=== PATIENT | male | born 1955 | race Caucasian/White ===

== ENCOUNTER → 2018-02-18 10:09 | Outpatient (CLI) | payer MEDICAID, SELFPAY ==
[2018-02-18 12:35] LABS: Anion Gap 6 (5-15); BUN 17 mg/dL (7-18); BUN/Creat Ratio 20.2 RATIO (10-20); Calcium,Total 9.3 mg/dL (8.5-10.1); Chloride 99 mmol/L (98-107); Creatinine, Serum 0.84 mg/dL (0.70-1.30); EST Glomerular Filtration Rate 99 mL/min (>60); Est Glom Filt Rate - Afr Amer 120 mL/min (>60); Glucose 110 mg/dL (74-106); Potassium 4.1 mmol/L (3.5-5.1); Sodium Level 135 mmol/L (136-145)
== END ==
PROVIDERS: Family Provider Family Medicine; PCP Family Medicine; Visit Provider Family Medicine
DX: E11.9 Type 2 diabetes mellitus without complications (principal)
CPT/HCPCS: 36415; 80048

== ENCOUNTER 2018-05-07 09:47 | Outpatient (RCR) | payer MEDICAID, SELFPAY | END 2018-05-08 23:59 | LOC: NS 09:47 | PROVIDERS: Family Provider Family Medicine; PCP Family Medicine; Visit Provider Orthopaedic Surgery | DX: E66.9 Obesity, unspecified (principal); Z68.42 Body mass index [BMI] 45.0-49.9, adult; Z71.3 Dietary counseling and surveillance | CPT/HCPCS: 97802 ==

== ENCOUNTER 2018-05-28 08:19 | Outpatient (RCR) | payer MEDICAID, SELFPAY | END 2018-06-07 23:59 | LOC: NS 08:19 | PROVIDERS: Family Provider Family Medicine; PCP Family Medicine; Visit Provider Orthopaedic Surgery | DX: E66.9 Obesity, unspecified (principal); Z68.42 Body mass index [BMI] 45.0-49.9, adult; Z71.3 Dietary counseling and surveillance | CPT/HCPCS: 97803 ==

== ENCOUNTER 2018-07-02 09:30 | Outpatient (RCR) | payer MEDICAID, SELFPAY | END 2018-07-08 23:59 | LOC: NS 09:30 | PROVIDERS: Family Provider Family Medicine; PCP Family Medicine; Visit Provider Orthopaedic Surgery | DX: E66.9 Obesity, unspecified (principal); Z68.42 Body mass index [BMI] 45.0-49.9, adult; Z71.3 Dietary counseling and surveillance | CPT/HCPCS: 97803 ==

== ENCOUNTER 2018-08-05 10:00 | Outpatient (RCR) | payer MEDICAID, SELFPAY | END 2018-08-07 23:59 | LOC: NS 10:00 | PROVIDERS: Family Provider Family Medicine; PCP Family Medicine; Visit Provider Orthopaedic Surgery | DX: E66.9 Obesity, unspecified (principal); Z68.42 Body mass index [BMI] 45.0-49.9, adult; Z71.3 Dietary counseling and surveillance | CPT/HCPCS: 97803 ==

== ENCOUNTER → 2018-08-21 09:57 | Outpatient (CLI) | payer MEDICAID, SELFPAY ==
[2018-08-21 13:39] LABS: AST(SGOT) 33 U/L (15-37); Alanine Aminotransfer ALT/SGPT 42 U/L (16-61); Albumin, Serum 3.9 g/dL (3.2-5.0); Alkaline Phosphatase 104 U/L (45-117); Anion Gap 8 (5-15); BUN 14 mg/dL (7-18); Calcium,Total 8.9 mg/dL (8.5-10.1); Chloride 100 mmol/L (98-107); Cholesterol 135 mg/dL (200); Creatinine, Serum 0.74 mg/dL (0.70-1.30); EST Glomerular Filtration Rate 115 mL/min (>60); Est Glom Filt Rate - Afr Amer 139 mL/min (>60); Globulin 3.6 g/dL (2.2-4.2); Glucose 121 mg/dL (74-106); High Density Lipoprotein 35 mg/dL; Potassium 4.1 mmol/L (3.5-5.1); Protein, Total 7.5 g/dL (6.4-8.2); Sodium Level 139 mmol/L (136-145); Triglycerides 177 mg/dL; Very Low Density Lipoprotein 35 mg/dL (5-40)
--- OUTSIDE RECORDS SUMMARY | 2018-10-07 00:24 | XMS RPT_ITS ---
:1955 Author Organization OHIP Care Team Providers Name Role Phone Elena Schwartz Attending Unavailable Jolliff, Elena Primary Care Unavailable Germain Pedro Attending Unavailable Jolliff, Elena Primary Care Unavailable Jolliff, Elena Attending Unavailable Jolliff, Elena Primary Care Unavailable Germain Pedro Attending Unavailable Jolliff, Elena Primary Care Unavailable Germain Pedro Attending Unavailable Jolliff, Elena Primary Care Unavailable Germain Pedro Attending Unavailable Jolliff, Elena Primary Care Unavailable Germain Pedro Attending Unavailable Jolliff, Elena Primary Care Unavailable Germain Pedro Attending Unavailable Jolliff, Elena Primary Care Unavailable PROBLEMS PROBLEMS DATE TYPE CONDITION / CODE ATTENDING STATUS SOURCE 09/17/2018 Unknown E66.9 - Obesity, Germain Pedro Active [facility] unspecified / Community E66.9(ICD-10) Hospital Repository 02/18/2018 Unknown E11.9 - Type 2 Elena Schwartz Active [facility] diabetes mellitus Community without Hospital complications / Repository E11.9(ICD-10) PROCEDURES PROCEDURES No Procedure Records FoundRESULTS RESULTS BASIC METABOLIC Collected: 08/21/2018 Status: F Source: INDIRA PROFILE (BMP) 9:58 AM [facility] REPOSITORY TYPE CODE TESTS RESULT OUT OF RANGE REFERENCE UNITS LAB L501.0100 74-106 mg/dL High GLU 121 Result Comment: Fasting Glucose result from 100 to 125 mg/dL suggests IMPAIRED HOMEOSTASIS per A.D.A. criteria. Please note revised GLUCOSE reference range effective 2017. LAB L501.1000 7-18 mg/dL Normal BUN 14 LAB L501.1100 0.70-1.30 mg/dL Normal CREAT,SERUM 0.74 Result Comment: The validity of the calculated GFR AND GFRAA in patients over 70 years has not been determined. Clinical correlation is essential. LAB L501.1110 >60 mL/min Normal EST GFR 115 Result Comment: Non- GFR Calc LAB L501.1115 >60 mL/min Normal EST GFR - AA 139 Result Comment: GFR Calc LAB L501.1300 10-20 RATIO Normal BUN/CRE 19.0 LAB L501.2200 8.5-10.1 mg/dL CA Normal 8.9 LAB L501.5300 136-145 mmol/L NA Normal 139 LAB L501.5600 3.5-5.1 mmol/L K Normal 4.1 LAB L501.5900 98-107 mmol/L CL Normal 100 LAB L501.6100 21.0-32.0 mmol/L Normal CO2 31.0 LAB L501.6200 5-15 Normal GAP 8 Performed By: #### L500.2500, L500.3400, L500.4100 #### [facility] [address] [place], [address] LIVER PROFILE Collected: 08/21/2018 Status: F Source: INDIRA 9:58 AM [facility] REPOSITORY TYPE CODE TESTS RESULT OUT OF RANGE REFERENCE UNITS LAB L501.1500 6.4-8.2 g/dL Normal T PROT 7.5 LAB L501.1800 3.2-5.0 g/dL Normal ALB 3.9 LAB L501.1950 2.2-4.2 g/dL Normal GLOB 3.6 LAB L501.4100 15-37 U/L Normal AST 33 LAB L501.4305 45-117 U/L Normal ALK P 104 LAB L501.4405 16-61 U/L Normal ALT 42 LAB L501.4600 0.20-1.00 mg/dL Normal T BILI 0.70 LAB L501.4700 0.00-0.30 mg/dL Normal D BILI 0.20 Performed By: #### L500.2500, L500.3400, L500.4100 #### [facility] [address] [facility]. [place], [place], [id number] LIPID PROFILE Collected: 08/21/2018 Status: F Source: MATHEWS 9:58 AM [facility] REPOSITORY TYPE CODE TESTS RESULT OUT OF RANGE REFERENCE UNITS LAB L501.4900 200 mg/dL Normal CHOL 135 Result Comment: <200 mg/dL Desirable 200-240 mg/dL Borderline >240 mg/dL High Risk LAB L501.5000 mg/dL Normal TRIG 177 Result Comment: The drugs N-Acetylcysteine and Metamizole may falsely depress this assay. Serum Triglycerides Reference Interval Normal <150 mg/dL Borderline high 150 - 199 mg/dL High 200 - 499 mg/dL Very High > or = 500 mg/dL LAB L501.6400 mg/dL Low HDL 35 Result Comment: The drugs N-Acetylcysteine and Metamizole may falsely depress this assay. Reference Range HDL <40 mg/dL Low HDL Cholesterol HDL >or= 60 mg/dL High HDL Cholesterol LAB L501.6500 0-130 mg/dL Normal LDL 65 LAB L501.6600 5-40 mg/dL Normal VLDL 35 Performed By: #### L500.2500, L500.3400, L500.4100 #### [facility] [address] [facility]. [place], [place], [id number] BASIC METABOLIC Collected: 02/18/2018 Status: F Source: INDIRA PROFILE (BMP) 10:10 AM [facility] REPOSITORY TYPE CODE TESTS RESULT OUT OF RANGE REFERENCE UNITS LAB L501.0100 74-106 mg/dL High GLU 110 Result Comment: Fasting Glucose result from 100 to 125 mg/dL suggests IMPAIRED HOMEOSTASIS per A.D.A. criteria. Please note revised GLUCOSE reference range effective 2017. LAB L501.1000 7-18 mg/dL Normal BUN 17 LAB L501.1100 0.70-1.30 mg/dL Normal CREAT,SERUM 0.84 Result Comment: The validity of the calculated GFR AND GFRAA in patients over 70 years has not been determined. Clinical correlation is essential. LAB L501.1110 >60 mL/min Normal EST GFR 99 Result Comment: Non- GFR Calc LAB L501.1115 >60 mL/min Normal EST GFR - AA 120 Result Comment: GFR Calc LAB L501.1300 10-20 RATIO High BUN/CRE 20.2 LAB L501.2200 8.5-10.1 mg/dL CA Normal 9.3 LAB L501.5300 136-145 mmol/L Low NA 135 LAB L501.5600 3.5-5.1 mmol/L K Normal 4.1 LAB L501.5900 98-107 mmol/L CL Normal 99 LAB L501.6100 21.0-32.0 mmol/L Normal CO2 30.0 LAB L501.6200 5-15 Normal GAP 6 Performed By: #### L500.2500 #### [facility] [address] [place], [place] [address], [place], [address] ALLERGIES ALLERGIES No Allergies Records FoundENCOUNTERS ENCOUNTERS ADMIT/DISCHARGE ACCOUNT ADMITTING ENCOUNTER LOCATION SOURCE NUMBER CLASS 09/17/2018 [id number] Ambulatory [place] [facility] 1 [facility] ing:NS Repository 08/25/2018/ [id number] [facility] [place] [facility] 8 1 [facility] ing:NS Repository 08/21/2018 [id number] Ambulatory Indira Indira 2 [facility] ing:MFPLAB Repository 08/05/2018/ [id number] Ambulatory [place] Ind[facility] 8 9 [facility] ing:NS Repository 07/02/2018/ [id number] Ambulatory [facility] 8 0 [facility] ing:NS Repository 05/28/2018/ [id number] Ambulatory Ind[facility] [place] 8 6 [facility] ing:NS Repository 05/07/2018/ [id number] Amb[facility] [place] [facility] 8 2 [facility] ing:NS Repository 02/18/2018 [id number] Ambulatory [place] Indira 2 [facility] ing:MFPLAB Repository PAYERS PAYERS ENCOUNTER GUARANTOR PAYER SUBSCRIBER SOURCE 09/17/2018 Negra J [id number] Primary Negra [place] Insurance:CARESOURCEP EwingDOB: [facility] Number: [id number] [address]Qzo: 330 [id number] Repository [phone] (HP) Date:2018-05-06[address]ATTN: [place] [address]NF: 09/17/2018 Secondary NOT GIVENUNK Indira Insurance:SELF PAY [facility] Number: Effective Repository Date:2018-09-08 08/25/2018 Negra J [id number] Primary Negra [place] Insurance:CARESOURCEP EwingDOB: [facility] Number: [id number] [address]Tok: 330 [id number] Repository [phone] (HP) Date:2018-05-06[address]ATTN: [place] [address]BY: 08/25/2018 Secondary NOT GIVENUNK [place] Insurance:SELF PAY [facility] Number: Effective Repository Date:2018-08-08 08/21/2018 Negra J [id number] [facility]:CARESOURCEP EwingDOB: [facility] Number: [id number] [address]Xuu: 330 [id number] Repository [phone] () Date:2018-08-21[address]ATTN: [place] [address]JB: 08/21/2018 Secondary NOT GIVENUNK [place] Insurance:SELF PAY [facility] Number: Effective Repository Date:2018-08-21 08/05/2018 Negra [id number] Primary Negra [place] Insurance:CARESOURCEP [facility] Number: [id number] [facility] [address]Ons: [phone] [id number] Repository [phone] () Date:2018-05-[address]ATTN: [place] [address]XO: 08/05/2018 Secondary NOT GIVENUNK Indira Insurance:SELF PAY [facility] Number: Effective Repository Date:2018-07-09 07/02/2018 Negra [id number] [facility] Insurance:CARESOURCEP [facility] Number: [id number] [address]Epk: [phone] [id number] Repository [phone] () Date:2018-05-06[address]ATTN: [place] [address]KA: 07/02/2018 Secondary NOT GIVENUNK Indira Insurance:SELF PAY [facility] Number: Effective Repository Date:2018-06-08 05/28/2018 Negra [id number] [facility] Insurance:CARESOURCEP [facility] Number: [id number] [facility] [address]Now: 330 [id number] Repository [phone] () Date:2018-05-06[address]ATTN: [place] [address]OQ: 05/28/2018 Secondary NOT GIVENUNK [place] Insurance:SELF PAY [facility] Number: Effective Repository Date:2018-05-09 05/07/2018 Negra [id number] [facility] Insurance:CARESOURCEP EwingDOB: [facility] Number: [id number] [facility] [address]Frz: [phone]) [id number] Repository [phone] () Date:2018-05-06[address]ATTN: [place] [address]IG: 05/07/2018 Secondary NOT GIVENUNK [place] Insurance:SELF PAY [facility] Number: Effective Repository Date:2018-05-06 02/18/2018 Negra [id number] Primary Negra [place] Insurance:BENITOSOMARGOT YanB: [facility] Number: [id number] [facility] [address]Cms: [phone] [id number] Repository [phone] () Date:2018-02-18[address]ATTN: [place] [address]RO: 02/18/2018 Secondary NOT GIVENUNK Indira Insurance:SELF PAY [facility] Number: Effective Repository Date:2018-02-18
== END ==
PROVIDERS: Family Provider Family Medicine; PCP Family Medicine; Visit Provider Family Medicine
DX: E11.9 Type 2 diabetes mellitus without complications (principal)
CPT/HCPCS: 36415; 80048; 80061; 80076

== ENCOUNTER 2018-08-25 09:31 | Outpatient (RCR) | payer MEDICAID, SELFPAY | END 2018-09-07 23:59 | LOC: NS 09:31 | PROVIDERS: Family Provider Family Medicine; PCP Family Medicine; Visit Provider Orthopaedic Surgery | DX: E66.9 Obesity, unspecified (principal); Z68.42 Body mass index [BMI] 45.0-49.9, adult; Z71.3 Dietary counseling and surveillance | CPT/HCPCS: 97803 ==

== ENCOUNTER 2018-10-02 08:30 | Outpatient (RCR) | payer MEDICAID, SELFPAY | END 2018-10-08 23:59 | LOC: NS 08:30 | PROVIDERS: Family Provider Family Medicine; PCP Family Medicine; Visit Provider Orthopaedic Surgery | DX: E66.9 Obesity, unspecified (principal); Z68.42 Body mass index [BMI] 45.0-49.9, adult; Z71.3 Dietary counseling and surveillance | CPT/HCPCS: 97803 ==

== ENCOUNTER 2018-10-30 09:00 | Outpatient (RCR) | payer MEDICAID, SELFPAY | END 2018-10-30 23:59 | disposition home or self-care (01) | LOC: NS 09:00 | PROVIDERS: Family Provider Family Medicine; PCP Family Medicine; Visit Provider Orthopaedic Surgery | DX: E66.9 Obesity, unspecified (principal); Z68.42 Body mass index [BMI] 45.0-49.9, adult; Z71.3 Dietary counseling and surveillance | CPT/HCPCS: 97803 ==

== ENCOUNTER → 2018-12-07 13:44 | Outpatient (CLI) | payer MEDICAID, SELFPAY | PROVIDERS: Family Provider Family Medicine; PCP Family Medicine; Referring Provider Family Medicine; Visit Provider Family Medicine | DX: L02.91 Cutaneous abscess, unspecified (principal) | CPT/HCPCS: 87070; 87077; 87186; 87205 ==

== ENCOUNTER 2018-12-08 09:35 | Emergency (ER) | payer MEDICAID, SELFPAY ==
[2018-12-08 09:36] VITALS: BP 164/94; PULSE 100; RESP 16; TEMP 36.7; O2SAT 93; BMI 48.0
--- NOTE | 2018-12-08 10:09 | RAD_ITS ---
STUDY: X-RAY - LEFT KNEE REASON FOR EXAM: Male, 63 years old. Increasing left knee pain. No known injury. TECHNIQUE: 4 view(s) of the knee. COMPARISON: None. FINDINGS: Normal visualized distal femur. There is a 2.8 cm x 2 cm sclerotic focus arising along the lateral aspect of the proximal diaphysis of the tibia. A central lucency is seen within it. This may represent an osteoid osteoma. Normal proximal tibiofibular articulation. There is moderate degenerative arthrosis of the medial femorotibial compartment with moderate joint space narrowing. Normal lateral femorotibial compartment. There is moderate degenerative arthrosis of the patellofemoral articulation. Small joint effusion. RAD/Knee 4 or More Views IMPRESSION: Degenerative arthrosis. Focal sclerosis along the lateral aspect of the proximal tibia as described. A central lucency is seen. Osteoid osteoma should be ruled out. Small joint effusion. Electronically Signed: Adam Franklin, at 10:43 EDT , Service support ,
--- NOTE | 2018-12-08 10:11 | ED.VISSUMM ---
- ER Visit Summary Date of Service: 12/08/18 Chief Complaint: Knee pain History of Present Illness: The patient is a 63 M with left knee pain. Patient has had ongoing pain, but it is getting more severe. No new injuries or symptoms except he was just unable to bear weight because the pain was so severe. He is using anti-inflammatories with no relief. He does have a known history of osteoarthritis. No history of gout or infections. No instrumentation or surgery to the knee. Physical Examination: Afebrile and vital signs unremarkable. Inspection is normal. Good range of motion in extension. No laxity or deformity. He does have some medial sided joint line tenderness on the left knee. Otherwise exam is unremarkable. He is neurovascular intact distally. His calf is soft and supple. Test Results: X-rays performed Emergency Department Course and Treatment: Patient treated with oxycodone while awaiting results. X-rays show arthritis and a small effusion. He does have a lucency over the lateral proximal tibia concerning for malignancy. He will be treated with pain medication and crutches. Follow-up with Dr. Flor for orthopedic oncology. Treatment Plan: As above Disposition: Discharge Impression: 1. Left knee pain This note was generated with [employer]ide[employer] dictation software. It may contain incorrect words, spelling, and punctuation that were not noted in review of the chart prior to signing ED Disposition - Plan for ED Patient: Referrals: Elena Schwartz MD [Primary Care Provider] -
[2018-12-08] MEDS: oxyCODONE 5 MG Tablet 10 MG PO (10:37)
--- NOTE | 2018-12-08 11:01 | ED.DEP ---
ED Disposition - Plan for ED Patient: Instructions: ED Knee Pain UKO Prescriptions: traMADol [Ultram] 50 mg PO Q6H PRN PRN 3 Days #12 tab PRN Reason: Pain Additional Instructions: Follow up Dr. Travis Flor at [facility] [phone]
[2018-12-08 11:36] VITALS: BP 147/83; PULSE 100; RESP 18; O2SAT 99
== END 2018-12-08 11:37 | disposition home or self-care (01) ==
LOC: ED 10:25
PROVIDERS: Emergency Provider Emergency Medicine; Family Provider Family Medicine; PCP Family Medicine
DX: M25.562 Pain in left knee (principal); M17.12 Unilateral primary osteoarthritis, left knee
CPT/HCPCS: 73564; 99283

== ENCOUNTER → 2019-02-23 | Outpatient (CLI) | payer OTHER, SELFPAY ==
[2019-02-23 12:44] LABS: Hemoglobin A1c 7.4 % (4.2-6.3)
== END | disposition home or self-care (01) ==
LOC: MFPLAB 10:07
PROVIDERS: Family Provider Family Medicine; PCP Family Medicine; Referring Provider Family Medicine; Visit Provider Family Medicine
DX: E11.9 Type 2 diabetes mellitus without complications (principal)
CPT/HCPCS: 36415; 83036

== ENCOUNTER → 2019-02-24 | Outpatient (CLI) | payer OTHER, SELFPAY ==
[2019-02-24 14:38] LABS: Microalbumin,Random Urine 29.1 mg/L (NO RANGE EST.)
== END | disposition home or self-care (01) ==
LOC: LABSPEC 12:16
PROVIDERS: Family Provider Family Medicine; PCP Family Medicine; Referring Provider Family Medicine; Visit Provider Family Medicine
DX: E11.9 Type 2 diabetes mellitus without complications (principal)
CPT/HCPCS: 82043; 82570

== ENCOUNTER 2019-03-03 09:12 | Day surgery (SDC) | payer OTHER, SELFPAY ==
[2019-03-03 09:24] VITALS: BP 144/89; PULSE 90; RESP 18; TEMP 36.5; O2SAT 95; BMI 47.2
--- NOTE | 2019-03-03 09:43 | H&P.OPEN ---
History of Present Illness Date of Admission: 03/03/19 The patient is a 63 year old M presents for screening colonoscopy. Patient states he last had a scope over 10 years ago. States he has bowel movements daily, denies any blood, denies any abdominal pain/nausea/vomiting. Patient denies any family history of colon cancer. Past Medical/Surgical History - Planned Operation Planned Operative Procedure/s: COLONOSCOPY Date of Operative Procedure: 03/03/19 Permit Signed: Yes S.O.S: No Is This Patient Having a Total Joint: No - Previous Hospitalizations/Surgeries HX Hospitalizations: No HX of Surgeries: COLONOSCOPY Any Problems With Anesthesia: No You/Your Family Experience Fever (Hyperthermia) With Anes: No Cholinesterase deficiency: No - Cardiovascular Hx Chest Pain within Last 2 months: No Hx of Irregular Heartbeat and/or Afib: No Hx Heart Attack: No Hx Congestive Heart Failure: No Hx Rheumatic Fever: No Hx Hypertension: Yes - ON MED Hx Internal Defibrillator: No Hx Pacemaker: No Hx Cardiac Catheterization: No Hx Cardiac Surgery/Stents/Etc.: No Hx Stress Test: No HX Edema: No Hx Pain in Legs when Walking/Leg Cramps: No - Respiratory Chronic Cough: No HX of Shortness of Breath: No Hoarseness: No Hx Chronic Obstructive Pulmonary Disease (COPD): No Hx Asthma: No Hx Emphysema: No Hx Sleep Apnea: No Hx Oxygen Use at Home: No Hx Respiratory Tract Infection/Cold (presently): No Do You Snore Loudly (louder than talking or can be heard): No Do You Often Feel Tired/ Fatigued/ Sleepy Dring Daytime?: No Has Anyone Observed You Stop Breathing During Sleep?: No Result (for STOP score): Negative Hx Smoking: No Smoking Status: Never smoker - Gastrointestinal Hx Gastroesophageal Reflux: No Hx Gastrointestinal Disorders: No Hx Gastrointestinal Bleed: No Hx Ulcer: No Hx Hiatal Hernia: No Difficulty Chewing/Swallowing: Yes Recent Onset of Swallowing Problems: No Special diet followed at home: No Hx Unplanned Weight Loss of 20#: No HX Unplanned Weight Gain of 20#: No - Neurological Hx Seizures: No HX Syncope/Blackout Spells/Unconsciousness: No Hx CVA/Stroke: No Hx Transient Ischemic Attacks (TIA): No Hx Multiple Sclerosis: No Hx Parkinson's Disease: No Hx Head/Neck Injury: Yes - FX SKULL 28 YRS AGO Hx Headaches: No Hx Back Injury/Pain: Yes - PINCHED NERVE Recent Onset of Speech Difficulty: No Restless Legs: No Does patient have nerve stimulator: No - Blood Disorder Hx Leukemia: No Bleeding Tendencies: No Hx Deep Vein Thrombosis: No Hx High Cholesterol: Yes - ON MED Blood Transmitted Disease: No Hx Hepatitis: No Hx Cirrhosis: No Hx Anemia: No Hx Blood Disorders: No - Reproduction : No Is Patient Lactating: No Hx Hysterectomy: No - Genitourinary Hx Renal Disease: No - Musculoskeletal Hx Arthritis: Yes Hx Rheumatoid Arthritis: No Hx Gout: No Recent Onset of an Orthopedic Problem: Yes - Endocrine Hx Diabetes: Yes Insulin: No Thyroid Disease: No Hx Steroid Therapy: No - Psycho/Social Hx Substance Use: No Hx Alcohol Use: No Hx Anxiety: No Hx Depression: No Mental Illness: No Hx Dementia: No - Miscellaneous Hx Cancer: No Recent Exposure to Contagious Disease: No Active MRSA: No Hx of C-Diff: No Any Loose Teeth: No Allergies acetaminophen [From Tylenol] Allergy (Verified 03/01/19 11:54) Rash feathers Allergy (Verified 03/01/19 11:54) Other CONGESTION - Discharge Is Pt Admitted From a Jail, or a [place] [facility]: No Who Could Help: FATHER-TONY After D/C, Where Do you Plan to Go: Return Home - Physical Exam General: Alert, Oriented x3, Cooperative, No apparent distress HEENT: Atraumatic Lungs: Normal air movement Cardiovascular: Regular rate Abdomen: Soft, Non Tender - No peritoneal signs, Non-Distended, Obese Extremities: No clubbing, No cyanosis, No edema Neurological: Cranial nerves II-XII grossly intact Psych/Mental Status: Normal Affect Vital Signs Temp Pulse Resp BP Pulse Ox 97.7 F L 90 18 144/89 H 95 03/03/19 09:24 03/03/19 09:24 03/03/19 09:24 03/03/19 09:24 03/03/19 09:24 Oxygen Delivery Method Room Air Weight: 275 lb 2.19 oz Body Mass Index (BMI) 47.2 Assessment/Plan 63-year-old male for screening for colon cancer Surgery Risks - Colonoscopy I discussed with the patient the risks of the procedure: Yes Risks Include but are not Limited To: Risks include but are not limited to: Bleeding, perforation requiring further surgery, inability to complete colonoscopy requiring barium enema. Patient no further questions.
[2019-03-03 09:51] LABS: Bedside Glucose 148 mg/dL (70-110)
--- NOTE | 2019-03-03 10:22 | OP.ENDO_ITS ---
03/03/2019 lEena Schwartz [address] [place] [address] Re : Colonoscopy procedure for Wes Roth Dear Dr. Schwartz This procedure was performed on Sunday, March 03, 2019. My impressions and recommendations are as follows: Impressions : - The entire examined colon is normal on direct and retroflexion views. - No specimens collected. Recommendations : - Discharge patient to home. - Continue present medications. - Repeat colonoscopy in 10 years for screening purposes. My findings are described in the full procedure note, which is enclosed. If I can be of further assistance, please feel free to contact me at Doctor phone number(s): , Work: . Sincerely, MD Marianela Andrade MD 03/03/2019 10:21:49 AM This report has been signed electronically.
[2019-03-03 10:25] VITALS: BP 144/89; BP 145/65; PULSE 99; RESP 18; TEMP 36.1
[2019-03-03 10:30] VITALS: BP 144/89; BP 160/80; PULSE 99; RESP 18; O2SAT 94
[2019-03-03 10:35] VITALS: BP 144/89; BP 167/77; PULSE 92; RESP 18; O2SAT 94
[2019-03-03 10:40] VITALS: BP 144/89; BP 158/75; PULSE 87; RESP 18; TEMP 36.6; O2SAT 94
[2019-03-03 10:49] VITALS: BP 144/89
== END 2019-03-03 11:09 | disposition home or self-care (01) ==
LOC: EN 09:12 → AC 09:14
PROVIDERS: Family Provider Family Medicine; PCP Family Medicine; Referring Provider Surgery; Visit Provider Surgery
PROC: 0DJD8ZZ Inspection of Lower Intestinal Tract, Via Natural or Artificial Opening Endoscopic (ICD-10-PCS; CPT 45378; principal; 2019-03-03 10:10)
DX: Z12.11 Encounter for screening for malignant neoplasm of colon (principal); E78.00 Pure hypercholesterolemia, unspecified; I10 Essential (primary) hypertension; E11.9 Type 2 diabetes mellitus without complications; Z79.84 Long term (current) use of oral hypoglycemic drugs; Z79.82 Long term (current) use of aspirin; Z79.899 Other long term (current) drug therapy
CPT/HCPCS: 45378; 82962; J7120

== ENCOUNTER → 2019-08-24 10:13 | Outpatient (CLI) | payer OTHER, SELFPAY ==
[2019-08-24 12:56] LABS: AST(SGOT) 24 U/L (15-37); Alanine Aminotransfer ALT/SGPT 38 U/L (16-61); Albumin, Serum 3.7 g/dL (3.2-5.0); Alkaline Phosphatase 112 U/L (45-117); Anion Gap 7 (5-15); BUN 18 mg/dL (7-18); BUN/Creat Ratio 19.4 RATIO (10-20); Bilirubin, Direct 0.12 mg/dL (0.00-0.30); Calcium,Total 9.1 mg/dL (8.5-10.1); Chloride 100 mmol/L (98-107); Cholesterol 156 mg/dL (200); Creatinine, Serum 0.93 mg/dL (0.70-1.30); EST Glomerular Filtration Rate 88 mL/min (>60); Est Glom Filt Rate - Afr Amer 106 mL/min (>60); Globulin 4.4 g/dL (2.2-4.2); Glucose 158 mg/dL (74-106); High Density Lipoprotein 32 mg/dL; Potassium 4.3 mmol/L (3.5-5.1); Protein, Total 8.1 g/dL (6.4-8.2); Sodium Level 136 mmol/L (136-145); Triglycerides 240 mg/dL; Very Low Density Lipoprotein 48 mg/dL (5-40)
== END ==
PROVIDERS: Family Provider Family Medicine; PCP Family Medicine; Referring Provider Family Medicine; Visit Provider Family Medicine
DX: E11.9 Type 2 diabetes mellitus without complications (principal)
CPT/HCPCS: 36415; 80048; 80061; 80076

== ENCOUNTER 2019-09-20 07:25 | Observation (INO) | payer OTHER, SELFPAY ==
[2019-08-26 15:23] VITALS: BP 147/91; PULSE 75; RESP 16; TEMP 37.2; O2SAT 91; BMI 48.1
--- NOTE | 2019-08-26 15:28 | SDCEKG_ITS ---
Test Reason : Blood Pressure : / mmHG Vent. Rate : 089 BPM Atrial Rate : 089 BPM P-R Int : 142 ms QRS Dur : 076 ms QT Int : 368 ms P-R-T Axes : 037 040 056 degrees QTc Int : 447 ms Normal sinus rhythm Normal ECG Confirmed by ÁLVARO DE SANTIAGO, SARAH ([id number]), editorial clerk ANDREW HARVEY ([id number]) on 08/30/2019 11:20:35 AM Referred By: Drew Jiménez Confirmed By:SARAH REA MD
[2019-08-26 15:56] LABS: Absolute Lymphocyte Count 0.85 X10^3/uL (0.83-4.51); Absolute Neutrophil Count 7.6 X10^3/uL (2.0-7.7); Basophil# 0.04 X10^3/uL; Basophil% 0.4 % (0-1); Eosinophil# 0.09 X10^3/uL; Hematocrit 46.2 % (40-54); Hemoglobin 15.2 g/dL (13.0-16.5); Lymphocyte # 0.85 X10^3/ul (4.0); Lymphocyte % 9.1 % (19-41); Mean Corp Hgb Conc 32.9 g/dL (32-36); Mean Corpuscular Hgb 30.8 pg (27.0-32.0); Mean Corpuscular Volume 93.5 fL (80-94); Mean Platelet Vol. 10.5 fl (6.2-12.0); Monocyte# 0.74 X10^3/uL; Monocyte% 7.9 % (0-10); NRBC Flagged by Analyzer 0 % (0-5); Neutrophil # 7.57 X10^3/uL (2.7-7.7); Neutrophil % 81.2 % (47-70); Platelet Count 226 K/mm3 (150-450); RBC Distribution Width SD 47.4 fl (35.1-43.9); Red Blood Count 4.94 M/mm3 (4.6-6.2); White Blood Count 9.3 K/mm3 (4.4-11.0)
[2019-08-26 16:21] LABS: Hemoglobin A1c 7.7 % (4.2-6.3)
[2019-08-26 16:29] LABS: Anion Gap 6 (5-15); BUN 17 mg/dL (7-18); Calcium,Total 9.2 mg/dL (8.5-10.1); Chloride 100 mmol/L (98-107); Creatinine, Serum 0.85 mg/dL (0.70-1.30); EST Glomerular Filtration Rate 97 mL/min (>60); Est Glom Filt Rate - Afr Amer 117 mL/min (>60); Estimated Creatinine Clearance 75.45 ml/min; Glucose 126 mg/dL (74-106); Potassium 3.7 mmol/L (3.5-5.1); Sodium Level 139 mmol/L (136-145)
[2019-09-20] VITALS (13 sets, daily range): BP systolic 100–135; BP diastolic 50–94; PULSE 80–97; RESP 16–20; TEMP 36.1–37.2; O2SAT 92–98; BMI 48.1
[2019-09-20 05:46] LABS: Bedside Glucose 196 mg/dL (70-110)
[2019-09-20] MEDS: Magnesium Sulfate 4gm/100mL 4 GM/100 ML IV.SOLN. IV (06:02)
[2019-09-20] MEDS: Gabapentin 600 MG Tablet PO (06:02)
[2019-09-20] MEDS: Lactated Ringers 1,000 ML 100 ML IV ×3 (06:04→20:44)
[2019-09-20] MEDS: Insulin Lispro 100 UNIT/ML INSULN.PEN SC (06:27)
--- NOTE | 2019-09-20 07:15 | KNEE_PTH ---
PATIENT: NEGRA VIVAS LOC: MS3 U#:[id number] AGE/SX: 64/M ROOM: OR310 RE09/20/[address]: Dr. Drew Jiménez DO : 1955 BED: 1 DIS: 09/22/2019 SPEC #: [id number] RECD: 09/20/19 10:14 STATUS: CONSTANTINO REQ #: [id number] BEV: 09/20/19 07:[address]: Drew Jiménez DEPT: SURGICAL PATHOLOGY RECD BY: Gentry Arroyo ENTERED: 09/20/19 11:24 SP TYPE: TOTAL KNEE OTHR DR: Dr. Elena Schwartz MD Tissues: A - Knee, NOS B - Knee, NOS Procedures: Decalcification bone/plaque Surgery Specimen Level IV HEADER OPERATION: ERAS, total knee replacement PRE-OP DIAGNOSIS: Right knee osteoarthritis TISSUE SUBMITTED: A - Bone and tissue right knee, B - Soft tissue right knee MICROSCOPIC DIAGNOSIS A. Bone and soft tissue of right knee, total knee resection: Severe degenerative joint disease. B. Soft tissue of right knee, biopsy: Fibrinoid material with degenerative change suggestive of synovium. Minute fragments of bone with no pathologic change. AM:austyn 09/23/19 MICROSCOPIC DESCRIPTION Slides are reviewed. GROSS DESCRIPTION A - Received is one container designated bone and soft tissue right knee. The specimen consists of multiple fragments of chan-yellow bone measuring in aggregate 11 x 9 x 3 cm. Also in the specimen container are multiple fragments of yellow-white soft tissue measuring in aggregate 12 x 7 x 2 cm. A number of bony fragments contain articular surfaces consistent with tibial plateau and femoral condyle and displaying prominent osteophyte formation, eburnation, and bone erosion. Galvanometer Assembler sections are submitted in two cassettes as follows: 1 - soft tissue, 2 - bone after decalcification. / B - Received in fixative is one container labeled with the patient's name and designated soft tissue right knee. The specimen consists of multiple irregular fragments of light to dark chan soft tissue that in aggregate measure 5 x 4 x 1 cm. The specimen is totally submitted in one cassette. / AM:austyn 09/20/19 TC:5 CPT: 49581 x2, 33856
[2019-09-20] MEDS: Cefazolin 2 GM in 0.9% Normal Saline 100 ML IV (07:21)
--- NOTE | 2019-09-20 08:49 | OP.PCM_ITS ---
Report of Operation Date of Procedure: 09/20/19 Pre-Operative Diagnosis: OA right knee Post-Operative Diagnosis: same Surgery/Procedure Performed:: Right TKR Description of Surgical Findings:: Primary Surgeon/Physician: Drew Jiménez cross country/track and field coach: Librado eHrrera PA-C cross country/track and field coach: Pre-Operative Diagnosis: OA right knee Post-Operative Diagnosis: same Surgery/Procedure Performed: right TKR Estimated Blood Loss: 25 cc Specimen's Removed: bone Type of Anesthesia: spinal ASA Class: 3 Implants: [Caleb Triathlon size 5 PS femur, size 5 tibia, 35 mm patella and 9 mm poly (all components cemented) ] Indications: Patient has severe end-stage osteoarthritis diagnosed via x-rays in the knee. They have failed all forms of conservative measures including activity modification, injections, anti-inflammatories, use of assistive device. The patient has pain that affects on a daily basis and prevents him from doing things that they enjoyed. They have elected to undergo the above procedure. The risks of the procedure were discussed at length and their questions were answered. Procedure Description: The patient was greeted in the preoperative area. The [right ] knee was then marked with a surgical marker. Patient was then taken to or [address]. They were administered a dose of antibiotics as well as tranexamic acid. Once adequate anesthesia was obtained and airway was secured to placed in supine position on the operating room table. A well-padded tourniquet was placed on the affected extremity. Leg was then prepped and draped in the usual sterile fashion from the knee down. Ioban was used on the skin. Surgical timeout was then performed and confirmed with all present. Six-inch Esmarch was used to examine the limb and tourniquet was then inflated to 250 mmHg. A longitudinal incision was then planned and carried out in the anterior aspect of the knee. The dissection was then carried the length of the incision the extensor mechanism was identified. Standard medial parapatellar arthrotomy was then performed revealing severe eburnation of bone and periarticular osteophytes. There is complete loss of cartilage especially in the medial compartment with varus alignment. Anterior fat pad was removed for visualization purposes and the anterior medial aspect of the tibia was skeletoni zed for exposure to the knee. The knee was then flexed the patella was inverted. Opening reamer was then used in the femur approximately 1 cm anterior to the attachment of the PCL. The intramedullary valgus wand was then placed in the femur set at 5? of valgus. The distal femoral cutting jig was then applied to the femur with anticipated resection of approximately 8 mm. This was then made with a oscillating saw. The sizing guide was then placed referencing off the posterior condyles and also reference off the epicondylar axis. This was measured and the appropriate size 4-in-1 cutting jig was then applied to the distal femur. Anterior posterior cuts were made followed by the anterior and posterior chamfer cuts. The intramedullary tibial alignment jig was then applied to the tibia referencing off the medial one third of the tibial tubercle the anterior tibial spine the middle aspect of the tibiotalar joint. Also reference off patient's [place] slope. The tibial cutting jig was then pinned with anticipated resection of 2 mm off of the deficient medial tibial condyle. This cut was made with the oscillating saw. Once this was complete a laminar heating mechanic was utilized in both medial lateral meniscus were removed and a posterior capsular osteophytes were also removed. Posterior capsule release was performed in the posterior capsule as well as the geniculate arteries are tr eated with the aqua [place]. The tibia was incised and the appropriate sized tibial tray was then pinned. The femoral box cutting jig was then applied to the femur and the box was prepared removing a portion of the intercondylar notch. The femoral trial was then placed and the knee was trialed. Full flexion-extension were easily achieved. The knee seemed to balance quite nicely. Any remaining osteophytes were removed at this time. Once this was complete the patella was everted and the EmbedStore patella reaming device was then utilized the patella was then placed in the appropriate jig and reamer was then used to remove approximately 9 mm of the undersurface of the patella. A soft tissue remaining was in the way was removed and patella trial was then placed listed maintain excellent tracking using the no thumbs technique. The tibial tray at this point was punched to accommodate the fins of the final implant. At this point cement was mixed on the back table. The trial components were removed and the knee was copiously irrigated. Did use a cocktail of injection for postoperative pain control. The final components were then cemented in the standard fashion and excess cement was removed with cement removal tools and patellar clamp is placed in the patella. As the cement had cured in full extension tourniquet was deflated and hemostasis was perfect with Bovie cautery as well as the aqua Manus. Needle is once again trialed with different size polyethylenes to ensure the full range of motion was achieved as well as excellent balancing ligamentously was achieved. At this point the knee was copiously irrigated. Final implant was then inserted locking mechanism was engaged and confirmed to be locked. The arthrotomy was then closed with #1 Vicryl aggravate type fashion interrupted. Subcutaneous tissue was closed with 0 Vicryl and surgical ivon were placed in the skin. A occlusive silver impregnated dressing was then applied followed by well-padded sterile dressing secured with an Nico wrap. The patient was taken to the PACU in stable condition. No complications known at this time. Postoperatively we will maintain standard total knee postoperative protocol. The use of the physician engineering assistant was integral during this procedure. They assisted with positioning placement of the tourniquet retracting closure and placement of the dressing. The procedure would have been much more difficult without their expertise and assistance cross country/track and field coach: Neri Herrera Anesthesiologist: Harry Berry Specimen's removed: bone Estimated Blood Loss (mL): 25 cc - Admit VTE Documentation VTE Present on Admission: No VTE Mechan Device Prophylaxis: SCD's, Thigh High ANTHONY Hose VTE Pharm Prophylaxis ordered?: Yes
[2019-09-20 09:46] LABS: Bedside Glucose 182 mg/dL (70-110)
[2019-09-20 10:07] LABS: Hematocrit 45.6 % (40-54); Hemoglobin 14.8 g/dL (13.0-16.5); Mean Corp Hgb Conc 32.5 g/dL (32-36); Mean Corpuscular Hgb 30.8 pg (27.0-32.0); Mean Platelet Vol. 10.5 fl (6.2-12.0); Platelet Count 252 K/mm3 (150-450); RBC Distribution Width CV 13.8 % (11.6-14.6); RBC Distribution Width SD 48.2 fl (35.1-43.9)
[2019-09-20 10:19] LABS: Anion Gap 5 (5-15); BUN 20 mg/dL (7-18); BUN/Creat Ratio 17.5 RATIO (10-20); Calcium,Total 9.4 mg/dL (8.5-10.1); Chloride 100 mmol/L (98-107); Creatinine, Serum 1.14 mg/dL (0.70-1.30); EST Glomerular Filtration Rate 69 mL/min (>60); Est Glom Filt Rate - Afr Amer 84 mL/min (>60); Estimated Creatinine Clearance 56.26 ml/min; Glucose 181 mg/dL (74-106); Potassium 4.1 mmol/L (3.5-5.1); Sodium Level 136 mmol/L (136-145)
[2019-09-20] MEDS: Acetaminophen 500 MG Tablet 1000 MG PO ×2 (13:26→22:23)
[2019-09-20] MEDS: hydroCHLOROthiazide 25 MG Tablet PO (13:26)
[2019-09-20] MEDS: Cefazolin 1 GM/50 ML BAG IV (15:33)
--- NOTE | 2019-09-20 16:11 | CASEMGMT ---
Social Work Note SW received message from pt's sister Michelle asking if this worker can call her back to discuss meeting time to meet with this worker. FUAD placed a call to pt's sister Michelle and updated Michelle that this worker is up on floor at around 9:00am and she can come to front end drupal developer and ask to speak with SW then this SW can meet with her in pt's room. Michelle states that pt will need to go to either SNF or RU as Dr. Palomo and Dr. Jiménez mentioned RU for pt. SW updated Michelle that going to SNF or RU comes down to how pt does with PT/OT. SW explained that if pt is doing well with therapy then he will get denied to go to SNF or RU. FUAD educated Michelle on RU vs TCU at [facility] and that this worker can put pt's name on referral list for units. Michelle would like this worker to put pt on TCU/RU list. SW informed Michelle on referral process and that pt will need pre-cert to go to either RU or TCU. Michelle states understanding. Michelle states there is no way pt can return home as pt lives alone and has no bathroom on 1st floor. FUAD again reiterated to Michelle that it just depends on how pt does with PT/OT but that this worker can meet with her and pt tomorrow morning. Michelle states understanding. FUAD placed a call to referral line and provided referral for either TCU or RU. SW to meet with pt and pt's sister tomorrow to discuss discharge plans. Plan: RU vs TCU pending acceptance and pre-cert Estefania De La Fuente PIG STICKER, LIGHT BULB REPLACER
[2019-09-20] MEDS: Aspirin 325 MG Tablet PO (17:28)
[2019-09-20] MEDS: oxyCODONE 5 MG Tablet PO (21:00)
[2019-09-20] MEDS: 0.9% Saline Lock 10 ML Syringe IV (22:21)
[2019-09-20] MEDS: Senna/Docusate Sodium 1 Tablet 2 TABLET PO (22:23)
[2019-09-20] MEDS: Atorvastatin Calcium 40 MG Tablet PO (22:23)
[2019-09-20] MEDS: Latanoprost 0.005% 1 Bottle 1 DRP EACH EYE (22:26)
[2019-09-21] MEDS: Cefazolin 1 GM/50 ML BAG IV (00:01)
[2019-09-21] MEDS: 0.9% Saline Lock 10 ML Syringe IV (04:55)
[2019-09-21 04:56] VITALS: BP 131/61; PULSE 79; RESP 20; TEMP 36.6; O2SAT 97
[2019-09-21] MEDS: Acetaminophen 500 MG Tablet 1000 MG PO ×3 (05:01→21:04)
[2019-09-21 05:40] LABS: Hematocrit 40.4 % (40-54); Hemoglobin 12.5 g/dL (13.0-16.5); Mean Corp Hgb Conc 30.9 g/dL (32-36); Mean Corpuscular Hgb 29.7 pg (27.0-32.0); Mean Platelet Vol. 10.3 fl (6.2-12.0); Platelet Count 193 K/mm3 (150-450); RBC Distribution Width SD 49.2 fl (35.1-43.9); Red Blood Count 4.21 M/mm3 (4.6-6.2); White Blood Count 10.4 K/mm3 (4.4-11.0)
[2019-09-21 06:02] LABS: Anion Gap 5 (5-15); BUN 22 mg/dL (7-18); BUN/Creat Ratio 26.3 RATIO (10-20); Calcium,Total 8.4 mg/dL (8.5-10.1); Chloride 98 mmol/L (98-107); Creatinine, Serum 0.84 mg/dL (0.70-1.30); EST Glomerular Filtration Rate 99 mL/min (>60); Est Glom Filt Rate - Afr Amer 120 mL/min (>60); Estimated Creatinine Clearance 76.35 ml/min; Glucose 147 mg/dL (74-106); Potassium 3.7 mmol/L (3.5-5.1); Sodium Level 132 mmol/L (136-145)
[2019-09-21] MEDS: oxyCODONE 5 MG Tablet PO ×3 (07:35→18:16)
--- NOTE | 2019-09-21 07:39 | PCM.PN.ORT ---
Subjective: Patient sitting at bedside eating breakfast. Patient states pain is well-managed. Patient denies chest pain, shortness of breath, calf pain, nausea vomiting. Patient is awaiting approval for him to go to [facility] or for for rehab. Objective: Dressing is clean dry intact. Negative signs and symptoms of DVT. Patient is afebrile, neurovascular is otherwise intact. Labs and vitals all reviewed noted in the medical record. Patient has good plantar flexion dorsiflexion of the bilateral ankles and feet. - Physical Exam Vitals/I&O's: Vital Signs Temp Pulse Resp BP Pulse Ox 98 F 79 20 H 131/61 H 97 09/21/19 04:56 09/21/19 04:56 09/21/19 04:56 09/21/19 04:56 09/21/19 04:56 Oxygen Flow Rate (L/min) 1 Oxygen Delivery Method Nasal Cannula Weight: 127.1 kg Body Mass Index (BMI) 48.1 Intake and Output for Last 24 Hours 09/19/19 09/20/19 09/21/19 23:59 23:59 23:59 Intake Total 2840.00 / 2840.00 1045 / 1045 Output Total 325 / 325 350 / 350 Balance 2515.00 / 2515.00 695 / 695 General: Alert, Oriented x3, Cooperative HEENT: PERRLA Oral: Moist Mucosa Skin: No rashes Neurological: Cranial nerves II-XII grossly intact Psych/Mental Status: Normal Affect, Alert and oriented to time, place, person, mood and affect Laboratory Results 09/20/19 09:39: POC Glucose 182 H 09/20/19 10:00: WBC 13.0 H, RBC 4.80, Hgb 14.8, Hct 45.6, MCV 95.0 H, MCH 30.8, MCHC 32.5, RDW Std Deviation 48.2 H, RDW Coeff of Miky 13.8, Plt Count 252, MPV 10.5 09/20/19 10:00: Sodium 136, Potassium 4.1, Chloride 100, Carbon Dioxide 31.0, Anion Gap 5, BUN 20 H, Creatinine 1.14, Estim Creat Clear Calc 56.26, Est GFR (MDRD) Af Amer 84, Est GFR (MDRD) Non-Af 69, BUN/Creatinine Ratio 17.5, Glucose 181 H, Calcium 9.4 09/21/19 05:18: WBC 10.4, RBC 4.21 L, Hgb 12.5 L, Hct 40.4, MCV 96.0 H, MCH 29.7, MCHC 30.9 L, RDW Std Deviation 49.2 H, RDW Coeff of Miky 14.0, Plt Count 193, MPV 10.3 09/21/19 05:18: Sodium 132 L, Potassium 3.7, Chloride 98, Carbon Dioxide 29.0, Anion Gap 5, BUN 22 H, Creatinine 0.84, Estim Creat Clear Calc 76.35, Est GFR (MDRD) Af Amer 120, Est GFR (MDRD) Non-Af 99, BUN/Creatinine Ratio 26.3 H, Glucose 147 H, Calcium 8.4 L Current Medications Acetaminophen (Tylenol) 1,000 mg PO Q8 [facility] Last Admin: 09/21/19 05:01 Dose: 1,000 mg Documented by: [facility]) [facility] Last Admin: 09/20/19 17:28 Dose: 325 mg Documented by: Atorvastatin Calcium (Lipitor) 40 mg PO QHS [facility] Last Admin: 09/20/19 22:23 Dose: 40 mg Documented by: Diphenhydramine HCl (Benadryl) 25 mg PO Q6H PRN PRN PRN Reason: ITCHING Hydrochlorothiazide (Hctz) 25 mg PO DAILY [facility] Last Admin: 09/20/19 13:26 Dose: 25 mg Documented by: Latanoprost (Xalatan Opthalmic) [facility] Last Admin: 09/20/19 22:26 Dose: 1 drop Documented by: Metformin HCl (Glucophage) [facility] Multivitamins (Multivitamin) 1 tablet PO DAILY@0800 [facility] Ondansetron HCl (Zofran) 4 mg IV Q8H PRN PRN PRN Reason: NAUSEA Oxycodone HCl (Oxyir) 5 - 10 mg PO Q4H PRN PRN PRN Reason: Pain Score 4-10/10 Last Admin: 09/21/19 07:35 Dose: 5 mg Documented by: Promethazine HCl (Phenergan) 12.5 mg IM Q6H PRN PRN; Protocol PRN Reason: NAUSEA/VOMITING Senna/Docusate Sodium (Senokot-S, Ann-Colace) 2 tablet PO BID [facility] Last Admin: 09/20/19 22:23 Dose: 2 tablet Documented by: Sodium Chloride () 10 - 40 ml IV UD PRN PRN Reason: SALINE FLUSH Last Admin: 09/21/19 04:55 Dose: 10 ml Documented by: Tobramycin Sulfate (Tobrex) 1 drop EACH EYE DAILY [facility] Last Admin: 09/20/19 13:26 Dose: Not Given Documented by: Medical Necessity - Tobacco Use Smoking Status: Never smoker Tobacco Use: Non-smoker Assessment/Plan Status post right total knee arthroplasty Plan 1. Continue all pain medications as prescribed 2. Begin physical therapy weight-bear as tolerated with walker. 3. Aspirin 325 mg 1 p.o. every 12 hours x30 days for postop DVT prophylaxis 4. Encourage incentive spirometry 5. Possible discharge tomorrow to rehab.
[2019-09-21 07:50] VITALS: O2SAT 96
[2019-09-21 08:09] VITALS: BP 144/97; PULSE 90; RESP 18; TEMP 36.5; O2SAT 92
[2019-09-21] MEDS: Aspirin 325 MG Tablet PO ×2 (08:14→18:17)
[2019-09-21] MEDS: metFORMIN HCl 1,000 MG Tablet 1000 MG PO (08:14)
[2019-09-21] MEDS: hydroCHLOROthiazide 25 MG Tablet PO (08:15)
[2019-09-21] MEDS: Multivitamins,Therapeutic Tablet 1 TABLET PO (08:15)
[2019-09-21] MEDS: Senna/Docusate Sodium 1 Tablet 2 TABLET PO ×2 (08:16→21:04)
[2019-09-21 12:05] VITALS: BP 140/70; PULSE 93; RESP 18; TEMP 37.1; O2SAT 96
--- NOTE | 2019-09-21 12:07 | CASEMGMT ---
Addendum entered by Estefania De La Fuente 09/21/19 14:31: SW received call from Bebe at [facility] stating she is able to accept pt and will submit for pre-cert. SW placed a call to pt's daughter Michelle and left her a message that pt has been accepted to [facility] pending pre-cert. Plan: [facility] pending pre-cert. Original Note: Social Work Note Pt's sisters Michelle and Gem present at [facility] and requesting to speak to this worker. SW in to meet with pt and pt's sisters Michelle and Gem. SW provided Gem with list of SNF that accept pt's insurance. SW did discuss RU with pt and pt's family but did inform pt and pt's family that RU is very short term, it is intense (3 hours a day) and this worker would have to call RU to determine if pt meets criteria. Michelle and Gem state they would like pt to be somewhere more than a week or so as they live out of town and pt plans on returning home with their 85 year old father. SW informed Michelle and Gem that this worker can't guarantee if pt will even get approved for RU/SNF and that this worker doesn't know how long pt will be approved for if pt gets approved. SW explained that it all depends on pt's insurance. Gem states that their mother had a bad experience at [facility] TCU so they are not wanting that but do agree to [facility]. SW explained referral process and that pt will need pre-cert. SW asked pt if he is agreeable to W and pt states he is. SW asked about transportation to SNF. SW explained that pt doesn't qualifying for ambulance and W/c van is private pay. Michelle and Gem state that they prefer transportation to be arranged via w/c van. SW informed Michelle and Gem that w/c van can be difficult to schedule and this worker can't guarantee a w/c van will be available to transport pt. Michelle and Gem state that if w/c van is not available they will transport pt to SNF. FUAD placed a call to [facility] and spoke with Bebe. Bebe states she will review referral. FUAD faxed referral. Plan: [facility] pending acceptance and pre-cert Estefania De La Fuente IT TRAINER, FREIGHT LOADER
[2019-09-21] MEDS: Tobramycin Sulf 0.3% 5ML OPTH.BTL 1 DRP EACH EYE (13:23)
[2019-09-21 15:24] VITALS: BP 136/76; PULSE 99; RESP 18; TEMP 36.5; O2SAT 98
[2019-09-21 20:54] VITALS: BP 143/70; PULSE 106; RESP 18; TEMP 37.1; O2SAT 94
[2019-09-21] MEDS: Latanoprost 0.005% 1 Bottle 1 DRP EACH EYE (21:04)
[2019-09-21] MEDS: Atorvastatin Calcium 40 MG Tablet PO (21:04)
[2019-09-22 03:06] VITALS: BP 118/67; PULSE 93; RESP 18; TEMP 36.8; O2SAT 93
[2019-09-22] MEDS: oxyCODONE 5 MG Tablet PO ×3 (03:12→14:56)
[2019-09-22] MEDS: Acetaminophen 500 MG Tablet 1000 MG PO ×2 (06:03→14:55)
[2019-09-22 07:12] VITALS: O2SAT 88
[2019-09-22 07:13] VITALS: O2SAT 93
[2019-09-22] MEDS: Aspirin 325 MG Tablet PO (08:30)
[2019-09-22] MEDS: Multivitamins,Therapeutic Tablet 1 TABLET PO (08:30)
[2019-09-22] MEDS: metFORMIN HCl 1,000 MG Tablet 1000 MG PO (08:30)
[2019-09-22 08:37] VITALS: BP 143/79; PULSE 104; RESP 18; TEMP 36.5; O2SAT 94
[2019-09-22] MEDS: hydroCHLOROthiazide 25 MG Tablet PO (10:01)
[2019-09-22] MEDS: Tobramycin Sulf 0.3% 5ML OPTH.BTL 1 DRP EACH EYE (10:02)
[2019-09-22] MEDS: Senna/Docusate Sodium 1 Tablet 2 TABLET PO (10:02)
--- NOTE | 2019-09-22 10:13 | CASEMGMT ---
Addendum entered by Estefania De La Fuente 09/22/19 15:29: FUAD received call from Silvana at [facility] stating pt will go to their assisted living and do therapy at assisted living as beds are limited on the skilled side. Silvana states she has talked to the family about this and family is agreeable. Silvana states she will need instructions for home and medication list. FUAD placed a call to Librado DOMINGUEZ who spoke with Charge Nurse regarding discharge orders. FUAD faxed completed discharge paperwork to [facility] including transfer to extended care, instructions for home, signed medication list and signed scripts. Original in SNF/RETIREMENT folder and informed Kaitlin that folder will need to go with pt when he discharges to [facility]. Silvana requests that transportation be arranged for around 4:00pm. FUAD placed a call to Serg who states all wheelchair vans have left for the day. SW in to speak with pt and updated pt on [facility]. Pt still agreeable. Pt states his sisters have left and will be back around 5:00pm. FUAD placed a call to pt's sister Gem. FUAD updated Gem that no wheelchair vans are available so family will need to transport pt. Gem states she and Michelle will be at [facility] around 5:00pm to transport pt. FUAD placed a call to Silvana at [facility] and left her a message that discharge paperwork has been faxed and pt's family will be transporting pt at 5:00pm. FUAD updated RN. Addendum entered by Estefania De La Fuente 09/22/19 14:34: FUAD received message from Silvana at [facility] stating pt has been denied SNF. FUAD updated pt's sister Michelle and Gem. FUAD explained that the options are paying privately for SNF, HHC, or outpatient therapy. Michelle and Gem state there is no way that pt is able to discharge home. FUAD explained that this worker can call Silvana at [facility] and have her call one of the sisters to discuss private pay at SNF. Gem states she would like to be called ([phone]). FUAD placed a call to Silvana at [facility] and left her a message that pt will be private pay and asked Silvana to call Gem and then to call this worker once plans have been finalize for private pay at SNF. FUAD did update Silvana that pt is medically cleared for discharge so he will be discharged today to SNF. SW waiting for call back from [facility]. Addendum entered by Estefania De La Fuente 09/22/19 12:29: FUAD faxed updated clinicals to [facility]. FUAD spoke with Librado regarding if pt gets denied SNF if ortho will do peer to peer and ortho will not do peer to peer if pt gets denied SNF. SW waiting for pre-cert. Original Note: Social Work Note FUAD received call from Librado DOMINGUEZ asking for update. FUAD updated Librado that pre-cert is still pending but this worker anticipates pre-cert will be obtained today. FUAD faxed transfer to extended care form to [facility] ([phone]). Plan: [facility] pending pre-cert Estefania De La Fuente MATERIALS TECH, OCCUPATIONAL HEALTH NURSE
--- NOTE | 2019-09-22 11:47 | PN.ORTHO_ITS ---
Subjective: Patient sitting at bedside. Patient denies chest pain, shortness of breath, calf pain, nausea vomiting. Patient has no complaints at this time. States pain is been well managed Objective: Dressing is clean dry intact. Negative signs and symptoms of DVT. Vital signs labs reviewed noted medical record. Neurovascular is otherwise intact, patient is afebrile patient has no respiratory distress. - Physical Exam Vitals/I&O's: Vital Signs Temp Pulse Resp BP Pulse Ox 97.7 F L 104 H 18 143/79 H 94 09/22/19 08:37 09/22/19 08:37 09/22/19 08:37 09/22/19 08:37 09/22/19 08:37 Oxygen Flow Rate (L/min) 1 Oxygen Delivery Method Nasal Cannula Weight: 127.1 kg Body Mass Index (BMI) 48.1 Intake and Output for Last 24 Hours 09/20/19 09/21/19 09/22/19 23:59 23:59 23:59 Intake Total 2840.00 / 2840.00 1495 / 1495 250 / 250 Output Total 325 / 325 750 / 750 1325 / 1325 Balance 2515.00 / 2515.00 745 / 745 -1075 / -1075 General: Alert, Oriented x3, Cooperative HEENT: PERRLA Oral: Moist Mucosa Neurological: Cranial nerves II-XII grossly intact Psych/Mental Status: Normal Affect, Alert and oriented to time, place, person, mood and affect Current Medications Acetaminophen (Tylenol) 1,000 mg PO Q8 [facility] Last Admin: 09/22/19 06:03 Dose: 1,000 mg Documented by: Aspirin (Aspirin) 325 mg PO BIDCM [facility] Last Admin: 09/22/19 08:30 Dose: 325 mg Documented by: Atorvastatin Calcium (Lipitor) 40 mg PO QHS [facility] Last Admin: 09/21/19 21:04 Dose: 40 mg Documented by: Diphenhydramine HCl (Benadryl) 25 mg PO Q6H PRN PRN PRN Reason: ITCHING Hydrochlorothiazide (Hctz) 25 mg PO DAILY [facility] Last Admin: 09/22/19 10:01 Dose: 25 mg Documented by: Latanoprost (Xalatan Opthalmic) 1 drop EACH EYE QHS [facility] Last Admin: 09/21/19 21:04 Dose: 1 drop Documented by: Metformin HCl (Glucophage) 1,000 mg PO DAILYCM [facility] Last Admin: 09/22/19 08:30 Dose: 1,000 mg Documented by: Multivitamins (Multivitamin) 1 tablet PO DAILY@0800 [facility] Last Admin: 09/22/19 08:30 Dose: 1 tablet Documented by: Ondansetron HCl (Zofran) 4 mg IV Q8H PRN PRN PRN Reason: NAUSEA Oxycodone HCl (Oxyir) 5 - 10 mg PO Q4H PRN PRN PRN Reason: Pain Score 4-10/10 Last Admin: 09/22/19 07:23 Dose: 5 mg Documented by: Promethazine HCl (Phenergan) 12.5 mg IM Q6H PRN PRN; Protocol PRN Reason: NAUSEA/VOMITING Senna/Docusate Sodium (Senokot-S, Ann-Colace) 2 tablet PO BID [facility] Last Admin: 09/22/19 10:02 Dose: 1 tablet Documented by: Sodium Chloride () 10 - 40 ml IV UD PRN PRN Reason: SALINE FLUSH Last Admin: 09/21/19 04:55 Dose: 10 ml Documented by: Tobramycin Sulfate (Tobrex) 1 drop EACH EYE DAILY [facility] Last Admin: 09/22/19 10:02 Dose: 1 drop Documented by: Medical Necessity - Tobacco Use Smoking Status: Never smoker Tobacco Use: Non-smoker Assessment/Plan Status post right total knee arthroplasty Plan 1. Continue all pain medications as prescribed 2. Begin physical therapy weight-bear as tolerated with walker. 3. Aspirin 325 mg 1 p.o. every 12 hours x30 days for postop DVT prophylaxis 4. Encourage incentive spirometry 5. Discharge to [facility] AT [facility] today 6. Follow-up as scheduled with Dr. Chua 7. Shower 09/23/2019 8. [place] out 10/01/2019 9. Change dressing to Ag dressing at time of discharge dressing to remain in place until ivon are removed
[2019-09-22 14:59] VITALS: BP 143/65; PULSE 104; RESP 18; TEMP 37.2; O2SAT 94
--- NOTE | 2019-09-22 17:30 | NURSING ---
REPORT CALLED TO WILL OSNG
== END 2019-09-22 16:57 | disposition home or self-care (01) ==
LOC: MS3 15:06 → ACINP 09-21 07:03 → MS3 09-21 07:03
PROVIDERS: Admitting Provider Orthopaedic Surgery; Family Provider Family Medicine; PCP Family Medicine; Referring Provider Orthopaedic Surgery; Visit Provider Orthopaedic Surgery
PROC: (CPT 27447; principal; 2019-09-20 06:50)
DX: M17.11 Unilateral primary osteoarthritis, right knee (principal); I10 Essential (primary) hypertension; E11.9 Type 2 diabetes mellitus without complications; G25.81 Restless legs syndrome; E78.00 Pure hypercholesterolemia, unspecified; Z79.899 Other long term (current) drug therapy; Z79.84 Long term (current) use of oral hypoglycemic drugs; Z79.82 Long term (current) use of aspirin
CPT/HCPCS: 01400; 27447; 64447; 36415; 80048; 82962; 83036; 85025; 85027; 87077; 87081; 88305; 88311; 93005; 96361; 96365; 96366; 97110; 97116; 97161; 97166; 97530; 97535; 99218; 99251; C1776; J7120; A4216; G0378; G0379; G0463

== ENCOUNTER → 2019-09-27 05:00 | Outpatient (REF) | payer OTHER, SELFPAY ==
[2019-09-20 11:19] VITALS: BMI 48.1
[2019-09-27 09:10] LABS: Hemoglobin 12.3 g/dL (13.0-16.5); Mean Corp Hgb Conc 32.4 g/dL (32-36); Mean Corpuscular Hgb 30.5 pg (27.0-32.0); Mean Corpuscular Volume 94.3 fL (80-94); Mean Platelet Vol. 10.5 fl (6.2-12.0); Platelet Count 317 K/mm3 (150-450); RBC Distribution Width CV 14.2 % (11.6-14.6); RBC Distribution Width SD 49.5 fl (35.1-43.9); Red Blood Count 4.03 M/mm3 (4.6-6.2); White Blood Count 11.6 K/mm3 (4.4-11.0)
[2019-09-27 09:32] LABS: Anion Gap 3 (5-15); BUN 18 mg/dL (7-18); BUN/Creat Ratio 24.5 RATIO (10-20); Calcium,Total 9.2 mg/dL (8.5-10.1); Chloride 98 mmol/L (98-107); Creatinine, Serum 0.74 mg/dL (0.70-1.30); EST Glomerular Filtration Rate 115 mL/min (>60); Est Glom Filt Rate - Afr Amer 139 mL/min (>60); Glucose 182 mg/dL (74-106); Potassium 3.7 mmol/L (3.5-5.1); Sodium Level 134 mmol/L (136-145)
== END ==
LOC: OLS.WHLBEN 05:00
PROVIDERS: PCP Family Medicine; Visit Provider Family Medicine
DX: Z47.1 Aftercare following joint replacement surgery (principal); Z96.651 Presence of right artificial knee joint; E78.00 Pure hypercholesterolemia, unspecified; E11.9 Type 2 diabetes mellitus without complications; H40.9 Unspecified glaucoma
CPT/HCPCS: 36415; 80048; 85027

== ENCOUNTER → 2019-10-07 05:00 | Outpatient (REF) | payer OTHER, SELFPAY ==
[2019-09-20 11:19] VITALS: BMI 48.1
[2019-10-07 08:08] LABS: PSA,Total - Annual Screen 0.45 ng/mL (0.00-4.00)
[2019-10-07 08:15] LABS: Color, Urine Yellow (Yellow); Glucose, Dipstick Normal (Normal); Ketone-Dipstick Negative (Negative); Leukocyte Esterase-Dipstick Negative /ul (Negative); Nitrite-Dipstick Negative (Negative); Occult Blood-Urine Negative /ul (Negative); Protein-Dipstick Negative (Negative); Urine Bilirubin Dipstick Negative (Negative); Urine Clarity Clear (Clear); Urine Urobilinogen Normal (Normal); Urine pH 6.5 (5.0 - 8.0)
== END ==
LOC: OLS.WHLBEN 05:00
PROVIDERS: PCP Family Medicine; Visit Provider Family Medicine
DX: N40.0 Benign prostatic hyperplasia without lower urinary tract symptoms (principal); R32 Unspecified urinary incontinence; E78.00 Pure hypercholesterolemia, unspecified; Z47.1 Aftercare following joint replacement surgery; Z96.651 Presence of right artificial knee joint
CPT/HCPCS: 36415; 81002; 84153; 87086; 87088; G0103

== ENCOUNTER → 2019-12-15 | Outpatient (CLI) | payer OTHER, SELFPAY ==
[2019-09-20 11:19] VITALS: BMI 48.1
[2019-12-15 12:16] LABS: Anion Gap 5 (5-15); BUN 18 mg/dL (7-18); BUN/Creat Ratio 20.5 RATIO (10-20); Calcium,Total 9.5 mg/dL (8.5-10.1); Chloride 102 mmol/L (98-107); Creatinine, Serum 0.88 mg/dL (0.70-1.30); EST Glomerular Filtration Rate 93 mL/min (>60); Est Glom Filt Rate - Afr Amer 113 mL/min (>60); Glucose 157 mg/dL (74-106); Potassium 3.7 mmol/L (3.5-5.1); Sodium Level 138 mmol/L (136-145)
== END | disposition home or self-care (01) ==
PROVIDERS: PCP Family Medicine; Referring Provider Family Medicine; Visit Provider Family Medicine
DX: E11.9 Type 2 diabetes mellitus without complications (principal)
CPT/HCPCS: 36415; 80048

== ENCOUNTER → 2020-06-19 | Outpatient (CLI) | payer OTHER, SELFPAY ==
[2019-09-20 11:19] VITALS: BMI 48.1
[2020-06-19 13:21] LABS: AST(SGOT) 23 U/L (15-37); Alanine Aminotransfer ALT/SGPT 26 U/L (16-61); Albumin, Serum 3.4 g/dL (3.2-5.0); Alkaline Phosphatase 108 U/L (45-117); Anion Gap 3 (5-15); BUN 18 mg/dL (7-18); BUN/Creat Ratio 20.5 RATIO (10-20); Bilirubin, Direct 0.14 mg/dL (0.00-0.30); Calcium,Total 9.4 mg/dL (8.5-10.1); Chloride 102 mmol/L (98-107); Cholesterol 131 mg/dL (200); Creatinine, Serum 0.88 mg/dL (0.70-1.30); EST Glomerular Filtration Rate 94 mL/min (>60); Est Glom Filt Rate - Afr Amer 113 mL/min (>60); Globulin 4.5 g/dL (2.2-4.2); Glucose 114 mg/dL (74-106); High Density Lipoprotein 40 mg/dL; Potassium 4.1 mmol/L (3.5-5.1); Protein, Total 7.9 g/dL (6.4-8.2); Sodium Level 139 mmol/L (136-145); Triglycerides 149 mg/dL; Very Low Density Lipoprotein 30 mg/dL (5-40)
[2020-06-19 13:28] LABS: Hemoglobin A1c 7.1 % (3.8-5.6)
== END | disposition home or self-care (01) ==
LOC: MFPLAB 10:47
PROVIDERS: PCP Family Medicine; Visit Provider Family Medicine
DX: E11.9 Type 2 diabetes mellitus without complications (principal)
CPT/HCPCS: 36415; 80048; 80061; 80076; 83036

== ENCOUNTER → 2020-06-20 | Outpatient (CLI) | payer OTHER, SELFPAY ==
[2019-09-20 11:19] VITALS: BMI 48.1
[2020-06-20 16:22] LABS: Microalbumin:Creatinine Ratio 95.7 mg/g CRE (<30 mg/g CRE)
== END | disposition home or self-care (01) ==
LOC: LABSPEC 13:47
PROVIDERS: PCP Family Medicine; Referring Provider Family Medicine; Visit Provider Family Medicine
DX: E11.9 Type 2 diabetes mellitus without complications (principal)
CPT/HCPCS: 82043; 82570

== ENCOUNTER 2020-07-13 13:13 | Observation (INO) | payer OTHER, SELFPAY ==
[2019-09-20 11:19] VITALS: BMI 48.1
[2020-07-12] VITALS (9 sets, daily range): BP systolic 117–159; BP diastolic 74–93; PULSE 87–105; RESP 14–18; TEMP 35.7–36.8; O2SAT 91–96; BMI 48.2
[2020-07-12 08:21] LABS: Bedside Glucose 150 mg/dL (70-110)
[2020-07-12] MEDS: Lactated Ringers 1,000 ML 100 ML IV ×2 (08:22→09:45)
[2020-07-12] MEDS: Cefazolin 2 GM in 0.9% Normal Saline 100 ML IV (08:31)
--- NOTE | 2020-07-12 08:31 | PCM.HP.STD ---
Problem List (1) BPH with obstruction/lower urinary tract symptoms Status: Acute History of Present Illness Date of Admission: 07/12/20 Chief Complaint: BPH with obstruction The patient is a 64 year old male with frequency and urgency urodynamic study was done on his bladder did demonstrate a low capacity bladder but mostly demonstrated obstructive voiding with very high pressures with urination consistent with obstruction. Therefore again to proceed with transurethral resection of the prostate patient and caregiver understand this will relieve the obstruction he may stop some frequency and urgency afterwards but this should settle down with time. Past Medical History Allergies feathers Allergy (Verified 07/03/20 15:18) Other CONGESTION Home Medications: Ambulatory Orders Medication Instructions Recorded Atorvastatin Calcium [Lipitor] 40 mg PO QHS 03/01/19 Hydrochlorothiazide [Hctz] 25 mg PO DAILY 03/01/19 Latanoprost 0.005% [Xalatan 1 drp EACH EYE QHS 03/01/19 Opthalmic] Multivitamin [Daily Multiple 1 ea PO DAILY 03/01/19 Vitamin] Alfuzosin HCl [Uroxatral] 25 mg PO QHS 07/03/20 Aspirin [Aspirin EC] 81 mg PO DAILY 07/03/20 Finasteride [Proscar] 5 mg PO DAILY 07/03/20 Glimepiride [Amaryl] 1 mg PO DAILY 07/03/20 Timolol 0.5% [Timoptic] 1 drp EACH EYE DAILY 07/03/20 traMADol [Ultram (G)] 50 mg PO Q6H PRN PRN 07/03/20 Surgical History: no surgical history Smoking Status: Never smoker Tobacco Use: Non-smoker Review of Systems Constitutional: Denies: Chills, Fever, Weight Change HEENT: Denies: Head Aches, Sinus Congestion, Sinus Drainage Cardiovascular: Denies: Chest Pain, Palpitations Respiratory: Denies: Cough, Shortness of breath at rest, Sputum production Gastrointestinal: Denies: Abdominal Pain, Nausea, Vomiting Genitourinary: Denies: Dysuria Musculoskeletal: Denies: Joint Pain, Joint Tenderness Skin: Denies: Rash, Wounds Neurological: Denies: Numbness, Tingling, Focal weakness Psychiatric: Denies: Anxiety, Depression, Homicidal Ideations, Suicidal Ideations Hematologic/ Lymphatic: Denies: Easy Bruising, Easy Bleeding VTE Information - Inpt Only VTE Present on Admission: No VTE Mechan Device Prophylaxis: SCD's - Physical Exam Vitals/I&O's: Vital Signs Temp Pulse Resp BP Pulse Ox 96.3 F L 103 H 18 159/87 H 91 07/12/20 08:14 07/12/20 08:14 07/12/20 08:14 07/12/20 08:14 07/12/20 08:14 Oxygen Delivery Method Room Air Weight: 127.6 kg Body Mass Index (BMI) 48.2 General: Alert, Oriented x3, Cooperative HEENT: Atraumatic, PERRLA, EOMI, Normocephalic Neck: Supple, No JVD, Negative Carotid Bruits Lungs: Clear to auscultation, Normal air movement Cardiovascular: Regular rate, No murmurs Abdomen: Bowel Sounds Present, Soft, Non Tender Extremities: No edema, Capillary Refill Less than 3 Seconds Skin: No rashes, No breakdown Musculoskeletal: No Tenderness to Palpation of Joints or Extremities Neurological: Cranial nerves II-XII grossly intact Psych/Mental Status: Normal Affect, Appropriate Laboratory Results 07/12/20 08:14: POC Glucose 150 H Current Medications Cefazolin Sodium 2 gm/ Sodium (Chloride) 110 mls @ 150 mls/hr IV PREOP ONE Stop: 07/12/20 08:43 Lactated Ringer's () 1,000 mls @ 100 mls/hr IV .Q10H JENNIFER Last Admin: 07/12/20 08:22 Dose: 100 mls/hr Documented by: Assessment/Plan All Active Problems BPH with obstruction/lower urinary tract symptoms (Acute) Plan to proceed the transurethral resection of the prostate.
--- NOTE | 2020-07-12 08:40 | DCINST_ITS ---
Discharge Diet: Light diet - advance as tolerated, Soft diet Discharge Activity: Return to Normal Activity Call your doctor if your incision/area has: Continuous Slow Oozing, Sudden Increased Bleeding, Increased Pain/ Swelling, Increased Redness, Foul Smelling Discharge, Swelling at the incision site Suture Line Care: Avoid Pulling/Pushing, Avoid Pinching/Bending Instructions: Transurethral Resection of the Prostate (TURP): Home Recovery Allergies/Adverse Reactions: Allergies feathers Allergy (Verified 07/03/20 15:18) Other CONGESTION Medications to take at Discharge Atorvastatin Calcium [Lipitor] 40 mg PO QHS 03/01/19 Hydrochlorothiazide [Hctz] 25 mg PO DAILY 03/01/19 Latanoprost 0.005% [Xalatan Opthalmic] 1 drp EACH EYE QHS 03/01/19 Multivitamin [Daily Multiple Vitamin] 1 ea PO DAILY 03/01/19 Alfuzosin HCl [Uroxatral] 25 mg PO QHS 07/03/20 Aspirin [Aspirin EC] 81 mg PO DAILY 07/03/20 Finasteride [Proscar] 5 mg PO DAILY 07/03/20 Glimepiride [Amaryl] 1 mg PO DAILY 07/03/20 Timolol 0.5% [Timoptic] 1 drp EACH EYE DAILY 07/03/20 traMADol [Ultram (G)] 50 mg PO Q6H PRN PRN 07/03/20 Primary Care Physician: Elena Schwartz MD [Primary Care Provider] - Test Results: Test results from this visit will be discussed in further detail at your follow- up appointment, if applicable. Please Follow Up With: Mehdi Morales MD When: in 2 weeks, please call to make an appointment.
--- NOTE | 2020-07-12 09:20 | OP.PCM_ITS ---
Problem List (1) BPH with obstruction/lower urinary tract symptoms Status: Acute Report of Operation Date of Procedure: 07/12/20 Pre-Operative Diagnosis: BPH with obstruction and frequency urgency Post-Operative Diagnosis: Same Surgery/Procedure Performed:: Transurethral section of the prostate with Olympus button Description of Surgical Findings:: 64-year-old male taken back to the operating room at the smooth induction of general anesthesia the penis and testicles were prepped and draped in usual sterile fashion. He had SCDs on. He was given IV antibiotics before the procedure. Went into the bladder with a 21 Macanese rigid cystourethroscope. The entire length the urethra was normal pendulous urethra was normal the sphincter was intact the verumontanum was identified he then had a small median lobe and had bilateral obstructive tissue but a short length prostate. Prior to the procedure he had urodynamics that demonstrated high-grade obstruction. So today we can proceed with a resection of the prostate I decided to use the button Olympus to vaporize the tissue were worked on the floor the prostate first vaporized the floor and then vaporized the right lobe of the prostate and then vaporized the left lobe the prostate and then worked in the apical tissue the sphincter was intact I then did a flow test had a wide open flow. After vaporizing the tissue in the channel there is good hemostasis I placed a Soriano catheter in the bladder and continuous bladder irrigation anesthetic was reversed and he was taken back to the PACU in good condition at the end of the case of both the left and right ureter orifice were identified and clear of any injury and the sphincter was also intact. Type of Anesthesia:: General Drains: 22fr 3 way - Admit VTE Documentation VTE Present on Admission: No VTE Mechan Device Prophylaxis: SCD's
[2020-07-12 10:11] LABS: Bedside Glucose 140 mg/dL (70-110)
[2020-07-12] MEDS: 0.9% Normal Saline 1,000 ML 75 ML IV (11:33)
[2020-07-12] MEDS: Timolol 0.5% 5ML OPTH.BTL 1 DRP EACH EYE (12:56)
[2020-07-12 13:21] LABS: Bedside Glucose 128 mg/dL (70-110)
[2020-07-12] MEDS: Tamsulosin HCl 0.4 MG Capsule PO (18:33)
[2020-07-12] MEDS: Docusate Sodium 100 MG Capsule PO (20:36)
[2020-07-12] MEDS: Latanoprost 0.005% 1 Bottle 1 DRP EACH EYE (20:36)
[2020-07-12] MEDS: Acetaminophen 325 MG Tablet PO (20:36)
[2020-07-12] MEDS: Atorvastatin Calcium 40 MG Tablet PO (20:36)
[2020-07-12] MEDS: Ciprofloxacin 400 MG/200 ML BAG 200 MG IV (23:01)
[2020-07-12] MEDS: 0.9% Saline Lock 10 ML Syringe IV (23:17)
[2020-07-13] VITALS (14 sets, daily range): BP systolic 105–152; BP diastolic 58–90; PULSE 94–111; RESP 18–20; TEMP 36.4–37; O2SAT 84–98
[2020-07-13] MEDS: 0.9% Normal Saline 1,000 ML 75 ML IV (02:11)
[2020-07-13] MEDS: Acetaminophen 325 MG Tablet PO (02:23)
[2020-07-13] MEDS: BENZOCAINE/MENTHOL 1 LOZENGE MUCOUS MEM (02:24)
[2020-07-13 07:31] LABS: Hematocrit 45.9 % (40-54); Hemoglobin 14.3 g/dL (13.0-16.5); Mean Corp Hgb Conc 31.2 g/dL (32-36); Mean Corpuscular Hgb 29.9 pg (27.0-32.0); Mean Corpuscular Volume 95.8 fL (80-94); Mean Platelet Vol. 10.6 fl (6.2-12.0); Platelet Count 183 K/mm3 (150-450); RBC Distribution Width CV 14.5 % (11.6-14.6); RBC Distribution Width SD 51.8 fl (35.1-43.9); Red Blood Count 4.79 M/mm3 (4.6-6.2); White Blood Count 9.7 K/mm3 (4.4-11.0)
[2020-07-13] MEDS: Multivitamins,Therapeutic Tablet 1 TABLET PO (07:45)
[2020-07-13] MEDS: Glimepiride 1 MG Tablet PO (07:45)
[2020-07-13 07:57] LABS: Anion Gap 4 (5-15); BUN 14 mg/dL (7-18); BUN/Creat Ratio 18.3 RATIO (10-20); Calcium,Total 8.6 mg/dL (8.5-10.1); Chloride 99 mmol/L (98-107); Creatinine, Serum 0.76 mg/dL (0.70-1.30); EST Glomerular Filtration Rate 109 mL/min (>60); Est Glom Filt Rate - Afr Amer 132 mL/min (>60); Estimated Creatinine Clearance 84.39 ml/min; Glucose 144 mg/dL (74-106); Potassium 4.1 mmol/L (3.5-5.1); Sodium Level 138 mmol/L (136-145)
[2020-07-13] MEDS: Ciprofloxacin 400 MG/200 ML BAG 200 MG IV (10:07)
[2020-07-13] MEDS: Docusate Sodium 100 MG Capsule PO ×2 (10:39→21:53)
[2020-07-13] MEDS: hydroCHLOROthiazide 25 MG Tablet PO (10:42)
[2020-07-13] MEDS: Timolol 0.5% 5ML OPTH.BTL 1 DRP EACH EYE (10:42)
[2020-07-13] MEDS: Pantoprazole Sodium 40 MG Tablet PO (10:42)
--- NOTE | 2020-07-13 12:24 | RAD_ITS ---
STUDY: X-RAY CHEST REASON FOR EXAM: Male, 64 years old. Hypoxia, sob TECHNIQUE: PA and lateral views of the chest. COMPARISON: None. FINDINGS: Increased linear markings in the right upper lobe as well as in the left midlung and left lower lobe. Findings suggestive of a atelectasis. There is no demonstrated pleural abnormality. Normal size heart. Normal mediastinum and susi. Normal visualized pulmonary arteries. Normal visualized aortic arch and descending thoracic aorta. There are diffuse degenerative changes of the visualized thoracic spine. Normal visualized ribs, clavicles, and shoulders. There is no demonstrated abnormality of the visualized soft tissue structures of the upper abdomen. RAD/Chest PA and Lateral IMPRESSION: Findings suggestive of linear atelectasis involving the right upper lobe, left midlung and left lower lobe. Electronically Signed: Adam Franklin, at 13:06 EST , Service support ,
[2020-07-13 13:13] LABS: Thyroid Stim Hormone (TSH) 1.09 uIU/mL (0.358-3.74)
--- NOTE | 2020-07-13 13:25 | PCM.PROGNOTE ---
Patient Problems: Active and Suspected Problems BPH with obstruction/lower urinary tract symptoms (Acute) Subjective: Patient seen and examined. Denies cough, fever, chills. Denies shortness of breath. - Physical Exam Vitals/I&O's: Vital Signs Temp Pulse Resp BP Pulse Ox 97.5 F L 98 18 138/90 H 96 07/13/20 13:15 07/13/20 13:15 07/13/20 13:15 07/13/20 13:15 07/13/20 13:15 Oxygen Flow Rate (L/min) [ 2 AMBULATION with Oxygen] Oxygen Flow Rate (L/min) 2 Oxygen Delivery Method Nasal Cannula Weight: 281 lb 4.957 oz Body Mass Index (BMI) 48.2 Intake and Output for Last 24 Hours 07/11/20 07/12/20 07/13/20 23:59 23:59 23:59 Intake Total 426.66 / 426.66 1836.25 / 1836.25 Output Total 3050 / 3050 450 / 450 Balance -2623.34 / -2623.34 1386.25 / 1386.25 General: Alert, Oriented x3, Cooperative HEENT: Atraumatic, PERRLA, EOMI, Normocephalic Neck: Supple, No JVD, Negative Carotid Bruits Lungs: Clear to auscultation, Diminished Cardiovascular: Regular rate, No murmurs Abdomen: Bowel Sounds Present, Soft, Non Tender, Non-Distended, Obese Extremities: No clubbing, No cyanosis, No edema, Capillary Refill Less than 3 Seconds Skin: No rashes, No breakdown Musculoskeletal: No Tenderness to Palpation of Joints or Extremities Neurological: Cranial nerves II-XII grossly intact, Neuro grossly intact Psych/Mental Status: Normal Affect, Appropriate Laboratory Results 07/13/20 07:10: WBC 9.7, RBC 4.79, Hgb 14.3, Hct 45.9, MCV 95.8 H, MCH 29.9, MCHC 31.2 L, RDW Std Deviation 51.8 H, RDW Coeff of Miky 14.5, Plt Count 183, MPV 10.6 07/13/20 07:10: Sodium 138, Potassium 4.1, Chloride 99, Carbon Dioxide 35.0 H, Anion Gap 4 L, BUN 14, Creatinine 0.76, Estim Creat Clear Calc 84.39, Est GFR (MDRD) Af Amer 132, Est GFR (MDRD) Non-Af 109, BUN/Creatinine Ratio 18.3, Glucose 144 H, Calcium 8.6 07/13/20 07:10: TSH 1.09 Current Medications Acetaminophen (Acetaminophen 325 Mg Tablet) 325 mg PO Q4H PRN PRN PRN Reason: Pain Score 1-10 Last Admin: 07/13/20 02:23 Dose: 325 mg Documented by: Al Hydroxide/Mg Hydroxide (Mag Hydrox/Al Hydrox/Simeth 30 Ml Udc) 30 ml PO Q4H PRN PRN PRN Reason: Heartburn Atorvastatin Calcium (Atorvastatin Calcium 40 Mg Tablet) 40 mg PO QHS [facility] Last Admin: 07/12/20 20:36 Dose: 40 mg Documented by: Docusate Sodium (Docusate Sodium 100 Mg Capsule) 100 mg PO BID [facility] Last Admin: 07/13/20 10:39 Dose: 100 mg Documented by: [facility]imepir[facility] ([facility] 1 Mg [facility]t) [facility] Last Admin: 07/13/20 07:45 Dose: 1 mg Documented by: Hydrochlorothiazide (Hydrochlorothiazide 25 Mg Tablet) 25 mg PO DAILY [facility] Last Admin: 07/13/20 10:42 Dose: 25 mg Documented by: Ibuprofen (Ibuprofen 600 Mg Tablet) 600 mg PO Q6H PRN PRN PRN Reason: Pain Score 1-10 Latanoprost (Latanoprost 0.005% 1 Bottle) 1 drop EACH EYE QHS [facility] Last Admin: 07/12/20 20:36 Dose: 1 drop Documented by: Multivitamins (Multivitamins,Therapeutic Tablet) [facility] Last Admin: 07/13/20 07:45 Dose: 1 tablet Documented by: Ondansetron HCl (Ondansetron 4 Mg/2 Ml Vial) 4 mg IV Q6H PRN PRN PRN Reason: Nausea Oxycodone HCl (Oxycodone 5 Mg Tablet) 5 mg PO Q4H PRN PRN PRN Reason: Pain Score 1-10 Pantoprazole Sodium (Pantoprazole Sodium 40 Mg Tablet) 40 mg PO DAILY [facility] Last Admin: 07/13/20 10:42 Dose: 40 mg Documented by: Sodium Chloride (0.9% Saline Lock 10 Ml Syringe) 10 - 40 ml IV UD PRN PRN Reason: SALINE FLUSH Last Admin: 07/12/20 23:17 Dose: 10 ml Documented by: Tamsulosin HCl (Tamsulosin Hcl 0.4 Mg Capsule) 0.4 mg PO DAILY@1730 [facility] Last Admin: 07/12/20 18:33 Dose: 0.4 mg Documented by: Throat Lozenges (Benzocaine/Menthol 1 Lozenge) 1 lozenge MUCOUS MEM Q2H PRN PRN PRN Reason: SORE THROAT Last Admin: 07/13/20 02:24 Dose: 1 lozenge Documented by: Timolol Maleate (Timolol 0.5% 5ml Opth.Btl) 1 drop EACH EYE DAILY [facility] Last Admin: 07/13/20 10:42 Dose: 1 drop Documented by: Tramadol HCl (Tramadol 50 Mg Tablet) 50 mg PO Q6H PRN PRN PRN Reason: Pain 1-10 or Fever Medical Necessity - Tobacco Use Smoking Status: Never smoker Tobacco Use: Non-smoker Assessment/Plan All Active Problems BPH with obstruction/lower urinary tract symptoms (Acute) 1. Postoperative hypoxia-secondary to atelectasis with suspected underlying HONG. Bicarb chronically mildly elevated. Patient obese with thickened neck. Chest x-ray demonstrates atelectasis, no other acute process. Encouraged IS and ambulation. Wean oxygen as tolerated to maintain O2 at above 90%. Recommend outpatient PSG. Walking pulse ox prior to discharge. 2. BPH with obstruction status post TURP 07/12/[address] Morales-management per urology. 3. Hypertension-stable, continue home hydrochlorothiazide. 4. Hyperlipidemia-continue statin. 5. Type 2 diabetes mellitus-on glimepiride. Accu-Cheks with sliding scale insulin. DVT prophylaxis-SCDs This patient was seen by BRIANNA Martinez under the supervision of Dr. Onofre.
[2020-07-13] MEDS: Tamsulosin HCl 0.4 MG Capsule PO (17:10)
[2020-07-13] MEDS: Albuterol 2.5 MG/3 ML VIAL.NEB. INHALATION (19:50)
[2020-07-13] MEDS: traMADol 50 MG Tablet PO (21:53)
[2020-07-13] MEDS: Latanoprost 0.005% 1 Bottle 1 DRP EACH EYE (21:53)
[2020-07-13] MEDS: Atorvastatin Calcium 40 MG Tablet PO (21:54)
[2020-07-14] VITALS (8 sets, daily range): BP systolic 105–161; BP diastolic 54–97; PULSE 76–105; RESP 16–20; TEMP 36.4–37.1; O2SAT 84–97
[2020-07-14] MEDS: Acetaminophen 325 MG Tablet PO ×2 (02:40→12:28)
--- NOTE | 2020-07-14 06:46 | NURSING ---
Pt set off bed exit this am and he was backing out of his bed when we entered the room. Oxygen was off & he was 88% on room air. Pt started urinating on floor and was a little confused. He had also urinated in his bed. Complete bed change done by [employer]. Reoriented after oxygen reapplied at 2L. Now 94%. Bed exit on.
[2020-07-14] MEDS: Albuterol 2.5 MG/3 ML VIAL.NEB. INHALATION (07:24)
[2020-07-14] MEDS: Glimepiride 1 MG Tablet PO (09:27)
[2020-07-14] MEDS: Pantoprazole Sodium 40 MG Tablet PO (09:27)
[2020-07-14] MEDS: Multivitamins,Therapeutic Tablet 1 TABLET PO (09:28)
[2020-07-14] MEDS: Timolol 0.5% 5ML OPTH.BTL 1 DRP EACH EYE (09:28)
[2020-07-14] MEDS: hydroCHLOROthiazide 25 MG Tablet PO (09:28)
[2020-07-14] MEDS: Docusate Sodium 100 MG Capsule PO (09:28)
--- NOTE | 2020-07-14 10:08 | CT_ITS ---
STUDY: CTA CHEST REASON FOR EXAM: Male, 64 years old. HYPOXIA FOLLOWING TURP 07/12. NEG COVID RADIATION DOSAGE (If Supplied By Facility): CTDIvol = ( 16.355 ) mGy, DLP = ( 808.54 ) mGycm TECHNIQUE: The examination was performed with the intravenous administration of IV 100mL Isovue-370. Post-processing of the angiographic images was performed, with multiplanar reformation and 3D reconstruction. Individualized dose optimization techniques were used for this CT. COMPARISON: None. FINDINGS: Normal enhancement of the main pulmonary artery and right and left pulmonary arteries. Normal enhancement of the bilateral peripheral pulmonary arteries. There is no demonstrated pulmonary embolism. Normal thoracic aorta and visualized great vessels. There is no demonstrated aortic dissection. Normal heart and pericardium. There are visualized mediastinal lymph nodes, which are within normal size limits, and with normal morphology. Normal hilar regions. Normal visualized trachea and bronchi. The lungs are well expanded. Mild increased linear markings in the posterior aspect of the right upper lobe suggestive of underlying atelectasis. Mild increased markings in the peripheral aspect of the right upper lobe suggestive of a possible early infiltrate. Mild increased markings are also seen in the right middle lobe as well as in both lower lobes. Differential should include either atelectasis and/or early infiltrate. Normal pleura. Normal chest wall structures. There are degenerative changes of thoracic spine. 4.9 cm cyst in the anterior aspect of the right lobe of the liver. CT/CTA Chest W/WO Contrast IMPRESSION: No evidence of pulmonary embolism. Findings suggestive of a mild atelectasis and/or linear scarring in both lungs as described. No focal consolidation is seen. Electronically Signed: Adam Franklin, at 11:01 EST , Service support ,
--- NOTE | 2020-07-14 11:15 | CASEMGMT ---
RN SHARONA notified that patient qualifies for oxygen. Patient in to discuss oxygen setup and he would like [employer]. Script received and referral made to [employer]. JARETT TABOR arranged for delivery of oxygen prior to patient's discharge.
--- NOTE | 2020-07-14 11:41 | DCINST_ITS ---
- Discharge Diagnoses Current Active Problems: Current Active and Chronic Problems BPH with obstruction/lower urinary tract symptoms (Acute) You will use the following diet at home:: No restrictions Discharge Activity: Return to Normal Activity Call your doctor if your incision/area has: Continuous Slow Oozing, Sudden Increased Bleeding, Increased Pain/ Swelling, Increased Redness, Foul Smelling Discharge, Swelling at the incision site Call your doctor if you observe: Fever of 101 or Higher, Inability to urinate, Shortness of breath, Dizziness, Fainting spells Suture Line Care: Avoid Pulling/Pushing, Avoid Pinching/Bending Instructions: Transurethral Resection of the Prostate (TURP): Home Recovery Allergies/Adverse Reactions: Allergies feathers Allergy (Verified 07/03/20 15:18) Other CONGESTION Medications to take at Discharge Atorvastatin Calcium [Lipitor] 40 mg PO QHS 03/01/19 Hydrochlorothiazide [Hctz] 25 mg PO DAILY 03/01/19 Latanoprost 0.005% [Xalatan Opthalmic] 1 drp EACH EYE QHS 03/01/19 Multivitamin [Daily Multiple Vitamin] 1 ea PO DAILY 03/01/19 Glimepiride [Amaryl] 1 mg PO DAILY 07/03/20 Timolol 0.5% [Timoptic] 1 drp EACH EYE DAILY 07/03/20 traMADol [Ultram] 50 mg PO Q6H PRN PRN 07/03/20 Ciprofloxacin [Cipro] 500 mg PO BID #14 tab 07/12/20 Oxybutynin Chloride [Oxybutynin Chloride ER] 10 mg PO DAILY #30 tab.er.24 07/12/20 The following prescriptions were given: Ciprofloxacin [Cipro] 500 mg PO BID #14 tab Transmission Status: Received by [id number] Oxybutynin Chloride [Oxybutynin Chloride ER] 10 mg PO DAILY #30 tab.er.24 Transmission Status: Received by [id number] Primary Care Physician: Elena Schwartz MD [Primary Care Provider] - Please follow up with your Primary Care Physician in: 1 Week Test Results: Test results from this visit will be discussed in further detail at your follow- up appointment, if applicable. Please Follow Up With: Mehdi Morales MD When: in 2 weeks, please call to make an appointment. Please Follow Up With: Shon Hernandez MD - Pulmonary Medicine When: Please call to schedule patient appt prior to DC Proposed Discharge Date: 07/14/20
--- NOTE | 2020-07-14 12:05 | PCM.DC.SUM ---
Discharge Date and Diagnosis - Problem List Patient Problems: Active and Suspected Problems BPH with obstruction/lower urinary tract symptoms (Acute) Date of Admission: 07/12/20 Date of Discharge: 07/14/20 - Primary Discharge Diagnosis Acute Problems: Active Problems 1. Postoperative hypoxia-secondary to atelectasis with suspected underlying HONG/obesity hypoventilation syndrome. 2. 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 Hypertension 4. Hyperlipidemia 5. Type 2 diabetes mellitus Hospital Course and Treatment Imaging Results: Diagnostic Data Chest X-Ray 07/13/20 12:24 IMPRESSION: Findings suggestive of linear atelectasis involving the right upper lobe, left midlung and left lower lobe. Electronically Signed: Adam Noemi, at 13:06 EST , Service support , Chest CTA 07/14/20 10:08 IMPRESSION: No evidence of pulmonary embolism. Findings suggestive of a mild atelectasis and/or linear scarring in both lungs as described. No focal consolidation is seen. Electronically Signed: Adam Noemi, at 11:01 EST , Service support , Operations: TURP Procedures: None Summary of Care Provided: The patient is a 64 year old M admitted 07/12/2020 due to BPH with obstruction. 1. Postoperative hypoxia-secondary to atelectasis with suspected underlying HONG. Bicarb chronically mildly elevated. Patient obese with thickened neck. Chest x-ray demonstrates atelectasis, no other acute process. Encouraged IS and ambulation. Chest CTA without PE, mild atelectasis and/or linear scarring in both lungs. No focal consolidation. Patient will require continuous supplemental oxygen at discharge. He is ambulatory in the home. Follow-up with pulmonary medicine for further outpatient evaluation, sleep study. Continue supplement oxygen to maintain O2 at or above 90%. 2. BPH with obstruction status post TURP 07/12/[address] MoralesNkhkqi-wbskum-hr with urology in 2 weeks. Cipro and oxybutynin at discharge per urology orders. 3. Hypertension-stable, continue home hydrochlorothiazide. 4. Hyperlipidemia-continue statin. 5. Type 2 diabetes mellitus-on glimepiride. General: Alert, Oriented x3, Cooperative HEENT: Atraumatic, PERRLA, EOMI, Normocephalic Neck: Supple, No JVD, Negative Carotid Bruits Lungs: Clear to auscultation, Diminished Cardiovascular: Regular rate, No murmurs Abdomen: Bowel Sounds Present, Soft, Non Tender, Non-Distended, Obese Extremities: No clubbing, No cyanosis, No edema, Capillary Refill Less than 3 Seconds Skin: No rashes, No breakdown Musculoskeletal: No Tenderness to Palpation of Joints or Extremities Neurological: Cranial nerves II-XII grossly intact, Neuro grossly intact Psych/Mental Status: Normal Affect, Appropriate Patient seen and examined prior to discharge. Physical assessment as noted above. Patient is stable for discharge with follow up recommendations as noted above. This patient was seen by BRIANNA Martinez under the supervision of Dr. Onofre. Patient Problems: Active and Suspected Problems BPH with obstruction/lower urinary tract symptoms (Acute) - Physical Exam Vitals/I&O's: Vital Signs Temp Pulse Resp BP Pulse Ox 98.5 F 105 H 18 134/84 H 97 07/14/20 11:07 07/14/20 11:07 07/14/20 11:07 07/14/20 11:07 07/14/20 11:07 Oxygen Flow Rate (L/min) [ 4 AMBULATION with Oxygen] Oxygen Flow Rate (L/min) 2 Oxygen Delivery Method Nasal Cannula Weight: 281 lb 4.957 oz Body Mass Index (BMI) 48.2 Intake and Output for Last 24 Hours 07/12/20 07/13/20 07/14/20 23:59 23:59 23:59 Intake Total 426.66 / 426.66 3136.25 / 3136.25 Output Total 3050 / 3050 700 / 1300 800 / 800 Balance -2623.34 / -2623.34 2436.25 / 1836.25 -800 / -800 Laboratory Results 07/13/20 07:10: TSH 1.09 Current Medications Acetaminophen (Acetaminophen 325 Mg Tablet) 325 mg PO Q4H PRN PRN PRN Reason: Pain Score 1-10 Last Admin: 07/14/20 02:40 Dose: 325 mg Documented by: Al Hydroxide/Mg Hydroxide (Mag Hydrox/Al Hydrox/Simeth 30 Ml Udc) 30 ml PO Q4H PRN PRN PRN Reason: Heartburn Albuterol Sulfate (Albuterol 2.5 Mg/3 Ml Vial.Neb.) 2.5 mg INHALATION Q6HWA.RT [facility] Last Admin: 07/14/20 07:24 Dose: 2.5 mg Documented by: Atorvastatin Calcium (Atorvastatin Calcium 40 Mg Tablet) 40 mg PO QHS [facility] Last Admin: 07/13/20 21:54 Dose: 40 mg Documented by: Docusate Sodium (Docusate Sodium 100 Mg Capsule) 100 mg PO BID [facility] Last Admin: 07/14/20 09:28 Dose: 100 mg Documented by: [facility]pir[facility] ([facility] 1 Mg [facility]t) [facility] Admin: 07/14/20 09:27 Dose: 1 mg Documented by: Hydrochlorothiazide (Hydrochlorothiazide 25 Mg Tablet) 25 mg PO DAILY [facility] Last Admin: 07/14/20 09:28 Dose: 25 mg Documented by: Ibuprofen (Ibuprofen 600 Mg Tablet) 600 mg PO Q6H PRN PRN PRN Reason: Pain Score 1-10 Latanoprost (Latanoprost 0.005% 1 Bottle) 1 drop EACH EYE QHS [facility] Last Admin: 07/13/20 21:53 Dose: 1 drop Documented by: Multivitamins (Multivitamins,Therapeutic Tablet) [facility] Last Admin: 07/14/20 09:28 Dose: 1 tablet Documented by: Ondansetron HCl (Ondansetron 4 Mg/2 Ml Vial) 4 mg IV Q6H PRN PRN PRN Reason: Nausea Oxycodone HCl (Oxycodone 5 Mg Tablet) 5 mg PO Q4H PRN PRN PRN Reason: Pain Score 1-10 Pantoprazole Sodium (Pantoprazole Sodium 40 Mg Tablet) 40 mg PO DAILY [facility] Last Admin: 07/14/20 09:27 Dose: 40 mg Documented by: Sodium Chloride (0.9% Saline Lock 10 Ml Syringe) 10 - 40 ml IV UD PRN PRN Reason: SALINE FLUSH Last Admin: 07/12/20 23:17 Dose: 10 ml Documented by: Tamsulosin HCl (Tamsulosin Hcl 0.4 Mg Capsule) 0.4 mg PO DAILY@1730 [facility] Last Admin: 07/13/20 17:10 Dose: 0.4 mg Documented by: Throat Lozenges (Benzocaine/Menthol 1 Lozenge) 1 lozenge MUCOUS MEM Q2H PRN PRN PRN Reason: SORE THROAT Last Admin: 07/13/20 02:24 Dose: 1 lozenge Documented by: Timolol Maleate (Timolol 0.5% 5ml Opth.Btl) 1 drop EACH EYE DAILY [facility] Last Admin: 07/14/20 09:28 Dose: 1 drop Documented by: Tramadol HCl (Tramadol 50 Mg Tablet) 50 mg PO Q6H PRN PRN PRN Reason: Pain 1-10 or Fever Last Admin: 07/13/20 21:53 Dose: 50 mg Documented by: Discharge Diet: Light diet - advance as tolerated, Soft diet Discharge Activity: Return to Normal Activity Call your doctor if your incision/area has: Continuous Slow Oozing, Sudden Increased Bleeding, Increased Pain/ Swelling, Increased Redness, Foul Smelling Discharge, Swelling at the incision site Call your doctor if you observe: Fever of 101 or Higher, Inability to urinate, Shortness of breath, Dizziness, Fainting spells Suture Line Care: Avoid Pulling/Pushing, Avoid Pinching/Bending Home Medications: Medications to take at Discharge Atorvastatin Calcium [Lipitor] 40 mg PO QHS 03/01/19 Hydrochlorothiazide [Hctz] 25 mg PO DAILY 03/01/19 Latanoprost 0.005% [Xalatan Opthalmic] 1 drp EACH EYE QHS 03/01/19 Multivitamin [Daily Multiple Vitamin] 1 ea PO DAILY 03/01/19 Glimepiride [Amaryl] 1 mg PO DAILY 07/03/20 Timolol 0.5% [Timoptic] 1 drp EACH EYE DAILY 07/03/20 traMADol [Ultram] 50 mg PO Q6H PRN PRN 07/03/20 Ciprofloxacin [Cipro] 500 mg PO BID #14 tab 07/12/20 Oxybutynin Chloride [Oxybutynin Chloride ER] 10 mg PO DAILY #30 tab.er.24 07/12/20 Following Prescriptions Were Given to Patient: Ciprofloxacin [Cipro] 500 mg PO BID #14 tab Transmission Status: Received by [facility]/pharmacy #[id number] Oxybutynin Chloride [Oxybutynin Chloride ER] 10 mg PO DAILY #30 tab.er.24 Transmission Status: Received by [facility]/pharmacy #[id number] Primary Care Physician: Elena Schwartz MD [Primary Care Provider] - Please follow up with your Primary Care Physician in: 1 Week Please Follow Up With: Mehdi Morales MD When: in 2 weeks, please call to make an appointment. Please Follow Up With: Shon Hernandez MD - Pulmonary Medicine When: Please call to schedule patient appt prior to DC Patient Instructions: Transurethral Resection of the Prostate (TURP): Home Recovery Disposition: Home Minutes spent on discharge:: 35 Patient Condition:: Stable Medical Necessity - Tobacco Use Smoking Status: Never smoker Tobacco Use: Non-smoker Meaningful Use Info Meaningful Use Diagnoses (Choose all that apply): None applicable
--- NOTE | 2020-07-14 14:11 | PCM.PROGNOTE ---
Patient Problems: Active and Suspected Problems BPH with obstruction/lower urinary tract symptoms (Acute) Subjective: Patient seen and examined. Denies shortness of breath. Continues to require supplemental oxygen. - Physical Exam Vitals/I&O's: Vital Signs Temp Pulse Resp BP Pulse Ox 98.5 F 105 H 18 134/84 H 97 07/14/20 11:07 07/14/20 11:07 07/14/20 11:07 07/14/20 11:07 07/14/20 11:07 Oxygen Flow Rate (L/min) [ 4 AMBULATION with Oxygen] Oxygen Flow Rate (L/min) 2 Oxygen Delivery Method Nasal Cannula Weight: 281 lb 4.957 oz Body Mass Index (BMI) 48.2 Intake and Output for Last 24 Hours 07/12/20 07/13/20 07/14/20 23:59 23:59 23:59 Intake Total 426.66 / 426.66 3136.25 / 3136.25 200 / 200 Output Total 3050 / 3050 700 / 1300 1000 / 1000 Balance -2623.34 / -2623.34 2436.25 / 1836.25 -800 / -800 General: Alert, Oriented x3, Cooperative HEENT: Atraumatic, PERRLA, EOMI, Normocephalic Neck: Supple, No JVD, Negative Carotid Bruits Lungs: Clear to auscultation, Diminished Cardiovascular: Regular rate, No murmurs Abdomen: Bowel Sounds Present, Soft, Non Tender, Non-Distended Extremities: No clubbing, No cyanosis, No edema, Capillary Refill Less than 3 Seconds Skin: No rashes, No breakdown Musculoskeletal: No Tenderness to Palpation of Joints or Extremities Neurological: Cranial nerves II-XII grossly intact, Neuro grossly intact Psych/Mental Status: Normal Affect, Appropriate Medical Necessity - Tobacco Use Smoking Status: Never smoker Tobacco Use: Non-smoker Assessment/Plan All Active Problems BPH with obstruction/lower urinary tract symptoms (Acute) 1. Postoperative hypoxia-secondary to atelectasis with suspected underlying HONG. Bicarb chronically mildly elevated. Patient obese with thickened neck. Chest x-ray demonstrates atelectasis, no other acute process. Encouraged IS and ambulation. Chest CTA without PE, mild atelectasis and/or linear scarring in both lungs. No focal consolidation. Patient will require continuous supplemental oxygen at discharge. He is ambulatory in the home. Follow-up with pulmonary medicine for further outpatient evaluation, sleep study. Continue supplement oxygen to maintain O2 at or above 90%. 2. BPH with obstruction status post TURP 07/12/[address] MoralesHeopuj-cqlmiw-mq with urology in 2 weeks. Cipro and oxybutynin at discharge per urology orders. 3. Hypertension-stable, continue home hydrochlorothiazide. 4. Hyperlipidemia-continue statin. 5. Type 2 diabetes mellitus-on glimepiride. Discharge planning: Patient is stable for discharge home per hospitalist standpoint with outpatient follow-up recommendations as noted above. This patient was seen by BRIANNA Martinez under the supervision of Dr. Onofre.
== END 2020-07-14 13:15 | disposition home or self-care (01) ==
LOC: SDC 13:19 → MS3 13:19
PROVIDERS: Anesthesiology; Internal Medicine; Admitting Provider Urology; PCP Family Medicine; Referring Provider Urology; Visit Provider Urology
PROC: (CPT 52601; principal; 2020-07-12 09:45)
DX: N40.1 Benign prostatic hyperplasia with lower urinary tract symptoms (principal); N13.8 Other obstructive and reflux uropathy; Z23 Encounter for immunization; E11.9 Type 2 diabetes mellitus without complications; E78.5 Hyperlipidemia, unspecified; I10 Essential (primary) hypertension; J98.11 Atelectasis; R09.02 Hypoxemia; E66.9 Obesity, unspecified; Z68.42 Body mass index [BMI] 45.0-49.9, adult; N39.41 Urge incontinence; N32.81 Overactive bladder; Z20.828 Contact with and (suspected) exposure to other viral communicable diseases; Z79.899 Other long term (current) drug therapy; Z79.82 Long term (current) use of aspirin; Z79.84 Long term (current) use of oral hypoglycemic drugs
CPT/HCPCS: 00914; 52601; 36415; 71046; 71275; 80048; 82962; 84443; 85027; 87635; 94640; 96361; 96365; 96366; 97802; 99218; C9803; J7030; J7120; Q9967; 90686; A4216; G0378; G0379; J0744; J2405; U0003

== ENCOUNTER → 2020-08-23 14:09 | Outpatient (CLI) | payer OTHER, SELFPAY ==
[2020-07-12 10:54] VITALS: BMI 48.2
--- NOTE | 2020-08-23 14:20 | CT_ITS ---
STUDY: CT BRAIN WITH AND WITHOUT CONTRAST REASON FOR EXAM: Male, 65 years old. Facial weakness. Mouth droop. History of prior skull fracture. RADIATION DOSAGE (If Supplied By Facility): CTDIvol = ( 44.99 ) mGy, DLP = ( 1749.70 ) mGycm TECHNIQUE: Transaxial CT imaging of the brain was performed pre and post contrast administration. The examination was performed with intravenous administration of 50 ml of ISOVUE-370 contrast material. Individualized dose optimization techniques were used for this CT. COMPARISON: None. FINDINGS: There is no acute bleed or infarct. There are normal white matter tracts. There is no abnormal enhancement following contrast administration. There are no intracranial masses identified. The ventricles are normal in configuration. There is no hydrocephalus. There is mucosal hypertrophy in the maxillary sinuses. The visualized paranasal sinuses are otherwise clear. The mastoid air cells are well aerated. There is hyperostosis and thickening of the trabecula in the left temporal bone and skull base. 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 CT/Brain/Head W/WO Contrast IMPRESSION: No acute intracranial abnormality. No abnormal enhancement following contrast administration. Hyperostosis and thickening of the trabecula in the left temporal bone and skull base. 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 If indicated, further evaluation with a temporal bone CT or MRI can be performed. Maxillary sinusitis. Electronically Signed: Philip Medrano, at 15:04 EST Tel , Service support ,
== END ==
PROVIDERS: PCP Family Medicine; Referring Provider Nurse Practitioner Adult Health; Visit Provider Nurse Practitioner Adult Health
DX: R29.810 Facial weakness (principal)
CPT/HCPCS: 70470; Q9967; A4216

== ENCOUNTER → 2020-09-14 12:34 | Outpatient (CLI) | payer OTHER, SELFPAY ==
[2020-08-28 14:15] VITALS: BMI 48.4
[2020-09-14 13:35] VITALS: PULSE 105; PULSE 108; PULSE 126; PULSE 135; PULSE 136; PULSE 138; PULSE 140; PULSE 148; O2SAT 89; O2SAT 91; O2SAT 92; O2SAT 93; O2SAT 94
--- NOTE | 2020-09-14 13:41 | CPS ---
Mr. Roth stopped walking at 146 to 230 then again at 340 to 410 he stated it was a combo of arthritis and SOB that stopped him.
--- NOTE | 2020-09-14 17:11 | PCM.PSN.6M ---
PSN 6 Minute Walk Test - 6 Minute Walk Test 6 Minute Walk Test: 6 Minute Walk Test PSN:6-Minute Walk Test Start: 09/14/20 13:35 Freq: Status: Active Protocol: [id number].6MINW Document 09/14/20 13:35 FR (Rec: 09/14/20 13:42 FR [id number]) 6 Minute Walk Test Date Performed 09/14/20 Time Performed 13:15 Height 5 ft 4 in Weight: 124.738 kg Weight in Pounds 275.[address]: José Manuel Zaldivar Assistive device used: None Pre-test Oxygen Delivery Method Room Air Pulse Ox (%) 92 Pulse Rate (60-100 beats/min) 105 H Dyspnea Rafita Scale (0-10) 3 Exertion Rafita Scale (6-20) 8 1st minute Oxygen Delivery Method Room Air Pulse Ox (%) 94 Pulse Rate (60-100 beats/min) 126 H Number of Rests Taken 1 2nd minute Oxygen Delivery Method Room Air Pulse Ox (%) 89 Pulse Rate (60-100 beats/min) 135 H Reported Symptoms Increased Work of Breathing 3rd minute Oxygen Delivery Method Room Air Pulse Ox (%) 92 Pulse Rate (60-100 beats/min) 138 H Reported Symptoms Increased Work of Breathing 4th minute Oxygen Delivery Method Room Air Pulse Ox (%) 92 Pulse Rate (60-100 beats/min) 136 H Number of Rests Taken 1 Reported Symptoms Increased Work of Breathing 5th minute Oxygen Delivery Method Room Air Pulse Ox (%) 91 Pulse Rate (60-100 beats/min) 140 H Reported Symptoms Increased Work of Breathing 6th minute Oxygen Delivery Method Room Air Pulse Ox (%) 91 Pulse Rate (60-100 beats/min) 148 H Dyspnea Rafita Scale (0-10) 7 Exertion Rafita Scale (6-20) 13 Reported Symptoms Increased Work of Breathing Post-test Oxygen Delivery Method Room Air Pulse Ox (%) 93 Pulse Rate (60-100 beats/min) 108 H Full Laps Walked 11 Partial Lap, Number of Tiles Walked 34 Total Distance Walked (ft) 683 09/14/20 13:41 Cardiopulmonary Services by Yas Magaña Mr. Roth stopped walking at 146 to 230 then again at 340 to 410 he stated it was a combo of arthritis and SOB that stopped him. Initialized on 09/14/20 13:41 - END OF NOTE - Interpretation Interpretation: The patient was able to ambulate 638 feet over the course of 6 minutes on room air with the assistance of 3 breaks. The patient had a lower baseline saturation of 92%, but had a peak heart rate of 148 bpm. These findings are consistent with a cardiovascular limitation exercise tolerance. - Recommendations Recommendations: No supplemental oxygen is indicated at this time. Patient would likely benefit from a cardiovascular evaluation if not completed previously.
== END ==
PROVIDERS: PCP Family Medicine; Referring Provider Internal Medicine Critical Care Medicine; Visit Provider Internal Medicine Critical Care Medicine
DX: J96.11 Chronic respiratory failure with hypoxia (principal)
CPT/HCPCS: 94618

== ENCOUNTER → 2020-10-04 20:20 | Outpatient (CLI) | payer OTHER, SELFPAY ==
[2020-08-28 14:15] VITALS: BMI 48.4
== END ==
PROVIDERS: PCP Family Medicine; Visit Provider Internal Medicine Critical Care Medicine
DX: G47.33 Obstructive sleep apnea (adult) (pediatric) (principal)
CPT/HCPCS: 95811

== ENCOUNTER → 2020-10-06 13:00 | Outpatient (CLI) | payer OTHER, SELFPAY ==
[2020-08-28 14:15] VITALS: BMI 48.4
== END ==
PROVIDERS: PCP Family Medicine; Visit Provider Nurse Practitioner Acute Care
DX: Z46.89 Encounter for fitting and adjustment of other specified devices (principal)

== ENCOUNTER 2021-01-22 09:50 | Day surgery (SDC) | payer OTHER, SELFPAY ==
[2020-10-31 14:01] VITALS: BMI 48.9
[2021-01-22] VITALS (8 sets, daily range): BP systolic 158–183; BP diastolic 81–106; PULSE 99–103; RESP 18–20; TEMP 36.2–36.8; O2SAT 93–96; BMI 49.8
[2021-01-22] MEDS: Lactated Ringers 1,000 ML 100 ML IV (10:38)
[2021-01-22 10:45] LABS: Bedside Glucose 185 mg/dL (70-110)
--- NOTE | 2021-01-22 11:30 | RAD_ITS ---
STUDY: SINGLE INTRAOPERATIVE STUDY REASON FOR EXAM: Male, 65 years old. CAUDAL BLOCK RADIATION DOSAGE (If Supplied By Facility): CTDIvol = ( ) mGy, DLP = ( ) mGycm. Individualized dose optimization techniques were used for this CT.? FLUOROSCOPY TIME (if supplied): ( 08 )seconds TECHNIQUE: Single lateral intraoperative study COMPARISON: None. FINDINGS: Limited single lateral C-arm film performed as the patient has undergone placement of a needle in the distal coccyx for caudal block. RAD/Fluor Guidance for Spine Inj IMPRESSION: No abnormal findings in this limited study performed during caudal block Electronically Signed: Curt Torres MD at 13:16 EDT , Service support ,
[2021-01-22] MEDS: MethylPREDNISolone Acetate 80 MG/ML Vial (11:39)
[2021-01-22] MEDS: 0.9% Normal Saline (Pres. free 10 ML Vial (11:39)
[2021-01-22] MEDS: Bupivacaine 0.25% 30 ML Vial (11:39)
[2021-01-22] MEDS: Lidocaine 1% (5 ml sdv) 5 ML Vial (11:40)
--- NOTE | 2021-01-22 15:44 | OP.PCM_ITS ---
Report of Operation Date of Procedure: 01/22/21 Pre-Operative Diagnosis: Lumbosacral radiculopathy, lumbosacral degenerative di sc disease, lumbosacral spinal stenosis Post-Operative Diagnosis: Lumbosacral radiculopathy, lumbosacral degenerative disc disease, lumbosacral spinal stenosis Surgery/Procedure Performed:: Caudal epidural steroid injection under fluoroscopic guidance Type of Anesthesia: MAC Estimated Blood Loss (mL): Minimal Description of Procedure: DESCRIPTION OF PROCEDURE: History and physical of today was reviewed. Risks and benefits of the procedure were explained. The patient understood and agreed to proceed. Informed consent was obtained. IV inserted per routine protocol. The patient was taken to the operating room and placed in the prone position with a pillow positioned underneath the abdomen. The lower back and tailbone area was prepped and draped in a sterile fashion using iodine x3. Under fluoroscopy guidance on a lateral view, the caudal space was identified. The skin and subcutaneous tissue was anesthetized with approximately 3 mL of 1% lidocaine using a 25-gauge regular needle. Under direct visualization with fluoroscopy, using a 22-gauge 3-1/2-inch spinal needle, the needle was advanced via the skin through the sacral hiatus. The tip of the needle was passed through the sacrococcygeal ligament and advanced to approximately S4 area. After negative aspiration of blood or CSF, a total of 3 mL of contrast was injected to confirm correct placement of the needle as well as cephalad spread. The spread was followed to approximately L5 area. After confirmation on AP as well as lateral view and repeated negative aspiration, a total of 15 mL of preservative-free 0.125% Marcaine with 80 mg of Depo-Medrol was injected easily. The needle was then removed intact. The patient experienced no sign or symptoms of intrathecal or intravascular injection. The patient experienced no paresthesia. The procedure was completed without any apparent difficulty or any complications. The patient appeared to tolerate it well. ASSESSMENT AND PLAN: This is a 65-year-old male with lumbosacral radiculopathy, lumbosacral degenerative disc disease, lumbosacral spinal stenosis status post caudal epidural steroid injection, patient will continue his current medications, patient will follow in approximately 2 weeks for reevaluation. Complications None
== END 2021-01-22 12:50 ==
LOC: SDC 09:50 → AC 09:55
PROVIDERS: PCP Family Medicine; Referring Provider Anesthesiology Pain Medicine; Visit Provider Anesthesiology Pain Medicine
PROC: 3E0S3BZ Introduction of Anesthetic Agent into Epidural Space, Percutaneous Approach (ICD-10-PCS; CPT 62282; principal; 2021-01-22 11:25)
DX: M51.17 Intervertebral disc disorders with radiculopathy, lumbosacral region (principal); M48.07 Spinal stenosis, lumbosacral region; I10 Essential (primary) hypertension; E78.00 Pure hypercholesterolemia, unspecified; E11.9 Type 2 diabetes mellitus without complications; G47.33 Obstructive sleep apnea (adult) (pediatric); Z79.84 Long term (current) use of oral hypoglycemic drugs; Z79.899 Other long term (current) drug therapy
CPT/HCPCS: 01992; 62323; 64520; 64483; 77003; 82962; J7120; J3490

== ENCOUNTER → 2021-01-31 10:05 | Outpatient (CLI) | payer OTHER, SELFPAY ==
[2021-01-29 07:53] VITALS: BMI 49.4
[2021-01-31 12:04] LABS: Absolute Lymphocyte Count 0.91 X10^3/uL (0.83-4.51); Absolute Neutrophil Count 8.9 X10^3/uL (2.0-7.7); Basophil# 0.03 X10^3/uL; Basophil% 0.3 % (0-1); Eosinophil# 0.06 X10^3/uL; Eosinophils% 0.6 % (0-5); Hematocrit 45.1 % (40-54); Hemoglobin 14.9 g/dL (13.0-16.5); Lymphocyte # 0.91 X10^3/ul (0.83-4.51); Lymphocyte % 8.4 % (19-41); Mean Corpuscular Hgb 31.6 pg (27.0-32.0); Mean Corpuscular Volume 95.8 fL (80-94); Mean Platelet Vol. 10.3 fl (6.2-12.0); Monocyte# 0.91 X10^3/uL; Monocyte% 8.4 % (0-10); NRBC Flagged by Analyzer 0 % (0-5); Neutrophil # 8.92 X10^3/uL (2.7-7.7); Neutrophil % 81.7 % (47-70); Platelet Count 265 K/mm3 (150-450); RBC Distribution Width CV 13.7 % (11.6-14.6); RBC Distribution Width SD 48.7 fl (35.1-43.9); Red Blood Count 4.71 M/mm3 (4.6-6.2); White Blood Count 10.9 K/mm3 (4.4-11.0)
[2021-01-31 12:33] LABS: ALB/GLOB Ratio 0.8 RATIO (0.9-2.4); AST(SGOT) 41 U/L (15-37); Alanine Aminotransfer ALT/SGPT 51 U/L (16-61); Albumin, Serum 3.6 g/dL (3.2-5.0); Alkaline Phosphatase 117 U/L (45-117); Anion Gap 7 (5-15); BUN 25 mg/dL (7-18); BUN/Creat Ratio 29.4 RATIO (10-20); Calcium,Total 9.7 mg/dL (8.5-10.1); Chloride 99 mmol/L (98-107); Creatinine, Serum 0.85 mg/dL (0.70-1.30); EST Glomerular Filtration Rate 97 mL/min (>60); Est Glom Filt Rate - Afr Amer 117 mL/min (>60); Globulin 4.8 g/dL (2.2-4.2); Glucose 173 mg/dL (74-106); Potassium 3.9 mmol/L (3.5-5.1); Protein, Total 8.4 g/dL (6.4-8.2); Sodium Level 134 mmol/L (136-145)
== END ==
PROVIDERS: PCP Family Medicine; Referring Provider Family Medicine; Visit Provider Family Medicine
DX: Z01.818 Encounter for other preprocedural examination (principal)
CPT/HCPCS: 36415; 80053; 85025

== ENCOUNTER → 2021-02-12 12:15 | Outpatient (CLI) | payer OTHER, SELFPAY ==
[2021-01-29 07:53] VITALS: BMI 49.4
== END ==
PROVIDERS: PCP Family Medicine; Referring Provider Nurse Practitioner Acute Care; Visit Provider Nurse Practitioner Acute Care
DX: G47.33 Obstructive sleep apnea (adult) (pediatric) (principal)
CPT/HCPCS: 98960; G0463

== ENCOUNTER → 2021-03-14 09:50 | Outpatient (CLI) | payer OTHER, SELFPAY ==
[2021-01-29 07:53] VITALS: BMI 49.4
[2021-03-14 12:28] LABS: Absolute Lymphocyte Count 0.79 X10^3/uL (0.83-4.51); Absolute Neutrophil Count 8.2 X10^3/uL (2.0-7.7); Basophil# 0.02 X10^3/uL; Basophil% 0.2 % (0-1); Hematocrit 44.7 % (40-54); Hemoglobin 14.5 g/dL (13.0-16.5); Lymphocyte # 0.79 X10^3/ul (0.83-4.51); Mean Corp Hgb Conc 32.4 g/dL (32-36); Mean Corpuscular Hgb 30.9 pg (27.0-32.0); Mean Corpuscular Volume 95.3 fL (80-94); Mean Platelet Vol. 10.8 fl (6.2-12.0); Monocyte# 0.73 X10^3/uL; Monocyte% 7.4 % (0-10); NRBC Flagged by Analyzer 0 % (0-5); Neutrophil # 8.24 X10^3/uL (2.7-7.7); Neutrophil % 83.1 % (47-70); Platelet Count 242 K/mm3 (150-450); RBC Distribution Width CV 13.6 % (11.6-14.6); RBC Distribution Width SD 48.1 fl (35.1-43.9); Red Blood Count 4.69 M/mm3 (4.6-6.2); White Blood Count 9.9 K/mm3 (4.4-11.0)
[2021-03-14 12:50] LABS: ALB/GLOB Ratio 0.9 RATIO (0.9-2.4); AST(SGOT) 56 U/L (15-37); Alanine Aminotransfer ALT/SGPT 54 U/L (16-61); Albumin, Serum 3.8 g/dL (3.2-5.0); Alkaline Phosphatase 116 U/L (45-117); Anion Gap 8 (5-15); BUN 19 mg/dL (7-18); Calcium,Total 9.5 mg/dL (8.5-10.1); Chloride 100 mmol/L (98-107); EST Glomerular Filtration Rate 90 mL/min (>60); Est Glom Filt Rate - Afr Amer 109 mL/min (>60); Globulin 4.4 g/dL (2.2-4.2); Glucose 164 mg/dL (74-106); Potassium 4.1 mmol/L (3.5-5.1); Protein, Total 8.2 g/dL (6.4-8.2); Sodium Level 138 mmol/L (136-145)
== END ==
PROVIDERS: PCP Family Medicine; Visit Provider Family Medicine
DX: Z01.818 Encounter for other preprocedural examination (principal)
CPT/HCPCS: 36415; 80053; 85025

== ENCOUNTER 2021-03-26 09:02 | Day surgery (SDC) | payer OTHER, SELFPAY ==
[2021-01-29 07:53] VITALS: BMI 49.4
[2021-03-26 09:37] VITALS: BP 163/86; PULSE 94; RESP 16; TEMP 36.1; O2SAT 95; BMI 49.7
[2021-03-26] MEDS: Lactated Ringers 1,000 ML 100 ML IV ×2 (09:48→12:05)
[2021-03-26 09:55] LABS: Bedside Glucose 181 mg/dL (70-110)
--- NOTE | 2021-03-26 11:41 | RAD_ITS ---
STUDY: X-RAY - LUMBAR SPINE REASON FOR EXAM: Male, 65 years old. TRANSFORAMINAL STEROID INJECTION L3-S1,LEFT TECHNIQUE: 2 view(s) of the lumbar spine were obtained. COMPARISON: None FINDINGS: Intraoperative imaging provided for L3-S1 left transforaminal steroid injection. RAD/Lumbar Spine 2 or 3 Views IMPRESSION: Intraoperative imaging provided for left transforaminal steroid injection from the L3-S1 levels. Electronically Signed: Adam Franklin MD at 15:36 EDT , Service support ,
[2021-03-26] MEDS: Bupivacaine 0.25% 30 ML Vial (11:50)
[2021-03-26] MEDS: Lidocaine 1% (5 ml sdv) 5 ML Vial (11:50)
[2021-03-26] MEDS: MethylPREDNISolone Acetate 80 MG/ML Vial (11:50)
[2021-03-26 12:00] VITALS: BP 135/78; BP 163/86; PULSE 98; RESP 16; TEMP 36.1; O2SAT 91
[2021-03-26 12:05] VITALS: BP 125/63; BP 163/86; PULSE 95; RESP 16; O2SAT 91
[2021-03-26 12:10] VITALS: BP 154/77; BP 163/86; PULSE 91; RESP 16; O2SAT 93
[2021-03-26 12:15] VITALS: BP 148/88; BP 163/86; PULSE 90; PULSE 91; RESP 16; TEMP 36.2; O2SAT 93
[2021-03-26 12:47] VITALS: BP 163/86
--- NOTE | 2021-03-26 17:09 | PCM.OPRPT ---
Report of Operation Date of Procedure: 03/26/21 Description of Surgical Findings:: PREOPERATIVE DIAGNOSES: 1. Lumbosacral radiculopathy. 2. Lumbosacral degenerative disk disease. 3. Lumbosacral spinal stenosis. POSTOPERATIVE DIAGNOSES: 1. Lumbosacral radiculopathy. 2. Lumbosacral degenerative disk disease. 3. Lumbosacral spinal stenosis. PROCEDURE PERFORMED: Left-sided lumbar transforaminal epidural steroid injection, L3-4 and L4-5. ANESTHESIA: MAC. BLOOD LOSS: Minimal. COMPLICATIONS: None. DESCRIPTION OF PROCEDURE: History and physical of today was reviewed. Risks and benefits of the procedure were explained. The patient understood and agreed to proceed. Informed consent was obtained. IV inserted per routine protocol. The patient was taken to the operating room and placed in the prone position with a pillow positioned underneath the abdomen. The left side of his lower back was prepped and draped in a sterile fashion using iodine x3. Under fluoroscopy guidance on oblique view, the L3 through L5 vertebral bodies were visualized. The skin and subcutaneous tissue was anesthetized with approximately 5 mL of 1% lidocaine using a 25-gauge regular needle. Under direct visualization with fluoroscopy at approximately 35-degree angle, starting on the left L3, ending on the left L5, using a 22-gauge 5-inch spinal needle, the needle was advanced via the skin. The tip of the needle was maneuvered and directed towards the inferior and medial gutter of the transverse process at the superiormost aspect of the neural foramen. Once the tip of the needle was at the vicinity of the foramen, after negative aspiration for blood or CSF, a total of 1 mL of contrast was injected in divided doses between both levels to confirm correct placement of the needle as well as medial spread. The confirmation was obtained on AP as well as lateral view. After repeated negative aspiration and confirmation on AP as well as lateral view, a total of 6 mL of preservative-free 0.25% Marcaine with 80 mg of Depo-Medrol was injected in divided doses between both levels. The needles were then removed intact. The patient experienced no sign or symptoms of intrathecal or intravascular injection. The patient experienced no paresthesia. The procedure was completed without any apparent difficulty or any complications. The patient appeared to tolerate it well. ASSESSMENT AND PLAN: This is a 65-year-old male with lumbosacral radiculopathy, lumbosacral degenerative disk disease, and lumbosacral spinal stenosis, status post left_-sided lumbar transforaminal epidural steroid injection at L3-4 and L4-5. The patient will continue his current medications. The patient will follow up in approximately 2 weeks for possible repeat of procedure if indicated
== END 2021-03-26 12:50 | disposition home or self-care (01) ==
LOC: SDC 09:04 → AC 09:34
PROVIDERS: PCP Family Medicine; Referring Provider Anesthesiology Pain Medicine; Visit Provider Anesthesiology Pain Medicine
PROC: 3E0S3BZ Introduction of Anesthetic Agent into Epidural Space, Percutaneous Approach (ICD-10-PCS; CPT 64484; principal; 2021-03-26 10:45)
DX: M51.17 Intervertebral disc disorders with radiculopathy, lumbosacral region (principal); M48.07 Spinal stenosis, lumbosacral region; I10 Essential (primary) hypertension; E78.00 Pure hypercholesterolemia, unspecified; E11.9 Type 2 diabetes mellitus without complications; G47.33 Obstructive sleep apnea (adult) (pediatric); Z79.84 Long term (current) use of oral hypoglycemic drugs; Z79.899 Other long term (current) drug therapy
CPT/HCPCS: 64484; 64483; 72100; 82962; J7120

== ENCOUNTER 2021-06-11 07:04 | Day surgery (SDC) | payer OTHER, SELFPAY ==
--- NOTE | 2021-06-07 13:49 | PCM.HP.BLA ---
History and Physical Date of Admission: 06/11/21 Chief Complaint: Pain in low back,shakira hips and shakira legs. History of Present Illness: This is a 65 Y/O male who was seen and evaluated at our office today as a follow up. Pain: low back,shakira hips,shakira legs (knees down) Quality: constant,varies in intensity Region: Pain in lower back radiates across into the shakira hips and down the legs (from the knees down) into the feet. 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 Review of Systems: Notes occasional headaches and SOB on exertion.Patient denies any recent fever, chills, change in weight without trying, vision or hearing problems. No cp, orthopnea, or peripheral edema.They note no lumps or swollen glands, no new rashes, changing moles, or change in bowel or bladder function. Mood has been good overall. 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 drugs: Denies Allergies: Tylenol, feathers, hay fever Medications: 1) aspirin 325 mg oral tablet, Take 1 tablet by mouth once daily 2) atorvastatin 40 mg oral tablet, Take 1 tablet by mouth once daily 3) glimepiride 1 mg oral tablet, Take 1 tablet by mouth once daily 4) hydroCHLOROthiazide 25 mg oral tablet, Take 1 tablet by mouth once daily 5) latanoprost 0.005% ophthalmic solution, 2 gtts each eye daily 6) Multiple Vitamins oral capsule, Take 1 tablet by mouth once daily 7) Myrbetriq 50 mg oral tablet, extended release, Take 1 tablet by mouth once daily 8) timolol maleate 0.5% ophthalmic solution, daily as directed 9) traMADol 50 mg oral tablet, PRN 10) Tylenol Extra Strength 500 mg oral tablet, prn Physical Examination: Wt: 294 lb Ht/Ln: 64 in BMI: 50.5 BP: 137/85 Pulse: 91 RR: 18 Temp: 96.4F Pain: 5 Well nourished and well developed in no acute distress. Alert and oriented to person, place and time. Affect is normal and appropriate. Mucosa pink and moist. Respirations even and unlabored. Neck is supple without significant lymphadenopathy or thyromegaly. Abdomen soft & non-tender. No HSM or masses appreciated. Extremities show no cyanosis, clubbing, or edema. Gait is Antalgic. Bilateral lumbar facet loading is positive. Lumbar paraspinal muscle tenderness. Lumbar ROM is limited due to pain. Motor and sensory exam is unchanged. Goals: Health Concerns: Assessment & Plan: # Lumbosacral spondylosis (M47.817): # Degeneration of lumbosacral intervertebral disc (M51.37): # Lumbosacral radiculopathy (M54.17): # Arthropathy of lumbar facet (M46.96): # Long-term current use of drug therapy (Z79.899): PRESCRIBE: PT to eval and treat (# Lumbosacral spondylosis (M47.817):# Degeneration of lumbosacral intervertebral disc (M51.37):# Lumbosacral radiculopathy (M54.17):# Arthropathy of lumbar facet (M46.96)) Continue current medication regime. OARRS was reviewed today. Oral testing was reviewed, pt appears compliant SOAPP score is 0 MRI of the lumbar spine was reviewed with the pt today and they appear to understand. There are no signs of diversion or addiction with the pt, there is also no signs of abuse or misuse, continues to do well with their medications without any side effects, we will continue monitoring the pt closely. Reviewed with the pt today our opioid agreement and they appear to understand. PEG was reviewed today. Life style modifications were also discussed today and the pt appears to understand. Weight loss was recommended today through diet and exercise Risks and benefits of the above meds were discussed with the pt and they appear to understand. The common side effects of the medications were discussed and all of their questions and concerns were answered and they appear to understand Discussed natural and expected course of this diagnosis and need to alert me if symptoms do not follow expected course, or if any worse. Pt is to continue with his PT and HEP. Pt has tried multiple modalities with no success, we will schedule the pt for a diagnostic bilateral lumbar medial branch nerve block L4-S1 under fluoroscopy We have discussed the risks, benefits as well as alternatives of the procedure and the patient appears to understand and would like to proceed with the above plan. The above plan was discussed today with the pt in detail and they appear to understand and agrees to continue with the plan.
[2021-06-11] VITALS (7 sets, daily range): BP systolic 137–150; BP diastolic 72–92; PULSE 91–96; RESP 16–18; TEMP 35.9–36.3; O2SAT 93–98; BMI 48.6
[2021-06-11 07:25] LABS: Bedside Glucose 182 mg/dL (70-110)
[2021-06-11] MEDS: Lactated Ringers 1,000 ML 100 ML IV (07:42)
--- NOTE | 2021-06-11 08:40 | RAD_ITS ---
STUDY: X-RAY - LUMBAR SPINE REASON FOR EXAM: Male, 65 years old. MEDIAL BRANCH NERVE BLOCK, L4-S1, BILAT TECHNIQUE: Multiple fluoroscopic views of the lumbar spine COMPARISON: None FINDINGS: Please see the impression. RAD/L/S Spine Min 4 Views IMPRESSION: Multiple fluoroscopic views of the lumbar spine were obtained during nerve block procedure. No radiologist was present in the operating room. Please correlate with the operative report. Fluoroscopic time was 19.9 seconds. Electronically Signed: Jim Park MD at 1:27 EDT Tel , Service support ,
[2021-06-11] MEDS: Lidocaine 1% (30 ml sdv) 30 ML Vial (08:46)
[2021-06-11] MEDS: Bupivacaine 0.25% 30 ML Vial (08:46)
--- NOTE | 2021-06-11 15:43 | OP.PCM_ITS ---
Report of Operation Date of Procedure: 06/11/21 Pre-Operative Diagnosis: Lumbosacral spondylosis, lumbosacral degenerative disc disease, lumbar facet arthropathy Post-Operative Diagnosis: Lumbosacral spondylosis, lumbosacral degenerative disc disease, lumbar facet arthropathy Description of Surgical Findings:: PROCEDURE PERFORMED: Bilateral lumbar medial branch block at L4, L5, and S1. ANESTHESIA: MAC. BLOOD LOSS: Minimal. COMPLICATIONS: None. DESCRIPTION OF PROCEDURE: History and physical of today was reviewed. Risks and benefits of the procedure were explained. The patient understood and agreed to proceed. Informed consent was obtained. IV inserted per routine protocol. The patient was taken to the operating room and placed in the prone position with a pillow positioned underneath the abdomen. The lower back area was prepped and draped in a sterile fashion using iodine x3. Under fluoroscopy guidance on AP view, the L4 through S1 vertebral bodies were visualized. The skin and subcutaneous tissue was anesthetized with approximately 5 mL of 1% lidocaine using a 25-gauge regular needle. Under direct visualization with fluoroscopy, at approximately 25-degree angle, starting on the left L4, ending on the right L4, passing through the L5 and S1 bilaterally, using a 22-gauge 3-1/2-inch spinal needle, the needle was advanced via the skin. The tip of the needle was maneuvered and directed towards the superior medial gutter of the transverse process at the vicinity of the medial branch. Once tip of the needle was in contact with the bone, the needle was pulled approximately 2 mm off the bone. After negative aspiration for blood or CSF and confirmation on AP, oblique as well as lateral view, a total of 12 mL of preservative-free 0.25% Marcaine was injected in divided doses between those six levels. The needles were then removed intact. The patient experienced no sign or symptoms of intrathecal or intravascular injection. The patient experienced no paresthesia. The procedure was completed without any apparent difficulty or any complications. The patient appeared to tolerate it well. ASSESSMENT AND PLAN: This is a 65-year-old male with lumbosacral spondylosis, lumbosacral d egenerative disc disease, lumbar facet arthropathy status post diagnostic bilateral lumbar medial branch block at L4-S1, patient will continue his current medications, patient will follow in approximately 1 week for reevaluation.
== END 2021-06-11 09:45 | disposition home or self-care (01) ==
LOC: SDC 07:05 → AC 07:05
PROVIDERS: PCP Family Medicine; Referring Provider Anesthesiology Pain Medicine; Visit Provider Anesthesiology Pain Medicine
PROC: 3E0S3BZ Introduction of Anesthetic Agent into Epidural Space, Percutaneous Approach (ICD-10-PCS; CPT 62322; principal; 2021-06-11 08:35)
DX: M47.27 Other spondylosis with radiculopathy, lumbosacral region (principal); M51.17 Intervertebral disc disorders with radiculopathy, lumbosacral region; M25.551 Pain in right hip; M25.552 Pain in left hip; E11.40 Type 2 diabetes mellitus with diabetic neuropathy, unspecified; I10 Essential (primary) hypertension; E78.00 Pure hypercholesterolemia, unspecified; M19.90 Unspecified osteoarthritis, unspecified site; G47.33 Obstructive sleep apnea (adult) (pediatric); Z79.82 Long term (current) use of aspirin; Z79.84 Long term (current) use of oral hypoglycemic drugs; Z79.899 Other long term (current) drug therapy; Z90.79 Acquired absence of other genital organ(s); Z96.651 Presence of right artificial knee joint
CPT/HCPCS: 01992; 64493; 64494; 64483; 72110; 82962; J7120

== ENCOUNTER → 2021-06-25 14:59 | Outpatient (CLI) | payer OTHER, SELFPAY ==
[2021-06-25 18:16] LABS: PSA,Total - Annual Screen 0.28 ng/mL (0.00-4.00)
[2021-06-25 18:33] LABS: Hemoglobin A1c 7.8 % (3.8-5.6)
== END ==
PROVIDERS: PCP Family Medicine; Visit Provider Family Medicine
DX: E11.9 Type 2 diabetes mellitus without complications (principal); N40.0 Benign prostatic hyperplasia without lower urinary tract symptoms
CPT/HCPCS: 36415; 83036; 84153; G0103

== ENCOUNTER 2021-07-23 06:25 | Day surgery (SDC) | payer OTHER, SELFPAY ==
[2021-07-23 07:00] VITALS: BP 154/68; PULSE 93; RESP 18; TEMP 36.2; O2SAT 95; BMI 48.4
[2021-07-23] MEDS: Lactated Ringers 1,000 ML 15 ML IV (07:17)
[2021-07-23 07:26] LABS: Bedside Glucose 181 mg/dL (70-110)
--- NOTE | 2021-07-23 08:05 | RAD_ITS ---
PROCEDURE: Bilateral L4-S1 medial branch nerve block. DATE OF EXAMINATION: 07/23/2021. INDICATION: Male, 65 years old. Chronic low back pain. FLUOROSCOPY TIME (if supplied): (9.3 seconds) minutes/seconds. 6 images were obtained. RAD/L/S Spine Min 4 Views IMPRESSION: Intraoperative imaging provided for bilateral L4-S1 medial nerve block. Electronically Signed: Adam Franklin MD at 10:40 EST , Service support ,
[2021-07-23] MEDS: Bupivacaine 0.25% 30 ML Vial (08:06)
[2021-07-23] MEDS: Lidocaine 1% (5 ml sdv) 5 ML Vial (08:06)
[2021-07-23] MEDS: MethylPREDNISolone Acetate 80 MG/ML Vial (08:10)
[2021-07-23 08:15] VITALS: BP 104/60; BP 154/68; PULSE 86; RESP 16; TEMP 36.3; O2SAT 94
[2021-07-23 08:20] VITALS: BP 154/68; BP 96/61; PULSE 84; RESP 16; O2SAT 94
[2021-07-23 08:25] VITALS: BP 110/62; BP 154/68; PULSE 85; RESP 16; O2SAT 97
[2021-07-23 08:30] VITALS: BP 119/67; BP 154/68; PULSE 84; RESP 16; TEMP 36.1; O2SAT 98
[2021-07-23 09:00] VITALS: BP 154/68
--- NOTE | 2021-07-23 12:48 | OP.PCM_ITS ---
Report of Operation Date of Procedure: 07/23/21 Pre-Operative Diagnosis: Lumbosacral spondylosis, lumbosacral degenerative disc disease, lumbar facet arthropathy Post-Operative Diagnosis: Lumbosacral spondylosis, lumbosacral degenerative disc disease, lumbar facet arthropathy Description of Surgical Findings:: PROCEDURE PERFORMED: Bilateral lumbar medial branch injection, L4, L5, and S1. ANESTHESIA: MAC. BLOOD LOSS: Minimal. COMPLICATIONS: None. DESCRIPTION OF PROCEDURE: History and physical of today was reviewed. Risks and benefits of the procedure were explained. The patient understood and agreed to proceed. Informed consent was obtained. IV inserted per routine protocol. The patient was taken to the operating room and placed in the prone position with a pillow positioned underneath the abdomen. The lower back area was prepped and draped in a sterile fashion using iodine x3. Under fluoroscopy guidance on AP view, the L4 through S1 vertebral bodies were visualized. The skin and subcutaneous tissue was anesthetized with approximately 5 mL of 1% lidocaine using a 25-gauge regular needle. Under direct visualization with fluoroscopy, at approximately 25-degree angle, starting on the left L4, ending on the right L4, passing through the L5 and S1 bilaterally, using a 22-gauge 3-1/2-inch spinal needle, the needle was advanced via the skin. The tip of the needle was maneuvered and directed towards the superior medial gutter of the tra nsverse process at the vicinity of the medial branch. Once tip of the needle was in contact with the bone, the needle was pulled approximately 2 mm off the bone. After negative aspiration for blood or CSF and confirmation on AP, oblique as well as lateral view, a total of 12 mL of preservative-free 0.25% Marcaine with 80 mg of Depo-Medrol was injected in divided doses between those six levels. The needles were then removed intact. The patient experienced no sign or symptoms of intrathecal or intravascular injection. The patient experienced no paresthesia. The procedure was completed without any apparent difficulty or any complications. The patient appeared to tolerate it well. ASSESSMENT AND PLAN: This is a 65-year-old male with lumbosacral spondylosis, lumbosacral degenerative disc disease, lumbar facet arthropathy status post bilateral lumbar medial branch injection at L4-S1, patient will continue his current medications, patient will follow in approximately 2 weeks for reevaluation.
== END 2021-07-23 09:00 | disposition home or self-care (01) ==
LOC: SDC 06:25 → AC 06:26
PROVIDERS: PCP Family Medicine; Referring Provider Anesthesiology Pain Medicine; Visit Provider Anesthesiology Pain Medicine
PROC: 3E0T3BZ Introduction of Anesthetic Agent into Peripheral Nerves and Plexi, Percutaneous Approach (ICD-10-PCS; CPT 64484; principal; 2021-07-23 08:00)
DX: M51.17 Intervertebral disc disorders with radiculopathy, lumbosacral region (principal); M47.27 Other spondylosis with radiculopathy, lumbosacral region; M46.96 Unspecified inflammatory spondylopathy, lumbar region; I10 Essential (primary) hypertension; E78.00 Pure hypercholesterolemia, unspecified; E11.9 Type 2 diabetes mellitus without complications; G47.33 Obstructive sleep apnea (adult) (pediatric); Z79.84 Long term (current) use of oral hypoglycemic drugs; Z79.899 Other long term (current) drug therapy
CPT/HCPCS: 64484; 64483; 72110; 82962; J7120

== ENCOUNTER 2021-08-13 05:55 | Day surgery (SDC) | payer OTHER, SELFPAY ==
[2021-08-13] VITALS (7 sets, daily range): BP systolic 124–155; BP diastolic 79–85; PULSE 80–87; RESP 12–16; TEMP 35.7–36.1; O2SAT 90–94; BMI 46.9
[2021-08-13] MEDS: Lactated Ringers 1,000 ML 15 ML IV (06:41)
[2021-08-13 07:26] LABS: Bedside Glucose 167 mg/dL (70-110)
--- NOTE | 2021-08-13 07:32 | RAD_ITS ---
STUDY: X-RAY - LUMBAR SPINE REASON FOR EXAM: Male, 66 years old. RADIO FREQ ABLATION L3-S1,RIGHT TECHNIQUE: 3 view(s) of the lumbar spine were obtained. COMPARISON: None FINDINGS: Intraoperative imaging provided for right L3-S1 radiofrequency ablation. RAD/Lumbar Spine 2 or 3 Views IMPRESSION: Intraoperative images provided for right L3-S1 radiofrequency ablation Electronically Signed: Adam Franklin MD at 13:33 EST , Service support ,
[2021-08-13] MEDS: Bupivacaine 0.25% 30 ML Vial (07:42)
[2021-08-13] MEDS: Lidocaine 1% (30 ml sdv) 30 ML Vial (07:42)
[2021-08-13] MEDS: MethylPREDNISolone Acetate 40 MG/ML Vial IM (07:43)
--- NOTE | 2021-08-13 08:20 | PCM.OPRPT ---
Report of Operation Date of Procedure: 08/13/21 Pre-Operative Diagnosis: Lumbosacral spondylosis, lumbosacral degenerative disc disease, lumbar facet arthropathy Post-Operative Diagnosis: Lumbosacral spondylosis, lumbosacral degenerative disc disease, lumbar facet arthropathy Surgery/Procedure Performed:: Right-sided lumbar radiofrequency ablation of the medial branch L3, L4, L5, S1 Type of Anesthesia: MAC Estimated Blood Loss (mL): Minimal Description of Procedure: History and physical today was reviewed. Risks and benefits of procedure explained. The patient understood, agreed to the procedure and informed consent was obtained. IV inserted per routine protocol. The patient was taken to the operating room, placed in the prone position with a pillow positioned underneath the abdomen. The right side of the lower back was prepped and draped in a sterile fashion using iodine x 3. Under fluoroscopy guidance, on an oblique view, the L3 through S1 vertebral bodies were visualized. The skin and subcutaneous tissue was anesthetized with approximately 10 mL of 1% lidocaine using a 25-gauge regular needle. Under direct visualization with fluoroscopy at approximately 25-degree angle, starting on the right L3, ending on the right S1 passing through the L4-L5 using a 20-gauge 15 cm with a 10 mm curved active tip radiofrequency ablation needle the needle passed through the skin. The tip of the needle was maneuvered and directed towards the superior and medial gutter of the transverse process at the vicinity of the medial branch. Once the tip of the needle was in contact with the bone, the needle pulled approximately 2 mm up the bone. The stylet of each needle was then removed. After negative aspiration of blood with CSF and confirmation of AP as well as oblique view, radiofrequency ablation probe was then inserted at each level. Impedance was then recorded at L3 to be 319, at L4 332, at L5 313, at S1 303 ohm. Motor-evoked potential was then initiated to 1.5 volt without any motor response at each corresponding level. The probe was then removed intact and a total of 6 mL preservative-free 1% lidocaine was injected in divided doses between those 4 levels after negative aspiration of blood with CSF. The radiofrequency ablation probe was then reinserted after confirmation of AP, oblique as well as lateral view. Radiofrequency ablation was then initiated to 80 degrees Celsius for 90 seconds at each level. Once concluded, the probe was then removed intact and a total of 6 mL of preservative-free 0.25% Marcaine with 40 mg Depo-Medrol was injected in divided doses between those 4 levels. The needles were then removed intact. The patient experienced no signs or symptoms of intrathecal, intravascular injection. The patient experienced no paraesthesia. The procedure was completed without any apparent difficulty, any complication. The patient appeared to tolerate well. Sensory as well as motor exam was unchanged from prior to procedure. ASSESSMENT AND PLAN: This is a 66-year-old male with lumbosacral spondylosis, lumbosacral degenerative disc disease, lumbar facet arthropathy, status post right-sided radiofrequency ablation of the medial branch L3 through S1. The patient will continue his current medications. The patient will follow up in approximately 2 weeks for reevaluation. Complications None
== END 2021-08-13 08:42 | disposition home or self-care (01) ==
LOC: SDC 05:58 → AC 05:59
PROVIDERS: PCP Family Medicine; Visit Provider Anesthesiology Pain Medicine
PROC: (CPT 64635; principal; 2021-08-13 07:15)
DX: M51.17 Intervertebral disc disorders with radiculopathy, lumbosacral region (principal); M47.27 Other spondylosis with radiculopathy, lumbosacral region; I10 Essential (primary) hypertension; E78.00 Pure hypercholesterolemia, unspecified; E11.9 Type 2 diabetes mellitus without complications; G47.33 Obstructive sleep apnea (adult) (pediatric); Z79.84 Long term (current) use of oral hypoglycemic drugs; Z79.899 Other long term (current) drug therapy
CPT/HCPCS: 64635; 64636; 72100; 76000; 82962; J7120

== ENCOUNTER 2021-09-10 05:49 | Day surgery (SDC) | payer OTHER, SELFPAY ==
--- NOTE | 2021-09-06 16:52 | PCM.HP.BLA ---
History and Physical Date of Admission: 09/10/21 Chief Complaint: Follow up post bilateral lumbar medial branch block decreased pain by 100% for 12 days History of Present Illness: This is a 66 Y/O male who was seen and evaluated at our office today as a follow up. Pain: low back,shakira hips,shakira legs (knees down) Quality: constant Region: Pain in lower back radiates across into the shakira hips and down the legs (from the knees down) into the feet. Severity: aching,occasional sharp Timing: on & off for a few yrs in low back / arm is recent Aggravated by: nothing specific Relieved by: being active Pain score (out of 10): 3-410 Other info: Patient is here for a follow up post bilateral lumbar medial branch block decreased pain by 100% for 12 days. States pain is gradually coming back. Reports pain in lower, bilateral hips and lower legs. States pain is aching with occasional sharp pain in bilateral feet. States pain is constant but improves as the day goes on. states he has lost 20 pounds or more since he stopped taking tylenol and his pain has improved. he states his pain improves after being active. states he is having surgery on his right eye on 08/14/21, he denies any bowel or bladder changes. Review of Systems: Notes occasional headaches and SOB on exertion.Patient denies any recent fever, chills, change in weight without trying, vision or hearing problems. No cp, orthopnea, or peripheral edema.They note no lumps or swollen glands, no new rashes, changing moles, or change in bowel or bladder function. Mood has been good overall. 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 drugs: Denies Allergies: Tylenol, feathers, hay fever Medications: 1) Aspirin Low Dose 81 mg oral delayed release tablet, Take 1 tablet by mouth once daily 2) atorvastatin 40 mg oral tablet, Take 1 tablet by mouth once daily 3) glimepiride 1 mg oral tablet, Take 1 tablet by mouth once daily 4) hydroCHLOROthiazide 25 mg oral tablet, Take 1 tablet by mouth once daily 5) latanoprost 0.005% ophthalmic solution, 2 gtts each eye daily 6) Multiple Vitamins oral capsule, Take 1 tablet by mouth once daily 7) Myrbetriq 50 mg oral tablet, extended release, Take 1 tablet by mouth once daily 8) PT to eval and treat 9) timolol maleate 0.5% ophthalmic solution, daily as directed Physical Examination: Wt: 276.6 lb Ht/Ln: 64 in BMI: 47.5 BP: 136/58 Pulse: 102 RR: 18 Temp: 96.9F Pain: 4 Well nourished and well developed in no acute distress. Alert and oriented to person, place and time. Affect is normal and appropriate. Mucosa pink and moist. Respirations even and unlabored. Neck is supple without significant lymphadenopathy or thyromegaly. Abdomen soft & non-tender. No HSM or masses appreciated. Extremities show no cyanosis, clubbing, or edema. Gait is Antalgic. Lumbar paraspinal muscle tenderness. Lumbar ROM is limited due to pain. Bilateral lumbar facet loading is positive. SLR is negative. Motor and sensory exam is unchanged. Goals: Health Concerns: Assessment & Plan: # Lumbosacral spondylosis (M47.817): # Degeneration of lumbosacral intervertebral disc (M51.37): # Lumbosacral radiculopathy (M54.17): # Arthropathy of lumbar facet (M46.96): # Long-term current use of drug therapy (Z79.899): Continue current medication regime. OARRS was reviewed today. Oral testing was reviewed, pt appears compliant. SOAPP score is 0 MRI of the lumbar spine was reviewed again with the pt today and they appear to understand. There are no signs of diversion or addiction with the pt, there is also no signs of abuse or misuse, continues to do well with their medications without any side effects, we will continue monitoring the pt closely. Reviewed with the pt today our opioid agreement and they appear to understand. PEG was reviewed today. Life style modifications were also discussed today and the pt appears to understand. Weight loss was recommended today through diet and exercise Risks and benefits of the above meds were discussed with the pt and they appear to understand. The common side effects of the medications were discussed and all of their questions and concerns were answered and they appear to understand Discussed natural and expected course of this diagnosis and need to alert me if symptoms do not follow expected course, or if any worse. Pt is to continue with his HEP. Pt has tried multiple modalities with no success, we will schedule the pt to right sided lumbar RFA L3-S1 followed by the left under fluoroscopy We have discussed the risks, benefits as well as alternatives of the procedure and the patient appears to understand and would like to proceed with the above plan. The above plan was discussed today with the pt in detail and they appear to understand and agrees to continue with the plan.
[2021-09-10 06:26] VITALS: BP 134/81; PULSE 87; RESP 16; TEMP 36.3; O2SAT 94; BMI 46.5
[2021-09-10] MEDS: Lactated Ringers 1,000 ML 15 ML IV (06:35)
--- NOTE | 2021-09-10 07:30 | RAD_ITS ---
PROCEDURE: Left L3-S1 radiofrequency ablation. DATE OF EXAMINATION: 09/10/2021. INDICATION: Male, 66 years old. Chronic low back pain. FLUOROSCOPY TIME (if supplied): (24.5 seconds) minutes/seconds. 9 images were obtained. RAD/L/S Spine Min 4 Views IMPRESSION: Intraoperative imaging provided for left L3-S1 radiofrequency ablation. Electronically Signed: Adam Franklin MD at 13:28 EST , Service support ,
[2021-09-10 07:31] LABS: Bedside Glucose 174 mg/dL (70-110)
[2021-09-10 08:05] VITALS: BP 130/81; BP 134/81; PULSE 91; RESP 16; TEMP 36.2; O2SAT 95
[2021-09-10 08:10] VITALS: BP 124/58; BP 134/81; PULSE 90; RESP 16; O2SAT 92
[2021-09-10 08:15] VITALS: BP 111/57; BP 134/81; PULSE 89; RESP 16; O2SAT 93
[2021-09-10 08:20] VITALS: BP 126/60; BP 134/81; PULSE 89; RESP 18; TEMP 36.1; O2SAT 93
[2021-09-10 08:37] VITALS: BP 134/81
--- NOTE | 2021-09-10 11:05 | PCM.OPRPT ---
Report of Operation Date of Procedure: 09/10/21 Pre-Operative Diagnosis: Lumbosacral spondylosis, lumbosacral degenerative disc disease, lumbar facet arthropathy Post-Operative Diagnosis: Lumbosacral spondylosis, lumbosacral degenerative disc disease, lumbar facet arthropathy Surgery/Procedure Performed:: Left-sided lumbar radiofrequency ablation of the medial branch L3, L4, L5, S1 Type of Anesthesia: MAC Estimated Blood Loss (mL): Minimal Description of Procedure: History and physical today was reviewed. Risks and benefits of procedure explained. The patient understood, agreed to the procedure and informed consent was obtained. IV inserted per routine protocol. The patient was taken to the operating room, placed in the prone position with a pillow positioned underneath the abdomen. The left side of the lower back was prepped and draped in a sterile fashion using iodine x 3. Under fluoroscopy guidance, on an oblique view, the L3 through S1 vertebral bodies were visualized. The skin and subcutaneous tissue was anesthetized with approximately 10 mL of 1% lidocaine using a 25-gauge regular needle. Under direct visualization with fluoroscopy at approximately 25-degree angle, starting on the left L3, ending on the left S1 passing through the L4-L5 using a 20-gauge 15 cm with a 10 mm curved active tip radiofrequency ablation needle the needle passed through the skin. The tip of the needle was maneuvered and directed towards the superior and medial gutter of the transverse process at the vicinity of the medial branch. Once the tip of the needle was in contact with the bone, the needle pulled approximately 2 mm up the bone. The stylet of each needle was then removed. After negative aspiration of blood with CSF and confirmation of AP as well as oblique view, radiofrequency ablation probe was then inserted at each level. Impedance was then recorded at L3 to be 242, at L4 241, at L5 256, at S1 311 ohm. Motor-evoked potential was then initiated to 1.5 volt without any motor response at each corresponding level. The probe was then removed intact and a total of 6 mL preservative-free 1% lidocaine was injected in divided doses between those 4 levels after negative aspiration of blood with CSF. The radiofrequency ablation probe was then reinserted after confirmation of AP, oblique as well as lateral view. Radiofrequency ablation was then initiated to 80 degrees Celsius for 90 seconds at each level. Once concluded, the probe was then removed intact and a total of 6 mL of preservative-free 0.25% Marcaine with 40 mg Depo-Medrol was injected in divided doses between those 4 levels. The needles were then removed intact. The patient experienced no signs or symptoms of intrathecal, intravascular injection. The patient experienced no paraesthesia. The procedure was completed without any apparent difficulty, any complication. The patient appeared to tolerate well. Sensory as well as motor exam was unchanged from prior to procedure. ASSESSMENT AND PLAN: This is a 66-year-old male with lumbosacral spondylosis, lumbosacral degenerative disc disease, lumbar facet arthropathy, status post left-sided lumbar radiofrequency ablation of the medial branch L3 through S1. The patient will continue his current medications. The patient will follow up in approximately 2 weeks for reevaluation. Complications None
== END 2021-09-10 23:59 | disposition home or self-care (01) ==
LOC: SDC 05:51 → AC 05:52
PROVIDERS: PCP Family Medicine; Referring Provider Anesthesiology Pain Medicine; Visit Provider Anesthesiology Pain Medicine
PROC: (CPT 64635; principal; 2021-09-10 07:15)
DX: M47.817 Spondylosis without myelopathy or radiculopathy, lumbosacral region (principal); M46.96 Unspecified inflammatory spondylopathy, lumbar region; E11.40 Type 2 diabetes mellitus with diabetic neuropathy, unspecified; Z79.84 Long term (current) use of oral hypoglycemic drugs; E78.00 Pure hypercholesterolemia, unspecified; I10 Essential (primary) hypertension; M51.37 Other intervertebral disc degeneration, lumbosacral region
CPT/HCPCS: 64635; 64636; 72110; 76000; 82962; J7120

== ENCOUNTER 2021-11-09 14:02 | Observation (INO) | payer OTHER, SELFPAY ==
[2021-11-09] VITALS (10 sets, daily range): BP systolic 113–181; BP diastolic 67–93; PULSE 71–88; RESP 16–18; TEMP 36–36.7; O2SAT 94–98; BMI 47.0; BMI 47.6
--- NOTE | 2021-11-09 15:13 | EKG12_ITS ---
Test Reason : EYE PROBLEM Blood Pressure : / mmHG Vent. Rate : 081 BPM Atrial Rate : 081 BPM P-R Int : 136 ms QRS Dur : 076 ms QT Int : 378 ms P-R-T Axes : 037 014 034 degrees QTc Int : 439 ms Normal sinus rhythm Normal ECG Confirmed by ÁLVARO DE SANTIAGO, SARAH ([id number]), video news editor ANDREW HARVEY ([id number]) on 11/12/2021 10:58:17 AM Referred By: ALBERTO Confirmed By:SARAH REA MD
--- NOTE | 2021-11-09 15:13 | CT_ITS ---
STUDY: CT BRAIN WITHOUT CONTRAST REASON FOR EXAM: Male, 66 years old. Blurred vision TECHNIQUE: Transaxial CT imaging of the brain was performed without administration of intravenous contrast material. Individualized dose optimization techniques were used for this CT. COMPARISON: Aug 23 2020 2:30pm FINDINGS: Normal calvarium. Normal soft tissues. Normal size ventricles and extra-axial spaces for the patient''s age. Normal white matter tracts of the cerebral hemispheres. Normal basal ganglia and thalami. Normal brainstem. Normal cerebellum. There is no intracranial hemorrhage. There are no findings of an acute ischemic infarction. There is hyperostosis and thickening of the trabecula in the left temporal bone and skull base at the level of the mastoid aircells. 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 This is stable. There is sinus disease. ASPECTS 10 CT/Brain/Head without Contrast IMPRESSION: There are no acute intracranial findings. Electronically Signed: Giovany Gonzalez MD at 16:49 EST ,
[2021-11-09 15:19] LABS: Basophil# 0.03 X10^3/uL; Basophil% 0.4 % (0-1); Eosinophil# 0.16 X10^3/uL; Eosinophils% 1.9 % (0-5); Hematocrit 44.5 % (40-54); Hemoglobin 14.9 g/dL (13.0-16.5); Lymphocyte % 8.3 % (19-41); Mean Corp Hgb Conc 33.5 g/dL (32-36); Mean Corpuscular Hgb 31.6 pg (27.0-32.0); Mean Corpuscular Volume 94.3 fL (80-94); Mean Platelet Vol. 10.8 fl (6.2-12.0); Monocyte# 0.54 X10^3/uL; Monocyte% 6.4 % (0-10); NRBC Flagged by Analyzer 0 % (0-5); Neutrophil # 6.98 X10^3/uL (2.7-7.7); Neutrophil % 82.5 % (47-70); Platelet Count 247 K/mm3 (150-450); RBC Distribution Width SD 48.2 fl (35.1-43.9); Red Blood Count 4.72 M/mm3 (4.6-6.2); White Blood Count 8.5 K/mm3 (4.4-11.0)
[2021-11-09 15:42] LABS: Anion Gap 4 (5-15); BUN 16 mg/dL (7-18); BUN/Creat Ratio 16.3 RATIO (10-20); Chloride 101 mmol/L (98-107); Creatinine, Serum 0.98 mg/dL (0.70-1.30); EST Glomerular Filtration Rate 82 mL/min (>60); Est Glom Filt Rate - Afr Amer 99 mL/min (>60); Estimated Creatinine Clearance 63.76 ml/min; Glucose 213 mg/dL (74-106); Potassium 4.1 mmol/L (3.5-5.1); Sodium Level 137 mmol/L (136-145)
--- NOTE | 2021-11-09 16:38 | EDS_ITS ---
HPI <BRIANNA Hayden - Last Filed: 11/09/21 17:11> History of Present Illness Chief Complaint: Eye Problem Narrative Narrative: 66-year-old male with history obesity, hypertension, diabetes hyperlipidemia, Tripathi's palsy, chronic back pain presents the emerge department with 2 days of double vision, slight dizziness that occurred while driving yesterday. Patient states that his left eye is having difficulty tracking, focusing. Patient is right I did have surgery a couple years ago by the [facility], he states that it continues to have drainage, and also has difficulty tracking. Patient denies any extremity weakness. Patient denies any known injury, fever chills nausea vomiting. PFSH <BRIANNA Hayden - Last Filed: 11/09/21 17:11> [facility] Medical History (Updated 11/09/21 @ 23:[address] Raymon Saenz, DO) Back pain BPH with obstruction/lower urinary tract symptoms CPAP (continuous positive airway pressure) dependence Diabetes Diabetes mellitus type 2, controlled DVT (deep venous thrombosis) Edema History of Tripathi's palsy Hypertension Injury of head and neck Non-smoker On home oxygen therapy Pain aggravated by walking Shortness of breath on exertion Sleep apnea Home Medications atorvastatin 40 mg PO QHS 03/01/19 [History Last Taken 11/08/21] hydrochlorothiazide 25 mg PO DAILY 03/01/19 [History Last Taken 11/09/21] latanoprost 1 drp EACH EYE QHS 03/01/19 [History Last Taken 11/08/21] multivitamin 1 ea PO DAILY 03/01/19 [History Last Taken 11/09/21] glimepiride 1 mg PO DAILY 07/03/20 [History Last Taken 11/09/21] timolol maleate 1 drp EACH EYE DAILY 07/03/20 [History Last Taken 11/09/21] aspirin 81 mg tablet,delayed release 81 mg PO DAILY 08/28/20 [History Last Taken 11/09/21] mirabegron [Myrbetriq] 50 mg PO DAILY 01/18/21 [History Last Taken 11/08/21] artificial tears solution 1 - 2 drp OPHTHALMIC (EYE) Q4H PRN PRN 11/09/21 [History Last Taken 11/09/21] gabapentin 300 mg PO DAILY 11/09/21 [History Last Taken 11/09/21] Allergy/AdvReac Type Severity Reaction Status Date / Time feathers Allergy Other Verified 09/04/21 10:37 Family History Mother Diabetes Surgical History History of total knee replacement (TKR) Hx of transurethral resection of prostate Social History Smoking Status: Never smoker ROS <BRIANNA Hayden - Last Filed: 11/09/21 17:11> ROS ED ROS Narrative Constitutional: Negative for fever, chills, weight loss or gain, weakness Eyes: Negative for vision loss. Positive for double vision, vision change, difficulty tracking with the left eye ENT: Negative for any hearing changes, ringing in the ears, dizziness, discharge, pain Nose: Negative for any congestion, runny nose, sinus pain, allergies Throat: Negative for any sore throat hoarseness, voice changes, Cardiovascular: Negative for any chest pain, tightness, palpitations, racing heartbeat Respiratory: Negative for any coughs, sputum production, coughing, hemoptysis, shortness of breath, shortness of breath on exertion, Gastrointestinal: Negative for any abdominal pain, nausea, vomiting, diarrhea, constipation, blood in stool, blood in vomit : Negative for any urinary frequency, incontinence, dysuria, retention, blood in urine Muscle skeletal: Negative for any muscle joint pain, stiffness, myalgias, arthralgias, neck pain, back pain Neurological: Negative for any headache, head injury, syncope, numbness or tingling. Positive for feeling of dizziness Skin: Negative for any rashes, lumps, itching, abrasions, lacerations Psychiatric: Negative for any depression, anxiety, stress, suicidal ideation, homicidal ideation Hematologic: Negative for any easy bruising, excessive bruising, easy bleeding Allergies: Negative for any eczema, hives, rash EXAM <BRIANNA Hayden - Last Filed: 11/09/21 17:11> Physical Exam Const Vital Signs: 11/09/21 14:03 11/09/21 16:34 Temperature 96.8 F L Temperature Source Temporal Pulse Rate 88 79 Respiratory Rate 16 16 Blood Pressure 181/93 H 156/78 H Blood Pressure Mean 122 104 Pulse Ox 97 98 Oxygen Delivery Method Room Air Room Air Positive well nourished, well developed and obese General Appearance ED: well developed Nutritional Appearance: obese HEENT HEENT Narrative: When the patient is tracking my finger, his left eye is delayed, causing a double vision, his physical examination is concerning for a cranial nerve III palsy, patient's right eye does have some drainage, he states this is chronic since the surgery. Negative for any photophobia atraumatic Eyes General Eye ED: Yes normal light reflex Pupil: PERRL EOM: movement deficit Neck no lymphadenopathy and supple Resp normal respiratory effort and clear to auscultation bilaterally Cardio regular rate and regular rhythm GI non-tender and non-distended Auscultation: normoactive bowel sounds Palpation: soft Back/Spine no CVA tenderness Extremity normal to inspection Neuro oriented x3 Sensorium / Orientation: alert Skin Rashes: no rashes [facility] <BRIANNA Hayden - Last Filed: 11/09/21 17:11> [facility] Narrative Medical decision making narrative: Patient appears well, patient appears nontoxic, vital signs are stable. Patient presents the emerge department with double vision, difficulty with the left eye tracking. Patient did receive a full stroke work-up, patient's laboratory studies were unremarkable, patient did have some hyperglycemia. Patient did receive a CT of the brain, this was unremarkable for any acute intracranial process however did show some sinus disease. Due to the patient's past medical history of diabetes, I am concerned for a cranial nerve palsy, patient be diagnosed with cranial nerve #3 palsy concerning for CVA. Patient be admitted to the hospitalist here. He is stable for admission. Lab Data Labs: Laboratory Results - last 24 hr 11/09/21 11/09/21 15:00 15:00 WBC 8.5 RBC 4.72 Hgb 14.9 Hct 44.5 MCV 94.3 H MCH 31.6 MCHC 33.5 RDW Std Deviation 48.2 H RDW Coeff of Miky 14.0 Plt Count 247 MPV 10.8 Immature Gran % (Auto) 0.500 Neut % (Auto) 82.5 H Lymph % (Auto) 8.3 L [place] % (Auto) 6.4 Eos % (Auto) 1.9 Baso % (Auto) 0.4 Absolute Neuts (auto) 7.0 Absolute Lymphs (auto) 0.70 L Nucleated RBC % 0 Sodium 137 Potassium 4.1 Chloride 101 Carbon Dioxide 32.0 Anion Gap 4 L BUN 16 Creatinine 0.98 Estim Creat Clear Calc 63.76 Est GFR (MDRD) Af Amer 99 Est GFR (MDRD) Non-Af 82 BUN/Creatinine Ratio 16.3 Glucose 213 H Calcium 10.0 <Dr. Raymon Saenz, DO - Last Filed: 11/09/21 23:25> [facility] MDM Narrative Medical decision making narrative: Attending note: Patient seen and evaluated occupational safety and health manager. I agree with plan work-up. To perform an [id number] evaluation. Patient reports double vision for the past 2 days worse with 2 eyes open. Denies headache. History of diabetes. No history of strokes. Had right lower lid surgery in the past due to obstruction of vision there is plans for upper lid surgery. Blurry vision. No pain. Exam there is a left cranial nerve III palsy. Double vision improved with coverage of individual eyes. NIH was 0. Stroke work was initiated CT head was negative for intracranial process labs are stable. With new cranial nerve III palsy causing diplopia, discussed with hospitalist for admission for stroke rule out. Discharge Plan Dx/Rx/DC Orders Clinical Impression: 3rd cranial nerve palsy, Diabetes mellitus type 2, controlled, Diplopia Disposition Disposition: Acute Care Hospital [facility] Discharge Date/Time: 11/09/21 17:33
--- NOTE | 2021-11-09 17:51 | HP.PCM.HOS_ITS ---
[facility] - General General Date of Admission: 11/09/21 Date of Service: 11/09/21 Chief Complaint: Diplopia HPI Narrative NEGRA VIVAS, is a 66 M who presents with diplopia. Symptoms began yesterday. Did not improve so he presented to the emergency room. 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 Recently, patient underwent surgery on his eyelids to help close his eyes. 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 He denies any other neurologic complaints such as blurry vision, unilateral weakness paresthesias. He has never had diplopia before. [facility] Medical History Back pain BPH with obstruction/lower urinary tract symptoms CPAP (continuous positive airway pressure) dependence Diabetes mellitus type 2, controlled DVT (deep venous thrombosis) Edema History of Tripathi's palsy Hypertension Injury of head and neck Non-smoker Pain aggravated by walking Shortness of breath on exertion Home Medications atorvastatin 40 mg PO QHS 03/01/19 [History Last Taken 11/08/21] hydrochlorothiazide 25 mg PO DAILY 03/01/19 [History Last Taken 11/09/21] latanoprost 1 drp EACH EYE QHS 03/01/19 [History Last Taken 11/08/21] multivitamin 1 ea PO DAILY 03/01/19 [History Last Taken 11/09/21] glimepiride 1 mg PO DAILY 07/03/20 [History Last Taken 11/09/21] timolol maleate 1 drp EACH EYE DAILY 07/03/20 [History Last Taken 11/09/21] aspirin 81 mg tablet,delayed release 81 mg PO DAILY 08/28/20 [History Last Taken 11/09/21] mirabegron [Myrbetriq] 50 mg PO DAILY 01/18/21 [History Last Taken 11/08/21] artificial tears solution 1 - 2 drp OPHTHALMIC (EYE) Q4H PRN PRN 11/09/21 [History Last Taken 11/09/21] gabapentin 300 mg PO DAILY 11/09/21 [History Last Taken 11/09/21] Allergy/AdvReac Type Severity Reaction Status Date / Time feathers Allergy Other Verified 09/04/21 10:37 Family History Mother Diabetes Surgical History History of total knee replacement (TKR) Hx of transurethral resection of prostate Social History Smoking Status: Never smoker ROS ROS Narrative Patient does have chronic pain and he lies on his back for much of the day. Denies any headache. Denies blurred vision. All review of systems were negativ e except as mentioned above in the history of present illness and the other review of systems. Vital Signs Vital Signs Vital Signs: 11/09/21 14:03 11/09/21 16:34 11/09/21 17:30 Temperature 36.0 C L 36.2 C L Temperature Source Temporal Temporal Pulse Rate 88 79 71 Respiratory Rate 16 16 16 Blood Pressure 181/93 H 156/78 H 148/74 H Blood Pressure Mean 122 104 98 Pulse Ox 97 98 96 Oxygen Delivery Method Room Air Room Air Room Air Weight Weight: 125.9 kg Body Mass Index (BMI) 47.6 Physical Exam Const alert, no apparent distress and average body habitus Constitutional Narrative: Cushingoid appearance General Appearance: cooperative HEENT head/scalp atraumatic and hearing grossly normal bilaterally HEENT Narrative: Ptosis on his right eye. Eyes PERRL Eyes Narrative: Right eye deviated to the right. When looking laterally to the right, his eye is right jumps. Neck no lymphadenopathy Neck Narrative: Does have prominent edema in the back of his neck. Resp normal respiratory effort, no retractions, no use of accessory muscles and clear to auscultation bilaterally Cardio regular rate, regular rhythm, S1 normal heart sound and S2 normal heart sound GI normal to inspection, nondistended, normoactive bowel sounds, soft to palpation, non-tender and non-distended Extremity normal to inspection and full ROM Skin Skin Narrative: Swelling in his upper back though not definitively like a buffalo hump. Does have some mild erythema and centrally has almost some powdery type flaking skin. Neuro moves all extremities and no focal motor deficits Sensorium / Orientation: awake and alert Coordination / Balance: [id number] test normal and [id number] test normal Speech: speech normal Motor Exam: strength 5/5 throughout Psych affect normal Results Lab / Micro Data Attestation: I reviewed the patient's lab results. Result Diagrams: 11/09/21 15:00 11/09/21 15:00 Labs: Laboratory Results - last 24 hr 11/09/21 15:00: WBC 8.5, RBC 4.72, Hgb 14.9, Hct 44.5, MCV 94.3 H, MCH 31.6, MCHC 33.5, RDW Std Deviation 48.2 H, RDW Coeff of Miky 14.0, Plt Count 247, MPV 10.8, Immature Gran % (Auto) 0.500, Neut % (Auto) 82.5 H, Lymph % (Auto) 8.3 L, [place] % (Auto) 6.4, Eos % (Auto) 1.9, Baso % (Auto) 0.4, Absolute Neuts (auto) 7.0, Absolute Lymphs (auto) 0.70 L, Nucleated RBC % 0 11/09/21 15:00: Sodium 137, Potassium 4.1, Chloride 101, Carbon Dioxide 32.0, Anion Gap 4 L, BUN 16, Creatinine 0.98, Estim Creat Clear Calc 63.76, Est GFR (MDRD) Af Amer 99, Est GFR (MDRD) Non-Af 82, BUN/Creatinine Ratio 16.3, Glucose 213 H, Calcium 10.[address] 11/09/21 15:13 IMPRESSION: There are no acute intracranial findings. Electronically Signed: Giovany Gonzalez MD at 16:49 EST Reading Location ID and State: [facility] / [place] , Service support , Assessment & Plan Assessment/Plan (1) 3rd cranial nerve palsy: QUALIFIERS: Laterality: right Qualified Code(s): H49.01 - Third [oculomotor] nerve palsy, right eye (2) Geo disease: PLAN: 1. 3rd cranial nerve palsy Patient with palsy of his right as well as ptosis Need to rule out stroke. Cannot rule out other processes. Patient has recently had some eye surgery and his sister is concerned that he might have some more proptosis on his right. Looks pretty equal to me though there appears to be more in injection in his right cornea compared to his left. Since to be doing a stroke work-up that will entail an MRI of his brain, MRA of his head and neck, 2D echocardiogram, fasting lipid panel, PT and OT evaluate and treat. After results of the echo as well as MRI consult SOC telemetry neurology 2. 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 Being bedbound more by choice rather than his condition. He does not really have any lower extreme edema but is always swelling in his upper back and neck. In is concern for this being cushingoid so we will check her cortisol in the a.m. Additional studies based on those results. 3. Diabetes mellitus type 2 Continue with glimepiride and sliding scale insulin 4. VTE prophylaxis with enoxaparin 5. COVID-19 vaccination status: Patient has been vaccinated for COVID-19. 6. CODE STATUS: Addressed with the patient he wishes to be full code. Discussed with the patient's sister at bedside. She is outside of [place] comes in visit her brother occasionally. She is asking specific questions as to when neurology will be seeing her until her until we knew. I meant the Charges/Coding Visit Charges Inpatient E&M: 75957 Init Hosp L3
--- NOTE | 2021-11-09 18:10 | ECHOCS_ITS ---
Reason For Study: TIA/CVA Procedure This was a 2D Doppler, Color Flow transthoracic echocardiogram. Contrast injection was performed. Exam performed portable in patient room. Left Ventricle Normal LV size. Left ventricular systolic function is normal. The estimated ejection fraction is 65 %. Stage 1 diastolic dysfunction. No regional wall motion abnormalities noted. Right Ventricle Normal RV size. Normal systolic function. Atria Normal left atrium. Normal right atrium. Bubble contrast study negative for right to left interatrial shunt. Mitral Valve Normal mitral valve. Trivial mitral valve insufficiency. Tricuspid Valve The tricuspid valve is not well visualized. Mild to moderate (1-2+) tricuspid valve insufficiency. Pulmonary artery systolic pressure is 41 mmHg. Aortic Valve The aortic valve is not well visualized. Pulmonic Valve The pulmonic valve is not well visualized. Great Vessels Normal aortic root. The pulmonary artery is normal size. Normal inferior vena cava. Pericardium/Pleural No pericardial effusion. Medication Performed a rapid injection of agitated mix of 9 cc saline and 1cc air to assess for atrial septal defect. Diluted definity 2ml given slow IV push to enhance endocardial definition. MMode/2D Measurements & Calculations LVIDd: 4.3 cm IVSd: 1.0 cm Ao root diam: 3.3 cm LVIDs: 2.5 cm LVPWd: 1.3 cm RVDd: 3.0 cm FS: 41.7 % LAV(MOD-bp): 26.3 ml LVAd ap4: 26.1 cm2 SV(MOD-sp4): 41.8 ml LAV(MOD-bp) Indexed: 11.7 ml/m2 LVLd ap4: 7.6 cm LAV(MOD-sp2): 20.8 ml EDV(MOD-sp4): 72.6 ml LAV(MOD-sp4): 32.8 ml EDV(sp4-el): 75.6 ml LVAs ap4: 14.9 cm2 LVLs ap4: 6.3 cm ESV(MOD-sp4): 30.8 ml ESV(sp4-el): 29.8 ml EF(MOD-sp4): 57.6 % EF(sp4-el): 60.6 % SV(sp4-el): 45.8 ml LA A4 area: 15.6 cm2 LA dimension(2D): 4.1 cm RA A4 area: 10.3 cm2 Doppler Measurements & Calculations MV E max miguelangel: 70.2 cm/sec Lat Peak E' Miguelangel: 6.8 cm/sec Med Peak E' Miguelangel: 8.8 cm/sec MV A max miguelangel: 95.9 cm/sec E/E' lat: 10.3 E/E' med: 8.0 MV E/A: 0.73 Ao V2 max: 137.0 cm/sec LV V1 max: 129.5 cm/sec PA V2 max: 85.2 cm/sec Ao max P.5 mmHg LV V1 max P.7 mmHg Ao V2 mean: 100.0 cm/sec Ao mean P.3 mmHg Ao V2 VTI: 28.5 cm TR max miguelangel: 302.0 cm/sec TR max P.5 mmHg ECHO/Echo Complete W/ Contrast Interpretation Summary Normal LV size. Left ventricular systolic function is normal. The estimated ejection fraction is 65 %. Stage 1 diastolic dysfunction. Pulmonary artery systolic pressure is 41 mmHg. Ordering Physician: Harry Elizondo Referring Physician: Elena Schwartz Performed By: Deborah Rodgers, DARA, RVT
[2021-11-09 18:47] LABS: Troponin-I HS 6 pg/mL (3.0-78.0)
[2021-11-09] MEDS: Glycerin/Hypromellose/PEG400 15 ml Bottle RIGHT EYE (22:13)
[2021-11-09] MEDS: Latanoprost 0.005% 1 Bottle 1 DRP EACH EYE (22:13)
[2021-11-09] MEDS: Atorvastatin Calcium 40 MG Tablet PO (22:14)
[2021-11-09] MEDS: 0.9% Saline Lock 10 ML Syringe IV (22:15)
[2021-11-09 22:36] LABS: Bedside Glucose 130 mg/dL (74-106)
[2021-11-10] VITALS (12 sets, daily range): BP systolic 109–137; BP diastolic 59–79; PULSE 78–95; RESP 16–18; TEMP 36.4–36.9; O2SAT 92–99; BMI 47.6
[2021-11-10] MEDS: Glycerin/Hypromellose/PEG400 15 ml Bottle RIGHT EYE (04:08)
[2021-11-10] MEDS: Insulin Lispro 100 UNIT/ML INSULN.PEN SC ×2 (06:38→11:01)
[2021-11-10 07:01] LABS: Bedside Glucose 206 mg/dL (74-106)
[2021-11-10 07:27] LABS: Cholesterol 118 mg/dL (200); High Density Lipoprotein 31 mg/dL; Thyroid Stim Hormone (TSH) 2.58 uIU/mL (0.358-3.74); Triglycerides 130 mg/dL; Very Low Density Lipoprotein 26 mg/dL (5-40)
[2021-11-10 07:51] LABS: Hemoglobin A1c 7.3 % (3.8-5.6)
--- NOTE | 2021-11-10 08:30 | MRI_ITS ---
STUDY: MRA OF THE HEAD WITHOUT CONTRAST REASON FOR EXAM: Male, 66 years old. diplopia. CN III palsy TECHNIQUE: 3-D [id number] (TOF) imaging was performed with MIPs. The study was performed unenhanced. COMPARISON: None. FINDINGS: Normal bilateral petrous carotid arteries. Normal right cavernous carotid artery with a normal supraclinoid bifurcation. Normal left cavernous carotid artery with a normal supraclinoid bifurcation. Normal right A1 segments of the anterior cerebral artery. Normal left A1 segments of the anterior cerebral artery. Normal intact anterior communicating artery (ACOM). Normal bilateral A2 segments of the anterior cerebral arteries. Normal right M1 and M2 segments of the middle cerebral arteries, with a normal M1 bifurcation. Normal left M1 and M2 segments of the middle cerebral arteries, with a normal M1 bifurcation. Normal right posterior communicating artery (PCOM). There is a persistent origin of the left posterior cerebral artery with absence of the P1 segment of the left posterior cerebral artery. Normal right vertebral artery. Nonvisualization left vertebral artery worrisome for occlusion. Oormal basilar artery with a normal basilar bifurcation. The visualized bilateral superior cerebellar (SCA) arteries are normal. Normal bilateral P1, P2 and visualized P3 segments of the posterior cerebral arteries. There is no demonstrated aneurysm of the [place]. There is no major vessel occlusion or hemodynamically significant stenosis. There is no demonstrated abnormality of the visualized brain. MRI/MRA Head ONLY without Contrast IMPRESSION: Normal MRA of the head. 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 Electronically Signed: Torres Arechiga MD at 10:50 EST ,
--- NOTE | 2021-11-10 08:30 | MRI_ITS ---
STUDY: MRI BRAIN WITHOUT CONTRAST REASON FOR EXAM: Male, 66 years old. diplopia. CN III palsy TECHNIQUE: Standardized multiplanar fat and water weighted pulse sequences were obtained. COMPARISON: CT 11/09/2021 FINDINGS: Normal size of the ventricles and extra-axial spaces for the patient''s age. Normal white matter tracts of the supratentorial brain. There is no evidence for recent intracranial ischemia or other cause of cytotoxic edema on diffusion weighted imaging (DWI). Normal T2* images of the brain without demonstrated susceptibility artifact. There is no demonstrated hemosiderin stain. Normal bilateral basal ganglia. Normal thalami. There is no extra-axial fluid accumulation. Normal flow voids within the major intracranial circulation suggesting patency by spin echo criteria. Normal sella turcica, pituitary gland, infundibular stalk, optic chiasm and hypothalamus. Normal tectal plate and pineal gland. Normal midbrain, arron and medulla. Normal cerebellum. Normal basal cisterns. Normal bilateral temporal bones. Normal bilateral internal auditory canals. No demonstrated orbital abnormality, within the constraints of a routine brain study. Normal visualized paranasal sinuses. Marrow replacing lesion of the clivus which can be seen in metastatic disease. Correlation with bone scan may be useful. Normal visualized soft tissue structures. Normal visualized upper cervical spine. MRI/Brain without Contrast IMPRESSION: Normal unenhanced MRI of the brain. Marrow replacing lesion of the clivus worrisome for metastatic disease and correlation with bone scan would be useful. Electronically Signed: Torres Arechiga MD at 10:54 EST ,
[2021-11-10] MEDS: Timolol 0.5% 5ML OPTH.BTL 1 DRP EACH EYE (10:10)
[2021-11-10] MEDS: Mirabegron 50 MG TAB.ER.24H PO (10:10)
[2021-11-10] MEDS: Multivitamins,Therapeutic Tablet 1 TABLET PO (10:10)
[2021-11-10] MEDS: hydroCHLOROthiazide 25 MG Tablet PO (10:10)
[2021-11-10] MEDS: Enoxaparin 40 MG/0.4 ML Syringe SC (10:10)
[2021-11-10] MEDS: Glimepiride 1 MG Tablet PO (10:10)
[2021-11-10] MEDS: Gabapentin 300 MG Capsule PO (10:10)
[2021-11-10] MEDS: Aspirin E.C. 81 MG Tablet PO (10:10)
[2021-11-10] MEDS: 0.9% Saline Lock 10 ML Syringe IV (10:15)
--- NOTE | 2021-11-10 11:14 | CASEMGMT ---
JARETT TABOR in to pt room, pt lying in bed in no distress. Pt reports he was I at home but just having issues with double vision. Pt does not feel he needs any services post hospital stay. JARETT TABOR to follow.
--- NOTE | 2021-11-10 12:03 | TELEMED_ITS ---
SOC Telemed has confirmed receipt of a request for visit. This document confirms receipt of the order initiating the consult. To find the results of the consultation, please view the patient's reports for the scanned Telemed Consult.
[2021-11-10 12:10] LABS: Bedside Glucose 227 mg/dL (74-106)
[2021-11-10 12:10] LABS: Bedside Glucose 249 mg/dL (74-106)
--- NOTE | 2021-11-10 14:30 | PCM.PN.HOSP ---
Documented by User: Los DOMINGUEZ 11/10/21 16:03 Subjective Subjective Patient is a 66-year-old male lying in bed, alert and oriented 3. Patient still with ongoing ptosis and diplopia, denies development of any new symptoms overnight. Objective Data Objective Data Vital Signs: Vital Signs Temp Pulse Resp BP Pulse Ox 97.7 F L 90 16 137/79 H 95 11/10/21 10:16 11/10/21 10:16 11/10/21 10:16 11/10/21 10:16 11/10/21 10:16 Oxygen Flow Rate (L/min) 2 Oxygen Delivery Method Room Air Weight: 277 lb 8.992 oz Body Mass Index (BMI) 47.6 Intake & Output: Intake and Output for Last 24 Hours 11/08/21 11/09/21 11/10/21 23:59 23:59 23:59 Intake Total 120 / 120 500 / 500 Output Total / Balance 120 / 120 499 / 499 Lab / Micro Data Result Diagrams: 11/09/21 15:00 11/09/21 15:00 Labs: Laboratory Results - last 24 hr 11/09/21 15:00: WBC 8.5, RBC 4.72, Hgb 14.9, Hct 44.5, MCV 94.3 H, MCH 31.6, MCHC 33.5, RDW Std Deviation 48.2 H, RDW Coeff of Miky 14.0, Plt Count 247, MPV 10.8, Immature Gran % (Auto) 0.500, Neut % (Auto) 82.5 H, Lymph % (Auto) 8.3 L, [place] % (Auto) 6.4, Eos % (Auto) 1.9, Baso % (Auto) 0.4, Absolute Neuts (auto) 7.0, Absolute Lymphs (auto) 0.70 L, Nucleated RBC % 0 11/09/21 15:00: Sodium 137, Potassium 4.1, Chloride 101, Carbon Dioxide 32.0, Anion Gap 4 L, BUN 16, Creatinine 0.98, Estim Creat Clear Calc 63.76, Est GFR (MDRD) Af Amer 99, Est GFR (MDRD) Non-Af 82, BUN/Creatinine Ratio 16.3, Glucose 213 H, Calcium 10.0 11/09/21 18:07: Troponin I High Sens 6 11/09/21 22:12: POC Glucose 130 H 11/10/21 06:14: Hemoglobin A1c 7.3 H 11/10/21 06:14: Triglycerides 130, Cholesterol 118, LDL Cholesterol 61, VLDL Cholesterol 26, HDL Cholesterol 31 L, TSH 2.58 11/10/21 06:33: POC Glucose 206 H 11/10/21 11:00: POC Glucose 249 H 11/10/21 12:04: POC Glucose 227 H Radiography Diagnostic Testing: Radiology Impression Brain CT 11/09/21 15:13 IMPRESSION: There are no acute intracranial findings. Electronically Signed: Giovany Gonzalez MD at 16:49 EST , Brain MRI 11/10/21 08:30 IMPRESSION: Normal unenhanced MRI of the brain. Marrow replacing lesion of the clivus worrisome for metastatic disease and correlation with bone scan would be useful. Electronically Signed: Torres Arechiga MD at 10:54 EST , Head MRA 11/10/21 08:30 IMPRESSION: Normal MRA of the head. 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 Electronically Signed: Torres Arechiga MD at 10:50 EST , Physical Exam Const alert, oriented x3 and no apparent distress HEENT head/scalp atraumatic and moist oral mucous membranes Head and Scalp: normocephalic Eyes Eyes Narrative: Ptosis with right eye deviation. Neck no lymphadenopathy and no JVD Resp normal respiratory effort, no retractions and no use of accessory muscles Cardio regular rate, regular rhythm and no JVD GI normal to inspection, nondistended, normoactive bowel sounds Extremity normal to inspection, full ROM and no clubbing, cyanosis or edema Neuro Neuro Narrative: See eye. Besides ptosis and right eye deviation no focal neurological deficits noted. Psych affect normal Assessment & Plan Assessment/Plan (1) 3rd cranial nerve palsy: QUALIFIERS: Laterality: right Qualified Code(s): H49.01 - Third [oculomotor] nerve palsy, right eye (2) Geo disease: PLAN: Day 1 Discharge planning: Current plan is for patient to discharge home when medically ready. 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 Patient still with ongoing ptosis and right eye deviation. Awaiting SOC consult/recommendations. 2) suspected [place]'s disease Patient with edema about the upper back and neck, possible buffalo hump. Patient reports that this is normal for him, awaiting serum cortisol level. 3) DM2 Continue home glimepiride and Accu-Cheks with sliding scale insulin. Hemoglobin A1c is 7.3, should follow-up with primary care provider on discharge for any follow-up diabetic care. DVT prophylaxis - Lovenox Patient seen by Los Valle PA-C, under the supervision of Dr. Elizondo. Time spent on patient care: 10 minutes. Documented by User: Dr. Harry Elizondo DO 11/11/21 12:54 Objective Data Lab / Micro Data Result Diagrams: 11/09/21 15:00 11/09/21 15:00 Physical Exam Const alert and no apparent distress HEENT HEENT Narrative: Ptosis right eye GI normal to inspection, nondistended, normoactive bowel sounds, soft to palpation, non-tender and non-distended Extremity normal to inspection Charges/Coding Addendum Addendum: Patient seen and examined independently. Data and vitals reviewed. I agree with the above note by the physician social service assistant. 1. Suspected pneumococcal pneumonia
[2021-11-10 16:16] LABS: Bedside Glucose 128 mg/dL (74-106)
[2021-11-10] MEDS: Latanoprost 0.005% 1 Bottle 1 DRP EACH EYE (21:40)
[2021-11-10] MEDS: Atorvastatin Calcium 40 MG Tablet PO (21:40)
[2021-11-10 21:46] LABS: Bedside Glucose 146 mg/dL (74-106)
[2021-11-11] VITALS (7 sets, daily range): BP systolic 115–155; BP diastolic 71–94; PULSE 87–108; RESP 16–18; TEMP 36.2–36.6; O2SAT 93–100
[2021-11-11] MEDS: Insulin Lispro 100 UNIT/ML INSULN.PEN SC ×2 (06:35→10:47)
[2021-11-11] MEDS: Aspirin E.C. 81 MG Tablet PO (10:13)
[2021-11-11] MEDS: Enoxaparin 40 MG/0.4 ML Syringe SC (10:13)
[2021-11-11] MEDS: Mirabegron 50 MG TAB.ER.24H PO (10:13)
[2021-11-11] MEDS: Multivitamins,Therapeutic Tablet 1 TABLET PO (10:13)
[2021-11-11] MEDS: Glimepiride 1 MG Tablet PO (10:13)
[2021-11-11] MEDS: Gabapentin 300 MG Capsule PO (10:13)
[2021-11-11] MEDS: Timolol 0.5% 5ML OPTH.BTL 1 DRP EACH EYE (10:13)
[2021-11-11] MEDS: hydroCHLOROthiazide 25 MG Tablet PO (10:13)
--- NOTE | 2021-11-11 10:20 | PCM.DC ---
Discharge Instructions Diet Discharge Diet: No restrictions Activity Discharge Activity: Return to Normal Activity Weight Bearing Status: Weight bearing as tolerated Dressing / Incision Call your doctor if you observe: Fever of 101 or Higher, Numbness or Tingling, Shortness of breath, Dizziness, Chest pain, Increased palpitations (irregular heartbeat) and Calf discomfort Follow Up Care Please Follow Up With: Primary care provider When: Within the next two weeks. Test Results: Test results from this visit will be discussed in further detail at your follow-up appointment, if applicable. Discharge Plan Admission Admit Date/Time: 11/09/21 17:17 Primary Reason for Your Visit: Double vision Attending Provider: Harry Elizondo Primary Care Provider: Elena Schwartz Instructions Additional Instructions / Restrictions: * Continue with eye patch, alternate sides daily. * Proceed to your schedules Ophthalmology appointment after discharge. * A transplant case manager will contact you on Friday11/12/2021 in regards to establishing home health care to better assist your with your activities of daily living. Discharge Orders/Prescriptions Prescriptions: New clopidogrel 75 mg Tablet 75 mg PO DAILY Qty: 30 RF: 0 Continued aspirin [Adult Low Dose Aspirin] 81 mg tablet,delayed release (DR/EC) 81 mg PO DAILY RF: 0 multivitamin 1 EACH tablet 1 ea PO DAILY RF: 0 latanoprost 1 DROP bottle 1 drp EACH EYE QHS RF: 0 atorvastatin 40 MG tablet 40 mg PO QHS RF: 0 hydrochlorothiazide 25 MG tablet 25 mg PO DAILY RF: 0 glimepiride 1 MG tablet 1 mg PO DAILY RF: 0 timolol maleate 1 DROP drops 1 drp EACH EYE DAILY RF: 0 Myrbetriq 50 mg Tablet Extended Release 24 Hr 50 mg PO DAILY RF: 0 gabapentin 300 mg capsule 300 mg PO DAILY RF: 0 artificial tears solution Drops 1 - 2 drp ophthalmic (eye) Q4H PRN PRN (Reason: Dry Eye(S)) RF: 0 Referrals / Follow Up: Elena Schwartz MD [Primary Care Provider] - Within 2 Weeks Disposition Disposition (needs filled in before D/C Order can be placed): Home, Self Care
[2021-11-11] MEDS: Clopidogrel Bisulfate 300 MG Tablet PO (10:46)
[2021-11-11 11:11] LABS: Bedside Glucose 272 mg/dL (74-106)
--- NOTE | 2021-11-11 12:48 | PCM.DC.SUM ---
Documented by User: Los DOMINGUEZ 11/11/21 12:59 Providers Date of Admission: 11/09/21 Date of Discharge: 11/11/21 Primary Care Physician: Dr. 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 (3) CVA (cerebral vascular accident): Status: Acute Code(s): I63.9 - Cerebral infarction, unspecified Medications at Discharge Home Medications atorvastatin 40 mg PO QHS 03/01/19 hydrochlorothiazide 25 mg PO DAILY 03/01/19 latanoprost 1 drp EACH EYE QHS 03/01/19 multivitamin 1 ea PO DAILY 03/01/19 glimepiride 1 mg PO DAILY 07/03/20 timolol maleate 1 drp EACH EYE DAILY 07/03/20 aspirin 81 mg tablet,delayed release 81 mg PO DAILY 08/28/20 Myrbetriq 50 mg PO DAILY 01/18/21 artificial tears solution 1 - 2 drp OPHTHALMIC (EYE) Q4H PRN PRN 11/09/21 gabapentin 300 mg PO DAILY 11/09/21 clopidogrel 75 mg PO DAILY #30 tab 11/11/21 Hospital Course Procedures 2-D Echocardiogram and Transthoracic echo Summary of Care Provided Minutes Spent on Discharge: 20 Hospital Course: Day 1 Discharge planning: Current plan is for patient to discharge home when medically ready. 1) stroke SOC consult obtained, believes diplopia eye deviation are due to small paramedian pontine or midbrain stroke. Brain MRI read as normal, although there was a lesion of the clivus worrisome for possible metastatic disease. Head MRA was read as normal, but there was concern for occluded left vertebral artery. Echocardiogram obtained and demonstrated normal LV size and systolic function, an EF of 65% and stage I diastolic dysfunction and pulmonary artery systolic pressure of 41 mmHg. Patient will be continued on aspirin and statin, Plavix will be initiated and patient is to wear eye patch and alternate day today. 2) 3rd cranial nerve palsy SOC consult did not believe patient is having a cranial nerve palsy Ivis patient symptoms are due to stroke as noted above. 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 3) suspected [place]wig's disease Patient with edema about the upper back and neck, possible buffalo hump. Patient reports that this is normal for him, awaiting serum cortisol level. Will contact patient after discharge when serum cortisol level has returned. 4) DM2 Continue home glimepiride and Accu-Cheks with sliding scale insulin. Hemoglobin A1c is 7.3, should follow-up with primary care provider on discharge for any follow-up diabetic care. 5) adult failure to thrive Patient's healthcare power of commercial attorney, his sister Ivette Ramos, voiced concerns of patient's living situation at home. Consulted immigration case worker, Dinora Howe, who contacted patient's healthcare power of commercial attorney and will establish home health care after discharge. Patient seen by Los Valle PA-C, under the supervision of Dr. Elizondo. Time spent on patient care: 20 minutes. Physical Exam Const alert and oriented x3 Nutritional Appearance: morbidly obese HEENT normocephalic, head/scalp atraumatic and hearing grossly normal bilaterally Eyes Eyes Narrative: Ptosis with right eye deviation. Neck no lymphadenopathy, supple and no JVD Resp normal respiratory effort, no retractions and no use of accessory muscles Cardio regular rate, regular rhythm and no JVD GI normal to inspection, nondistended, normoactive bowel sounds Extremity normal to inspection Skin no rashes or lesions noted Neuro CN's II-XII intact bilaterally Neuro Narrative: Besides right eye deviation, no focal neurological deficits noted. Psych affect normal Weight / BMI Weight Weight: 277 lb 8.992 oz Body Mass Index (BMI) 47.6 ABG / Lab / Microbiology Data Result Diagrams: 11/09/21 15:00 11/09/21 15:00 Laboratory: Laboratory Results - last 24 hr 11/10/21 16:09: POC Glucose 128 H 11/10/21 21:36: POC Glucose 146 H 11/11/21 10:45: POC Glucose 272 H Radiography Diagnostic Testing: Radiology Impression Echocardiogram 11/09/21 18:10 Interpretation Summary Normal LV size. Left ventricular systolic function is normal. The estimated ejection fraction is 65 %. Stage 1 diastolic dysfunction. Pulmonary artery systolic pressure is 41 mmHg. Ordering Physician: Harry Elizondo Referring Physician: Elena Schwartz Performed By: Deborah Rodgers, DARA, RVT D/C Instructions Discharge Diet: No restrictions Weight Bearing Status: Weight bearing as tolerated Call your doctor if you observe: Fever of 101 or Higher, Numbness or Tingling, Shortness of breath, Dizziness, Chest pain, Increased palpitations (irregular heartbeat) and Calf discomfort Please Follow Up With: Primary care provider When: Within the next two weeks. Meaningful Use Info Meaningful Use Diagnoses (Choose all that apply): Ischemic CVA CVA Therapy Assessed for PT,OT and/or ST?: Yes Ischemic Stroke Antithrombotic order at d/c?: Yes Dx of Atrial fib/flutter?: No Statins at discharge?: Yes Primary Dx Acute Ischemic CVA?: Yes IV tPA ordered during stay?: No Reason IV t-PA not ordered: Treatment not Indicated Discharge Plan Admission Admit Date/Time: 11/09/21 17:17 Primary Reason for Your Visit: Double vision Attending Provider: Harry Elizondo Primary Care Provider: Elena Schwartz S Instructions Additional Instructions / Restrictions: * Continue with eye patch, alternate sides daily. * Proceed to your schedules Ophthalmology appointment after discharge. * A immigration case worker will contact you on Friday11/12/2021 in regards to establishing home health care to better assist your with your activities of daily living. Discharge Orders/Prescriptions Prescriptions: New clopidogrel 75 mg Tablet 75 mg PO DAILY Qty: 30 RF: 0 Continued aspirin [Adult Low Dose Aspirin] 81 mg tablet,delayed release (DR/EC) 81 mg PO DAILY RF: 0 multivitamin 1 EACH tablet 1 ea PO DAILY RF: 0 latanoprost 1 DROP bottle 1 drp EACH EYE QHS RF: 0 atorvastatin 40 MG tablet 40 mg PO QHS RF: 0 hydrochlorothiazide 25 MG tablet 25 mg PO DAILY RF: 0 glimepiride 1 MG tablet 1 mg PO DAILY RF: 0 timolol maleate 1 DROP drops 1 drp EACH EYE DAILY RF: 0 Myrbetriq 50 mg Tablet Extended Release 24 Hr 50 mg PO DAILY RF: 0 gabapentin 300 mg capsule 300 mg PO DAILY RF: 0 artificial tears solution Drops 1 - 2 drp ophthalmic (eye) Q4H PRN PRN (Reason: Dry Eye(S)) RF: 0 Referrals / Follow Up: Elena Schwartz MD [Primary Care Provider] - Within 2 Weeks Disposition Disposition (needs filled in before D/C Order can be placed): Home, Self Care Documented by User: Dr. Harry Elizondo DO 11/11/21 13:26 Providers Date of Admission: 11/09/21 Reason For Visit: DIPLOPIA Medications at Discharge Home Medications atorvastatin 40 mg PO QHS 03/01/19 hydrochlorothiazide 25 mg PO DAILY 03/01/19 latanoprost 1 drp EACH EYE QHS 03/01/19 multivitamin 1 ea PO DAILY 03/01/19 glimepiride 1 mg PO DAILY 07/03/20 timolol maleate 1 drp EACH EYE DAILY 07/03/20 aspirin 81 mg tablet,delayed release 81 mg PO DAILY 08/28/20 Myrbetriq 50 mg PO DAILY 01/18/21 artificial tears solution 1 - 2 drp OPHTHALMIC (EYE) Q4H PRN PRN 11/09/21 gabapentin 300 mg PO DAILY 11/09/21 clopidogrel 75 mg PO DAILY #30 tab 11/11/21 Hospital Course Operations None Procedures 2-D Echocardiogram Summary of Care Provided Minutes Spent on Discharge: 32 Hospital Course: Patient seen and examined independently. Data and vitals reviewed. I agree with the above note by the physician product development assistant. 66-year-old male presents with diplopia and ptosis. Patient underwent a stroke work-up that was unremarkable. Patient was seen by [facility] [place] who felt that patient had may have had a small paramedian pontine or midbrain stroke. Neurology recommended clopidogrel loading as well as dosing. Additionally recommending follow-up with ophthalmology. Had a discussion with the patient's sister who is been very involved in the patient's care and she is concerned about the patient returning to his home. 10 the plan is for the patient to stay at his father's house however eventually his father's house again he gets older as his father is currently in a senior care. Patient lives in a very old home built in the that is not very practical for him at this time. Eventually plan to get him into an independent nerve assisted living. Physical Exam Const alert and no apparent distress Eyes Eyes Narrative: Disconjugate gaze with right lateral gaze. Right eye deviated up and out. Ptosis of the right eyelid. Neuro Sensorium / Orientation: awake and alert ABG / Lab / Microbiology Data Result Diagrams: 11/09/21 15:00 11/09/21 15:00 Discharge Plan Admission Admit Date/Time: 11/09/21 17:17 Primary Reason for Your Visit: Double vision Attending Provider: Harry Elizondo Primary Care Provider: Elena Schwartz Instructions Additional Instructions / Restrictions: * Continue with eye patch, alternate sides daily. * Proceed to your schedules Ophthalmology appointment after discharge. * A immigration case worker will contact you on Friday11/12/2021 in regards to establishing home health care to better assist your with your activities of daily living. Discharge Orders/Prescriptions Prescriptions: New clopidogrel 75 mg Tablet 75 mg PO DAILY Qty: 30 RF: 0 Continued aspirin [Adult Low Dose Aspirin] 81 mg tablet,delayed release (DR/EC) 81 mg PO DAILY RF: 0 multivitamin 1 EACH tablet 1 ea PO DAILY RF: 0 latanoprost 1 DROP bottle 1 drp EACH EYE QHS RF: 0 atorvastatin 40 MG tablet 40 mg PO QHS RF: 0 hydrochlorothiazide 25 MG tablet 25 mg PO DAILY RF: 0 glimepiride 1 MG tablet 1 mg PO DAILY RF: 0 timolol maleate 1 DROP drops 1 drp EACH EYE DAILY RF: 0 Myrbetriq 50 mg Tablet Extended Release 24 Hr 50 mg PO DAILY RF: 0 gabapentin 300 mg capsule 300 mg PO DAILY RF: 0 artificial tears solution Drops 1 - 2 drp ophthalmic (eye) Q4H PRN PRN (Reason: Dry Eye(S)) RF: 0 Referrals / Follow Up: Elena Schwartz MD [Primary Care Provider] - Within 2 Weeks Disposition Disposition (needs filled in before D/C Order can be placed): Home, Self Care Charges/Coding Visit Charges Inpatient E&M: 52842 Disch Hosp
--- NOTE | 2021-11-12 09:00 | CASEMGMT ---
Addendum entered by Dinora Howe 11/12/21 09:43: Received vm from pt sister Tarah. She states after she spoke with this RN CM yesterday she spoke with the hospitalist and determined that they do not feel HHC would be necessary. Original Note: Late entry for 11/11/2021 at 1010- Received notification requesting call back from PA who states pt sister would like to discuss HHC for pt. States pt crawls around home on the stairs. Made aware this RN CM saw pt today who reported no homegoing needs. TC to pt sister Tarah, she states she would like to discuss pt care with her other sister. Provided her this RN CM phone number, she will call back tomorrow and RN CM will assist.
[2021-11-12 10:21] LABS: Bedside Glucose 179 mg/dL (74-106)
[2021-11-12 10:21] LABS: Bedside Glucose 180 mg/dL (74-106)
== END 2021-11-11 14:17 | disposition home or self-care (01) | DRG 65 ==
LOC: ED 17:11 → PCU 18:11
PROVIDERS: Emergency Provider Nurse Practitioner; PCP Family Medicine
DX: I63.9 Cerebral infarction, unspecified (principal); E11.65 Type 2 diabetes mellitus with hyperglycemia; Z68.42 Body mass index [BMI] 45.0-49.9, adult; E24.0 Pituitary-dependent Cushing's disease; H49.01 Third [oculomotor] nerve palsy, right eye; R62.7 Adult failure to thrive; Z99.81 Dependence on supplemental oxygen; I10 Essential (primary) hypertension; H53.8 Other visual disturbances; N40.1 Benign prostatic hyperplasia with lower urinary tract symptoms; Z79.84 Long term (current) use of oral hypoglycemic drugs; G89.29 Other chronic pain; E66.9 Obesity, unspecified; Z79.82 Long term (current) use of aspirin; Z79.899 Other long term (current) drug therapy; Z86.718 Personal history of other venous thrombosis and embolism
CPT/HCPCS: 36415; 70450; 70544; 70551; 80048; 80061; 82533; 82962; 83036; 84443; 84484; 85025; 92610; 93005; 93306; 96372; 97162; 97165; 97802; 99218; 99283; Q9957; A4216; C8929; G0378

== ENCOUNTER → 2022-06-17 | Outpatient (CLI) | payer OTHER, SELFPAY ==
[2022-06-17 16:29] LABS: Microalbumin,Random Urine 39.2 mg/L (NO RANGE EST.); Microalbumin:Creatinine Ratio 17.3 mg/g CRE (<30 mg/g CRE)
[2022-06-17 17:13] LABS: AST(SGOT) 26 U/L (15-37); Alanine Aminotransfer ALT/SGPT 30 U/L (16-61); Albumin, Serum 3.3 g/dL (3.2-5.0); Alkaline Phosphatase 121 U/L (45-117); Anion Gap 8 (5-15); BUN 17 mg/dL (7-18); BUN/Creat Ratio 20.3 RATIO (10-20); Calcium,Total 9.4 mg/dL (8.5-10.1); Chloride 101 mmol/L (98-107); Cholesterol 132 mg/dL (200); Creatinine, Serum 0.84 mg/dL (0.70-1.30); EST Glomerular Filtration Rate 98 mL/min (>60); Est Glom Filt Rate - Afr Amer 118 mL/min (>60); Globulin 4.6 g/dL (2.2-4.2); Glucose 215 mg/dL (74-106); High Density Lipoprotein 35 mg/dL; Potassium 3.7 mmol/L (3.5-5.1); Protein, Total 7.9 g/dL (6.4-8.2); Sodium Level 138 mmol/L (136-145); Triglycerides 202 mg/dL; Very Low Density Lipoprotein 40 mg/dL (5-40)
== END | disposition home or self-care (01) ==
LOC: MFPLAB 13:48
PROVIDERS: PCP Family Medicine; Visit Provider Family Medicine
DX: E11.9 Type 2 diabetes mellitus without complications (principal)
CPT/HCPCS: 36415; 80048; 80061; 80076; 82043; 82570

== ENCOUNTER 2022-12-10 15:31 | Outpatient (CLI) | payer MEDICARE, OTHER, SELFPAY ==
[2022-12-10 18:56] LABS: PSA,Total - Annual Screen 0.47 ng/mL (0.00-4.00)
== END 2022-12-10 23:59 | disposition home or self-care (01) ==
LOC: MFPLAB 15:35
PROVIDERS: PCP Family Medicine; Referring Provider Family Medicine; Visit Provider Family Medicine
DX: Z00.00 Encounter for general adult medical examination without abnormal findings (principal)
CPT/HCPCS: 36415; 84153; G0103

== ENCOUNTER → 2022-12-17 | Outpatient (CLI) | payer MEDICARE, OTHER, SELFPAY ==
--- NOTE | 2022-12-17 08:30 | RAD_ITS ---
EXAM: FL Esophagram, Double Contrast HISTORY: Dysphagia, choking, particularly with meats COMPARISON: None FINDINGS: Air contrast barium esophagram performed. Swallowing the barium was initiated normally. No nasopharyngeal reflux or aspiration. No Zenker diverticulum noted on the lateral view. Normal peristaltic activity noted in the proximal mid esophagus. There are some tertiary contractions in the distal esophagus. No mucosal irregularity noted in the esophagus. No evidence of hiatal hernia but there was evidence of GE reflux. Patient was unable to swallow the 13 mm barium pill, and may benefit from a modified barium esophagram to evaluate swallowing of different consistencies of food to include solids. RAD/Esophagus Dual Contrast IMPRESSION: Presbyesophagus with GE reflux Electronically Signed: Curt Torres MD at 9:12 EDT ,
== END | disposition home or self-care (01) ==
LOC: RAD 07:45
PROVIDERS: PCP Family Medicine; Referring Provider Family Medicine; Visit Provider Family Medicine
DX: R13.10 Dysphagia, unspecified (principal)
CPT/HCPCS: 74221

== ENCOUNTER → 2023-03-06 | Outpatient (CLI) | payer MEDICARE, OTHER, SELFPAY ==
[2023-03-06 17:01] LABS: PSA,Total - Annual Screen 0.43 ng/mL (0.00-4.00)
== END | disposition home or self-care (01) ==
LOC: LAB 15:14
PROVIDERS: PCP Family Medicine; Referring Provider Urology; Visit Provider Urology
DX: Z12.5 Encounter for screening for malignant neoplasm of prostate (principal)
CPT/HCPCS: 36415; 84153; G0103

== ENCOUNTER 2023-05-21 11:13 | Day surgery (SDC) | payer MEDICARE, OTHER, SELFPAY ==
[2023-05-21] MEDS: Lactated Ringers 1,000 ML 15 ML IV (11:42)
[2023-05-21 11:44] VITALS: BP 140/80; PULSE 89; RESP 18; TEMP 36.6; O2SAT 96; BMI 46.9
[2023-05-21 12:16] LABS: Bedside Glucose 153 mg/dL (74-106)
--- NOTE | 2023-05-21 13:05 | PCM.HP.STD ---
[facility] - General General Date of Service: 05/21/23 Chief Complaint: Urge incontinence [facility] Narrative NEGRA VIVAS, is a 67 M who presents with severe urge incontinence plan to do a cystoscopy and Botox injection of the bladder 200 units he is on medical therapy and this is failed for him in the past and past he has taken Botox injection and done really well but the Botox injection is worn off so he needs another injection plan to do 200 units patient understands as well that this may wear off in about 6 to 9 months. [facility] Medical History Arthritis Back pain BPH with obstruction/lower urinary tract symptoms CPAP (continuous positive airway pressure) dependence Diabetes Diabetes mellitus type 2, controlled DVT (deep venous thrombosis) Edema Gastric reflux High cholesterol History of Tripathi's palsy History of echocardiogram History of steroid therapy Hypertension Injury of head and neck Non-smoker On home oxygen therapy Pain aggravated by walking Shortness of breath on exertion Sleep apnea Wears glasses Home Medications atorvastatin 40 mg tablet 40 mg PO QHS cholesterol 03/01/19 [History Last Taken 11/08/21] hydrochlorothiazide 25 mg tablet 25 mg PO DAILY bp 03/01/19 [History Last Taken 11/09/21] latanoprost 0.005 % eye drops 1 drp EACH EYE QHS glacoma 03/01/19 [History Last Taken 11/08/21] multivitamin 1 ea PO DAILY supplement 03/01/19 [History Last Taken 11/09/21] glimepiride 1 mg tablet 1 mg PO DAILY diabetes 07/03/20 [History Last Taken 11/09/21] timolol maleate 0.5 % eye drops 1 drp ophthalmic (eye) DAILY eye health 07/03/20 [History Last Taken 11/09/21] aspirin 81 mg tablet,delayed release (Adult Low Dose Aspirin) 81 mg PO DAILY heart health 08/28/20 [History Last Taken 05/13/23] artificial tears solution eye drops 1 - 2 drp ophthalmic (eye) Q4H PRN PRN Dry Eye(S) 11/09/21 [History Last Taken 11/09/21] clopidogrel 75 mg tablet 75 mg PO DAILY #30 tabs 11/11/21 [Rx Last Taken 05/13/23] semaglutide 1 mg/dose (2 mg/1.5 mL) subcutaneous pen injector (Ozempic) 1 mg subcut QWEEK 05/07/23 [History Last Taken Unknown] pantoprazole 40 mg tablet,delayed release 40 mg PO DAILY 05/14/23 [History Last Taken Unknown] ciprofloxacin HCl 500 mg tablet (Cipro) 500 mg PO BID #10 tabs 05/21/23 [Rx Last Taken Unknown] Allergy/AdvReac Type Severity Reaction Status Date / Time feathers Allergy Other Verified 05/14/23 08:20 acetaminophen [From Tylenol] AdvReac Mild pain Verified 05/14/23 08:20 gabapentin AdvReac Mild pain Verified 05/14/23 08:20 Family History (Reviewed 05/07/23 @ 11:44 by Fior Patel INFERTILITY MEDICAL ASSISTANT, INFERTILITY MEDICAL ASSISTANT-C) Mother Diabetes Surgical History History of cataract extraction with lens replacement History of tonsillectomy History of total knee replacement (TKR) Hx of right cataract extraction Hx of surgical procedure Hx of transurethral resection of prostate Social History (Reviewed 05/07/23 @ 11:44 by Fior Patel INFERTILITY MEDICAL ASSISTANT, INFERTILITY MEDICAL ASSISTANT-C) Smoking Status: Never smoker Vital Signs Vital Signs Vital Signs: 05/21/23 11:44 05/21/23 11:44 Temperature 97.8 F Temperature Source Temporal Pulse Rate 89 Respiratory Rate 18 Respiratory Pattern Normal Blood Pressure 140/80 H Blood Pressure Mean 100 Blood Pressure Source Monitor Blood Pressure Position Semi-Fowlers Blood Pressure Location Left Arm Pulse Ox 96 Oxygen Delivery Method Room Air Weight Weight: 120.202 kg Body Mass Index (BMI) 46.9 Results Lab / Micro Data Labs: Laboratory Results - last 24 hr 05/21/23 11:31: POC Glucose 153 H
--- NOTE | 2023-05-21 13:06 | DCINST_ITS ---
Discharge Instructions Diet Discharge Diet: No restrictions Activity Discharge Activity: Return to Normal Activity Follow Up Care Please Follow Up With: Mehdi Morales MD Test Results: Test results from this visit will be discussed in further detail at your follow- up appointment, if applicable. Discharge Plan Admission Primary Reason for Your Visit: botox 200U Attending Provider: Mehdi Morales Primary Care Provider: Elena Schwartz Discharge Orders/Prescriptions Prescriptions: New ciprofloxacin HCl [Cipro] 500 mg tablet 500 mg PO BID Qty: 10 0RF Continued aspirin [Adult Low Dose Aspirin] 81 mg tablet,delayed release (DR/EC) 81 mg PO DAILY Ozempic 1 mg/dose (2 mg/1.5 mL) pen injector 1 mg subcut QWEEK multivitamin 1 EACH tablet 1 ea PO DAILY latanoprost 1 DROP bottle 1 drp EACH EYE QHS atorvastatin 40 MG tablet 40 mg PO QHS hydrochlorothiazide 25 MG tablet 25 mg PO DAILY glimepiride 1 MG tablet 1 mg PO DAILY timolol maleate 1 DROP drops 1 drp ophthalmic (eye) DAILY artificial tears solution Drops 1 - 2 drp ophthalmic (eye) Q4H PRN PRN (Reason: Dry Eye(S)) clopidogrel 75 mg Tablet 75 mg PO DAILY Qty: 30 0RF pantoprazole 40 mg tablet,delayed release (DR/EC) 40 mg PO DAILY Referrals / Follow Up: Elena Schwartz MD [Primary Care Provider] - Disposition Disposition (needs filled in before D/C Order can be placed): Home, Self Care
[2023-05-21] MEDS: Cefazolin 2 GM in 0.9% Normal Saline (100mL Bag) 100 ML IV (13:31)
[2023-05-21] MEDS: Botulinum Toxin A 100 Units Vial 200 UNITS IJ (13:46)
[2023-05-21] MEDS: 0.9% Normal Saline (Pres. free 10 ML Vial (13:46)
--- NOTE | 2023-05-21 13:49 | OP.PCM_ITS ---
Report of Operation Date of Procedure: 05/21/23 Pre-Operative Diagnosis: Urge incontinence Post-Operative Diagnosis: The same Surgery/Procedure Performed:: Cystoscopy injection of Botox in the bladder to 200 units Description of Surgical Findings:: Patient was a back to the operating room at a smooth induction of anesthesia he was placed in dorsolithotomy position. Went into the bladder with a 21 [place] rigid cystourethroscope. Got to the prostate had a very high riding bladder neck extremely difficult anatomy the prostate was very high riding could barely see inside the bladder tried to get the needle to go into the trigone beyond the trigone area but very difficult to reach also he was under MAC local and pushing really hard. So I did inject 200 units of Botox into several areas in the back of the bladder but very difficult to reach and very difficult injections. I am not sure if this would be an effective treatment form at the tried again with a flexible scope in the office in the next setting if this does not work. Surgeon: Mehdi Morales Type of Anesthesia: MAC Drains: none Estimated Blood Loss (mL): 0 Admit VTE Documentation VTE Present on Admission: No VTE Mechan Device Prophylaxis: SCD's VTE Pharm Prophylaxis ordered?: No
[2023-05-21 14:00] VITALS: BP 126/74; BP 140/80; PULSE 75; RESP 16; TEMP 36.7; O2SAT 99
[2023-05-21 14:05] VITALS: BP 104/67; BP 140/80; PULSE 71; RESP 16; O2SAT 99
[2023-05-21 14:10] VITALS: BP 112/72; BP 140/80; PULSE 73; RESP 16; O2SAT 98
[2023-05-21 14:15] VITALS: BP 132/68; BP 140/80; PULSE 88; RESP 16; TEMP 36.7; O2SAT 95
[2023-05-21 14:42] VITALS: BP 140/80
== END 2023-05-21 14:49 | disposition home or self-care (01) ==
LOC: SDC 11:15 → AC 11:17
PROVIDERS: PCP Family Medicine; Referring Provider Urology; Visit Provider Urology
PROC: 3E0K8GC Introduction of Other Therapeutic Substance into Genitourinary Tract, Via Natural or Artificial Opening Endoscopic (ICD-10-PCS; CPT 52287; principal; 2023-05-21 12:55)
DX: N39.41 Urge incontinence (principal); Z68.42 Body mass index [BMI] 45.0-49.9, adult; E11.9 Type 2 diabetes mellitus without complications; N40.1 Benign prostatic hyperplasia with lower urinary tract symptoms; N13.8 Other obstructive and reflux uropathy; I10 Essential (primary) hypertension; E78.00 Pure hypercholesterolemia, unspecified; G47.33 Obstructive sleep apnea (adult) (pediatric); E66.9 Obesity, unspecified; Z99.81 Dependence on supplemental oxygen; Z79.02 Long term (current) use of antithrombotics/antiplatelets; Z79.82 Long term (current) use of aspirin; Z79.84 Long term (current) use of oral hypoglycemic drugs; Z79.899 Other long term (current) drug therapy
CPT/HCPCS: 52287; 00910; 82962; J7120; J0585; J2405; J3490

== ENCOUNTER → 2023-06-20 | Outpatient (CLI) | payer MEDICARE, OTHER, SELFPAY ==
[2023-06-20 17:46] LABS: Microalbumin:Creatinine Ratio 54.6 mg/g CRE (<30 mg/g CRE)
[2023-06-20 18:17] LABS: AST(SGOT) 37 U/L (15-37); Alanine Aminotransfer ALT/SGPT 41 U/L (16-61); Albumin, Serum 3.7 g/dL (3.2-5.0); Alkaline Phosphatase 115 U/L (45-117); Anion Gap 8 (5-15); BUN 14 mg/dL (7-18); Calcium,Total 9.5 mg/dL (8.5-10.1); Chloride 101 mmol/L (98-107); Cholesterol 133 mg/dL (200); Creatinine, Serum 0.82 mg/dL (0.70-1.30); EST Glomerular Filtration Rate 100 mL/min (>60); Est Glom Filt Rate - Afr Amer 121 mL/min (>60); Globulin 4.8 g/dL (2.2-4.2); Glucose 128 mg/dL (74-106); High Density Lipoprotein 38 mg/dL; Potassium 3.8 mmol/L (3.5-5.1); Protein, Total 8.5 g/dL (6.4-8.2); Sodium Level 137 mmol/L (136-145); Triglycerides 128 mg/dL; Very Low Density Lipoprotein 26 mg/dL (5-40)
== END | disposition home or self-care (01) ==
PROVIDERS: PCP Family Medicine; Visit Provider Family Medicine
DX: E11.9 Type 2 diabetes mellitus without complications (principal)
CPT/HCPCS: 36415; 80048; 80061; 80076; 82043; 82570

== ENCOUNTER → 2023-12-19 | Outpatient (CLI) | payer MEDICARE, OTHER, SELFPAY ==
[2023-12-19 16:13] LABS: Hemoglobin A1c 6.1 % (3.8-5.6)
== END | disposition home or self-care (01) ==
LOC: MFPLAB 14:05
PROVIDERS: PCP Family Medicine; Visit Provider Family Medicine
DX: E11.9 Type 2 diabetes mellitus without complications (principal); N40.0 Benign prostatic hyperplasia without lower urinary tract symptoms
CPT/HCPCS: 36415; 83036; 84153

== ENCOUNTER → 2024-06-18 | Outpatient (CLI) | payer MEDICARE, OTHER, SELFPAY ==
[2024-06-18 18:12] LABS: AST(SGOT) 23 U/L (15-37); Alanine Aminotransfer ALT/SGPT 35 U/L (16-61); Albumin, Serum 3.6 g/dL (3.2-5.0); Alkaline Phosphatase 113 U/L (45-117); Anion Gap 6 (5-15); BUN 14 mg/dL (7-18); Bilirubin, Direct 0.15 mg/dL (0.00-0.30); Calcium,Total 9.3 mg/dL (8.5-10.1); Chloride 102 mmol/L (98-107); Cholesterol 130 mg/dL (200); Creatinine, Serum 0.78 mg/dL (0.70-1.30); EST Glomerular Filtration Rate 106 mL/min (>60); Est Glom Filt Rate - Afr Amer 128 mL/min (>60); Globulin 4.3 g/dL (2.2-4.2); Glucose 106 mg/dL (74-106); High Density Lipoprotein 37 mg/dL; PSA,Total - Annual Screen 0.37 ng/mL (0.00-4.00); Potassium 4.1 mmol/L (3.5-5.1); Protein, Total 7.9 g/dL (6.4-8.2); Sodium Level 136 mmol/L (136-145); Triglycerides 136 mg/dL; Very Low Density Lipoprotein 27 mg/dL (5-40)
[2024-06-21 17:23] LABS: Microalbumin,Random Urine 18.7 mg/L (NO RANGE EST.); Microalbumin:Creatinine Ratio 9.8 mg/g CRE (<30 mg/g CRE)
== END | disposition home or self-care (01) ==
LOC: MFPLAB 14:07
PROVIDERS: PCP Family Medicine; Visit Provider Family Medicine
DX: E11.9 Type 2 diabetes mellitus without complications (principal); N40.0 Benign prostatic hyperplasia without lower urinary tract symptoms
CPT/HCPCS: 36415; 80048; 80061; 80076; 82043; 82570; 84153; G0103

== ENCOUNTER → 2024-11-11 | Outpatient (CLI) | payer MEDICARE, OTHER, SELFPAY ==
[2024-11-11 13:23] LABS: Hemoglobin A1c 7.9 % (<=5.6)
[2024-11-11 13:25] LABS: Anion Gap 15 (5-15); BUN 15 mg/dL (4-19); BUN/Creat Ratio 18.6 RATIO (10-20); Calcium,Total 9.4 mg/dL (7.6-11.0); Carbon Dioxide 22.3 mmol/L (21.0-32.0); Chloride 100 mmol/L (98-108); Creatinine, Serum 0.83 mg/dL (0.70-1.20); EST Glomerular Filtration Rate 96 (>60); Glucose 229 mg/dL (70-99); Sodium Level 138 mmol/L (133-145)
== END | disposition home or self-care (01) ==
LOC: MFPLAB 09:53
PROVIDERS: PCP Family Medicine; Referring Provider Family Medicine; Visit Provider Family Medicine
DX: E11.9 Type 2 diabetes mellitus without complications (principal)
CPT/HCPCS: 36415; 80048; 83036

== ENCOUNTER → 2025-02-15 | Outpatient (CLI) | payer MEDICARE, OTHER, SELFPAY ==
--- NOTE | 2025-02-15 12:47 | ART_ITS ---
Reason For Study Reason For Study: Other specified peripheral vascular disease I73.89 Procedure A bilateral lower extremity continuous wave Doppler with analog waveform analysis,segmental pressures,and ankle brachial indexes without exercise. Left Segmental Pressures Left brachial= 157mmHg. Left posterior tibial artery = 206mmHg. Left dorsalis pedis artery = >254mmHg. Left digit = 166 mmHg. Right Segmental Pressures Right brachial= 162mmHg. Right posterior tibial artery = 229mmHg. Right dorsalis pedis artery = 202mmHg. Right digit = 171 mmHg. The right posterior tibial artery waveforms are triphasic. The right dorsalis pedis waveforms are triphasic. Indices The right resting ankle brachial index is 1.41. The right ankle brachial index by the posterior tibial artery is 1.41. The right ankle brachial index by the dorsalis pedis is 1.25. The left resting ankle brachial index is 1.27. The left ankle brachial index by the posterior tibial artery is 1.27. The left ankle brachial index by the dorsalis pedis is -NC -. VL/Lower Ext Art Exam w/o Exercis Interpretation Summary Right OMAYRA 1.41, normal. TBI and Doppler/PVR waveforms of the right leg normal a t rest. Left OMAYRA 1.27, normal. TBI and Doppler/PVR waveforms of the left leg normal at rest. Ordering Physician: Wes Mcclellan Referring Physician: Bernard Osborne Performed By: Ely Canela RVT, RDCS
== END | disposition home or self-care (01) ==
PROVIDERS: PCP Family Medicine; Referring Provider Podiatrist; Visit Provider Podiatrist
DX: I73.89 Other specified peripheral vascular diseases (principal)
CPT/HCPCS: 93923

== ENCOUNTER → 2025-02-21 | Outpatient (CLI) | payer MEDICARE, OTHER, SELFPAY ==
[2025-02-21 17:59] LABS: Hemoglobin A1c 6.9 % (<=5.6)
[2025-02-21 18:00] LABS: Anion Gap 12 (5-15); BUN 11 mg/dL (4-19); BUN/Creat Ratio 13.6 RATIO (10-20); Calcium,Total 9.3 mg/dL (7.6-11.0); Carbon Dioxide 27.3 mmol/L (21.0-32.0); Chloride 100 mmol/L (98-108); Cholesterol 128 mg/dL (<=200); Creatinine, Serum 0.83 mg/dL (0.70-1.20); EST Glomerular Filtration Rate 96 (>60); Glucose 95 mg/dL (70-99); High Density Lipoprotein 35 mg/dL; Low Density Lipoprotein Calc. 61 mg/dL; Potassium 3.8 mmol/L (3.3-5.1); Sodium Level 140 mmol/L (133-145); Triglycerides 162 mg/dL; Very Low Density Lipoprotein 32 mg/dL (5-40); cholesterol:hdl ratio screen 3.71
== END | disposition home or self-care (01) ==
LOC: MFPLAB 15:41
PROVIDERS: PCP Family Medicine; Referring Provider Family Medicine; Visit Provider Family Medicine
DX: E11.9 Type 2 diabetes mellitus without complications (principal)
CPT/HCPCS: 36415; 80048; 80061; 83036

== ENCOUNTER 2025-03-04 09:02 | Day surgery (SDC) | payer MEDICARE, OTHER, SELFPAY ==
--- NOTE | 2025-03-03 14:29 | PAT.ANE_ITS ---
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 When Was Last Pacemaker Check QUESTION #4 FULL TEXT: You/Your Family Experience fever (hyperthermia) with Anesthesia Last Oral Intake Last Oral intake: Last Oral Intake NPO since Meds taken in AM with sips of water? 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 Has anyone observed you stop breathing during sleep? STOP Results Positive 03/03/25 12:34 QUESTION #5 FULL TEXT : Do you snore loudly (louder than talking or can be heard through closed doors)? 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 Specify any problems Hx of Preganancy in last 3 N/A 03/03/25 12:34 Months Nurse Filling Out Transfusion DSCHRIBER 03/03/25 12:34 & Questions: Date: 03/03/25 03/03/25 12:34 Time: 12:36 03/03/25 12:34 Patient unable to answer at this time (ie. 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: /Reproductive Hx- sand and gravel plant operator Hx Now No 03/03/25 12:34 Gestational Age (in weeks): EDC: Hx Hx Para Hx Section SAB No 03/03/25 12:34 [facility] Medical History (Updated 03/03/25 @ 12:46 by Lizeth Noyola) Restless legs Dietary restriction Neuropathy History of pain when walking History of edema Arthritis High cholesterol Gastric reflux Wears glasses History of echocardiogram Diabetes History of Tripathi's palsy Non-smoker CPAP (continuous positive airway pressure) dependence Hypertension Back pain Injury of head and neck BPH with obstruction/lower urinary tract symptoms Home Medications ?Medication ?Instructions ?Recorded ?Last Taken ?Type atorvastatin 40 mg tablet 40 mg PO QHS cholesterol 11/08/21 History hydrochlorothiazide 25 mg tablet 25 mg PO DAILY bp 11/09/21 History latanoprost 0.005 % eye drops 1 drp EACH EYE QHS glaco ma 03/01/19 11/08/21 History multivitamin 1 ea PO DAILY supplement 11/09/21 History glimepiride 1 mg tablet 1 mg PO DAILY diabetes 07/0311/09/21 History timolol maleate 0.5 % eye drops 1 drp ophthalmic (eye) DAILY eye 07/03/20 11/09/21 History health aspirin 81 mg tablet,delayed 81 mg PO DAILY heart heal th 08/28/20 05/13/23 History release (Adult Low Dose Aspirin) artificial tears solution eye drops 1 - 2 drp ophthalm ic (eye) Q4H PRN 11/09/21 11/09/21 History PRN Dry Eye(S) clopidogrel 75 mg tablet 75 mg PO DAILY #30 tabs 03/0 02/2702/25/25 Rx semaglutide 1 mg/dose (2 mg/1.5 1 mg subcut SHAH 3 02/20/25 History mL) subcutaneous pen injector (Ozempic) pantoprazole 40 mg tablet,delayed 40 mg PO DAILY 05/14 Unknown History release alpha lipoic acid 600 mg capsule 600 mg PO BID 5 Unknown History cyclosporine 0.05 % eye drops in a 1 drp ophthalmic (e ye) BID 01/28/25 Unknown History dropperette gabapentin 100 mg capsule 100 mg PO QHS 01/28/25 Unkno wn History Allergy/AdvReac Type Severity Reaction Status Date / Time feathers Allergy Other Verified 03/03/25 12:31 acetaminophen (From Tylenol) AdvReac Mild pain Verified 03/03/25 12:31 gabapentin AdvReac Mild pain Verified 03/03/25 12:31 Family History Mother Diabetes Surgical History (Updated 03/03/25 @ 12:46 by Lizeth Noyola) Hx of colonoscopy History of cystoscopy Hx of surgical procedure History of cataract extraction with lens replacement History of tonsillectomy History of total knee replacement (TKR) Hx of transurethral resection of prostate Social History Smoking Status: Never smoker Audit: Pertinent Findings Pertinent Findings EKG Perinent findings: November 09, 2021. Normal sinus rhythm. Echo (EF%) pertinent findings: November 10, 2021. EF 65%. PASP is 41 mmHg. No aortic stenosis is noted. Recommendation Anesthesia Recommendation Anesthesia recommendation: OPTIMIZED for anesthesia
[2025-03-04] VITALS (8 sets, daily range): BP systolic 130–150; BP diastolic 73–87; PULSE 83–92; RESP 16–22; TEMP 36.1–36.8; O2SAT 93–97; BMI 43.0
[2025-03-04] MEDS: Lactated Ringers 1,000 ML 15 ML IV (09:28)
--- NOTE | 2025-03-04 09:43 | PCM.PRE.AN2 ---
ASA Classification* ASA Classification ASA Classification: 3 Assessment & Plan Anesthesia* Anesthesia Assessment Anesthesia Assessment: Discussed sedation and/or anesthesia options, risks, benefits, and alternatives with patient/parents/legal guardian/POA. Questions invited. The patient/parents/legal guardian/POA seems to understand and agrees to proceed with anesthesia plan. Reviewed the physical assessment, medical history, allergy history and patient home medications list prior to surgery/procedure/anesthetic and documented any changes. Performed airway and anesthesia risk assessments. Anesthesia Type Anesthesia Type: MAC History Source History Obtained from:: Patient and Chart Anesthesia Focused Assessment* Temperature: 98.2 F Pulse Rate: 92 Blood Pressure: 141/86 Respiratory Rate: 18 Pulse Ox: 97 Oxygen Delivery Method: Room Air Airway Assessment Mouth opens: >3 cm Mallampati Score: III Teeth Condition: Intact Neck Range of motion (ROM): Limited ROM (Slight decrease in extension. Thick neck.) Labs Anesthesia Preop lab: CBC WBC 8.5 K/mm3 (4.4-11.0) 11/09/21 15:11/09/21 RBC 4.72 M/mm3 (4.6-6.2) 11/09/21 15:00 11/09/21 Hgb 14.9 g/dL (13.0-16.5) 11/09/21 15:00 11/09/21 Hct 44.5 % (40-54) 11/09/21 15:00 11/09/21 Plt Count 247 K/mm3 (150-450) 11/09/21 15:00 11/09/21 CHEMISTRY Potassium 3.8 mmol/L (3.3-5.1) 02/21/25 15:41 02/21/25 Sodium 140 mmol/L (133-145) 02/21/25 15:41 02/21/25 BUN 11 mg/dL (4-19) 02/21/25 15:41 02/21/25 Creatinine 0.83 mg/dL (0.70-1.20) 02/21/25 15:41 02/21/25 Glucose 95 mg/dL (70-99) 02/21/25 15:41 02/21/25 POC Glucose 153 mg/dL (74-106) H 05/21/23 11:31 05/21/23 TSH 2.58 uIU/mL (0.358-3.74) 11/10/21 06:14 11/10/21 COAG Pre-Assessment Diagnosis/Proposed Procedure Planned Operative Procedure(s): CSCOPE OA Anesthesia History 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 When Was Last Pacemaker Check QUESTION #4 FULL TEXT: You/Your Family Experience fever (hyperthermia) with Anesthesia Last Oral Intake Last Oral intake: Last Oral Intake NPO since 21:00 03/04/25 09:25 Meds taken in AM with sips of No 03/04/25 09:25 water? 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 Female No 03/03/25 12:34 HX of Motion Sickness No 03/03/25 12:34 HX of N/V After Surgery No 03/03/25 12:34 Non-Smoker Yes 03/03/25 12:34 Duration of Surgery greater No 03/03/25 12:34 than 60 minutes Number of Risk Factors 1 03/03/25 12:34 PONV Score Low Risk 03/03/25 12:34 Height & Weight Height & Weight: Anesthesia: Height & Weight Height 5 ft 3 in 03/04/25 09:25 Weight: 110 kg 03/04/25 09:25 Body Mass Index (BMI) 43.0 03/04/25 09:25 Respiratory Assessment Respiratory Assessment - hot punch press operator: Respiratory Tract Infection Hx - hot punch press operator Hx Respiratory Tract Infection No 03/03/25 12:34 STOP Sleep Apnea STOP Sleep Apnea - hot punch press operator: STOP Sleep Apnea - hot punch press operator Hx Hypertension Yes: CONTROLLED WITH MED 03/03/25 12:34 Hx Sleep Apnea Yes 03/03/25 12:34 CPAP Yes 03/03/25 12:34 BIPAP No 03/03/25 12:34 Do you snore loudly (louder than talking or can be heard Do you often feel tired/ fatigued/ sleepy during daytime? Has anyone observed you stop breathing during sleep? STOP Results Positive 03/03/25 12:34 QUESTION #5 FULL TEXT : Do you snore loudly (louder than talking or can be heard through closed doors)? 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 Specify any problems Hx of Preganancy in last 3 N/A 03/03/25 12:34 Months Nurse Filling Out Transfusion DSCHRIBER 03/03/25 12:34 & Questions: Date: 03/03/25 03/03/25 12:34 Time: 12:36 03/03/25 12:34 Patient unable to answer at this time (ie. 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: /Reproductive Hx- hot punch press operator Hx Now No 03/03/25 12:34 Gestational Age (in weeks): EDC: Hx Hx Para Hx Section SAB No 03/03/25 12:34 Active Medications Active Medications: Current Medications Generic Name Dose Route Start Last Admin Trade Name Freq PRN Reason Stop Dose Admin Lactated Ringer's 1,000 mls @ 15 mls/hr 03/04/25 09:15 03/04/25 09:28 IV 15 mls/hr .Q48H JENNIFER Administration PFSH Medical History Restless legs Dietary restriction Neuropathy History of pain when walking History of edema Arthritis High cholesterol Gastric reflux Wears glasses History of echocardiogram Diabetes History of Tripathi's palsy Non-smoker CPAP (continuous positive airway pressure) dependence Hypertension Back pain Injury of head and neck BPH with obstruction/lower urinary tract symptoms Home Medications ?Medication ?Instructions ?Recorded ?Last Taken ?Type atorvastatin 40 mg tablet 40 mg PO QHS cholesterol 03/01/19 11/08/21 History hydrochlorothiazide 25 mg tablet 25 mg PO DAILY bp 03/01/19 11/09/21 History latanoprost 0.005 % eye drops 1 drp EACH EYE QHS glacoma 03/01/19 11/08/21 History multivitamin 1 ea PO DAILY supplement 03/01/19 11/09/21 History glimepiride 1 mg tablet 1 mg PO DAILY diabetes 07/03/20 11/09/21 History timolol maleate 0.5 % eye drops 1 drp ophthalmic (eye) DAILY eye 07/03/20 11/09/21 History health aspirin 81 mg tablet,delayed 81 mg PO DAILY heart health 08/28/20 05/13/23 History release (Adult Low Dose Aspirin) artificial tears solution eye drops 1 - 2 drp ophthalmic (eye) Q4H PRN 11/09/21 11/09/21 History PRN Dry Eye(S) clopidogrel 75 mg tablet 75 mg PO DAILY #30 tabs 11/11/21 02/25/25 Rx semaglutide 1 mg/dose (2 mg/1.5 1 mg subcut SHAH 05/07/23 02/13/25 History mL) subcutaneous pen injector (Ozempic) pantoprazole 40 mg tablet,delayed 40 mg PO DAILY 05/14/23 Unknown History release alpha lipoic acid 600 mg capsule 600 mg PO BID 01/28/25 Unknown History cyclosporine 0.05 % eye drops in a 1 drp ophthalmic (eye) BID 01/28/25 Unknown History dropperette gabapentin 100 mg capsule 100 mg PO QHS 01/28/25 Unknown History Allergy/AdvReac Type Severity Reaction Status Date / Time feathers Allergy Other Verified 03/04/25 09:24 acetaminophen (From Tylenol) AdvReac Mild pain Verified 03/04/25 09:24 gabapentin AdvReac Mild pain Verified 03/04/25 09:24 Family History Mother Diabetes Surgical History Hx of colonoscopy History of cystoscopy Hx of surgical procedure History of cataract extraction with lens replacement History of tonsillectomy History of total knee replacement (TKR) Hx of transurethral resection of prostate Social History Smoking Status: Never smoker Review of Systems (Anesthesia) ROS Narrative System reviewed and no additional complaints, except as documented. 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
--- NOTE | 2025-03-04 10:15 | COLBX_PTH ---
PATIENT: NEGRA VIVAS LOC: EN U#:[id number] AGE/SX: 69/M ROOM: RE03/04/[address]: Dr. Juan Woodward MD : 1955 BED: DIS: 03/04/2025 SPEC #: [id number] RECD: 03/04/25 12:49 STATUS: CONSTANTINO MISHRA #: [id number] BEV: 03/04/25 10:[address]: Juan Woodward DEPT: SURGICAL PATHOLOGY RECD BY: Jose Rinaldi ENTERED: 03/04/25 13:46 SP TYPE: COLON BX OTHR DR: Dr. Bernard Osborne MD Tissues: A - Rectum, NOS Procedures: Surgery Specimen Level IV HEADER OPERATION: Colonoscopy, polypectomy PRE-OP DIAGNOSIS: Screening TISSUE SUBMITTED: A- Rectal polyp MICROSCOPIC DIAGNOSIS A. Rectum, polyp, biopsy: - Tubular adenoma. MICROSCOPIC DESCRIPTION Slides are reviewed. GROSS DESCRIPTION A. Received in fixative is one container labeled with the patient's name and designated Rectal polyp. The specimen consists of two irregular fragments of light chan soft tissue that in aggregate measure 0.1 and 0.3 cm. The specimen is totally submitted in one cassette. [place] 03/04/2025 CPT:69364
--- NOTE | 2025-03-04 10:24 | PCM.HP.BLA ---
History and Physical Date of Admission: 03/04/25 Intake Vital Signs 05/07/2407:34 02/22/2513:05 Height 5 ft 3 in 5 ft 3 in Weight: 253 lb 8 oz BMI 44.9 BP 131/86 H Blood Pressure Location Rt brachial Position Sitting Respiration 19 H Pulse 83 Pulse Source Monitor Temp 98.2 F Temp Source Temporal Pulse Oximetry (%) 96 Oxygen Delivery Method room air Intake Visit Reasons: DISCUSS OA SCOPE Chief Complaint: discuss scope Is patient in pain?: No Allergies feathers Allergy (Verified 02/22/25 13:06) Otheracetaminophen (From Tylenol) Adverse Reaction (Mild, Verified 02/22/25 13:06) paingabapentin Adverse Reaction (Mild, Verified 02/22/25 13:06) pain Medications ?Medication ?Instructions ?Recorded ?Confirmed ?Type atorvastatin 40 mg tablet 40 mg PO QHS cholesterol 03/01/19 02/22/25 History hydrochlorothiazide 25 mg tablet 25 mg PO DAILY bp 03/01/19 02/22/25 History latanoprost 0.005 % eye drops 1 drp EACH EYE QHS [place] 03/01/19 02/22/25 History multivitamin 1 ea PO DAILY supplement 03/01/19 02/22/25 History glimepiride 1 mg tablet 1 mg PO DAILY diabetes 07/03/20 02/22/25 History timolol maleate 0.5 % eye drops 1 drp ophthalmic (eye) DAILY eye 07/03/20 02/22/25 History health aspirin 81 mg tablet,delayed 81 mg PO DAILY heart health 08/28/20 02/22/25 History release (Adult Low Dose Aspirin) artificial tears solution eye drops 1 - 2 drp ophthalmic (eye) Q4H PRN 11/09/21 02/22/25 History PRN Dry Eye(S) clopidogrel 75 mg tablet 75 mg PO DAILY #30 tabs 11/11/21 02/22/25 Rx semaglutide 1 mg/dose (2 mg/1.5 1 mg subcut QWEEK 05/07/23 02/22/25 History mL) subcutaneous pen injector (Ozempic) pantoprazole 40 mg tablet,delayed 40 mg PO DAILY 05/14/23 02/22/25 History release alpha lipoic acid 600 mg capsule 600 mg PO BID 01/28/25 02/22/25 History cyclosporine 0.05 % eye drops in a 1 drp ophthalmic (eye) BID 01/28/25 02/22/25 History dropperette gabapentin 100 mg capsule 100 mg PO QHS 01/28/25 02/22/25 History Have you fallen in the past year?: No PFSH Medical History History of steroid therapy Arthritis High cholesterol Gastric reflux Wears glasses History of echocardiogram Diabetes On home oxygen therapy Sleep apnea DVT (deep venous thrombosis) History of Tripathi's palsy Shortness of breath on exertion Non-smoker CPAP (continuous positive airway pressure) dependence Pain aggravated by walking Edema Hypertension Back pain Injury of head and neck Diabetes mellitus type 2, controlled BPH with obstruction/lower urinary tract symptoms Surgical History Hx of surgical procedure Hx of right cataract extraction History of cataract extraction with lens replacement History of tonsillectomy History of total knee replacement (TKR) Hx of transurethral resection of prostate Family History Mother Diabetes Social History Smoking Status: Never smoker HPI HPI HPI: Patient is a 69-year-old male here for screening colonoscopy. He reports no abdominal pain or blood in the stool. He is not remember his last colonoscopy. He reports that he is on Plavix but he does not know why. ROS General General: Yes weight change; No appetite, fatigue, colon cancer, breast cancer or weakness HEENT HEENT: Yes eye injury and eye surgery; No difficulty swallowing, swollen glands or hoarseness Endo Endocrine: No thyroid disease, diabetes mellitus, thyroid cancer, Hair loss, heat intolerance or cold intolerance Skin Skin: No rash or changing moles Musc Musculoskeletal: Yes back problems and arthritis; No rheumatoid arthritis, gout or joint pain Cardio Cardiovascular: No murmur, pacemaker, heart disease, atrial fibrillation, high blood pressure, heart attack, heart stent, palpitations, shortness of breath with exertion or chest pain Psych Psychiatric: No depression, anxiety or hearing voices Resp Respiratory: No shortness of breath, Yes sleep apnea, No cough, No COPD, No asthma, No emphysema and No wheezing Gastro Gastrointestinal: No abdominal pain, No nausea or vomiting, No diarrhea, No constipation, No blood in stool, No acid reflux, No hemorrhoids, No ulcers, No gallbladder problem and No black,tarry stools Corey Hematologic: Yes blood thinners, No blood disorders, No bleeding, No anemia and No blood clots Neuro Neurologic: No numbness, No tingling and No weakness Exam Const General: cooperative Orientation: alert and oriented x3 HENMT Head: normal to inspection Neck Neck: normal visual inspection and full ROM Chest Chest palpation & inspection: normal inspection of the chest Resp Effort & Inspection: normal respiratory effort Auscultation: clear to auscultation bilaterally Cardio Rate: regular rate Rhythm: regular rhythm GI Inspection: non-distended Palpation: soft and nontender Skin General: no rashes or lesions noted Neuro General: patient alert and patient oriented x3 Extrem General: full ROM Psych Appearance: grossly normal Mental Status: mental status grossly normal Assessment and Plan Assessment and Plan (1) Screen for colon cancer: Status: Acute Plan: I explained endoscopy in detail to the patient. I explained the risks including but not limited to stroke or heart attack with anesthesia, perforation of the GI tract, bleeding, infection. I explained that any of these could necessitate further emergency surgery. The patient understands and all questions were answered sufficiently. The patient wishes to proceed with procedure. Patient will hold his Plavix for 5 days before the procedure Juan Woodward MD Pager: [facility] [address] [place] [address], [address] [place] [address] Office: I have examined the patient and the H&P has been reviewed. There are no clinical changes since date of exam.
--- NOTE | 2025-03-04 10:48 | OP.COLON_ITS ---
Patient Name: Wes Roth Procedure Date: 03/04/2025 10:32 AM Date of : 1955 Age: 69 Procedure: Colonoscopy Indications: Screening for colorectal malignant neoplasm Providers: Juan Woodward MD Referring MD: Bernard Osborne MD Medicines: Propofol per Anesthesia Patient Profile: This is a 69 year old male. Refer to note in patient chart for documentation of history and physical. Last Colonoscopy: more than 10 years ago. Complications: No immediate complications. Procedure: Pre-Anesthesia Assessment: - Prior to the procedure, a History and Physical was performed, and patient medications and allergies were reviewed. The patient's tolerance of previous anesthesia was also reviewed. The risks and benefits of the procedure and the sedation options and risks were discussed with the patient. All questions were answered, and informed consent was obtained. Prior Anticoagulants: The patient has taken no anticoagulant or antiplatelet agents. After reviewing the risks and benefits, the patient was deemed in satisfactory condition to undergo the procedure. After I obtained informed consent, the scope was passed under direct vision. Throughout the procedure, the patient's blood pressure, pulse, and oxygen saturations were monitored continuously. The pediatric colonoscope was introduced through the anus and advanced to the cecum, identified by appendiceal orifice and ileocecal valve. The colonoscopy was performed without difficulty. The patient tolerated the procedure well. The quality of the bowel preparation was good. The ileocecal valve, appendiceal orifice, and rectum were photographed. Scope In: 10:38:58 AM Scope Withdrawal Time 0 hours 5 minutes 25 seconds Scope Out: 10:46:09 AM Total Procedure Duration Time 0 hours 7 minutes 11 seconds Findings: A small polyp was found in the rectum. The polyp was removed with a hot snare. Resection and retrieval were complete. The exam was otherwise without abnormality on direct and retroflexion views. Impression: - One small polyp in the rectum, removed with a hot snare. Resected and retrieved. - The examination was otherwise normal on direct and retroflexion views. Recommendation: - Discharge patient to home. - Resume previous diet. - Continue present medications. - Await pathology results. - Repeat colonoscopy in 5 years for surveillance. Procedure Code(s): --- Professional --- 14896, 33, Colonoscopy, flexible; with removal of tumor(s), polyp(s), or other lesion(s) by snare technique Diagnosis Code(s): --- Professional --- Z12.11, Encounter for screening for malignant neoplasm of colon D12.8, Benign neoplasm of rectum CPT copyright 2021 [employer]. All rights reserved. The codes documented in this report are preliminary and upon dye house vat worker review may be revised to meet current compliance requirements. Juan Woodward MD 03/04/2025 10:48:27 AM This report has been signed electronically. Number of Addenda: 0 Note Initiated On: 03/04/2025 10:32 AM
--- NOTE | 2025-03-04 10:48 | OP.CCLET_ITS ---
03/04/2025 Bernard Osborne MD [address] [place] [address] Re : Colonoscopy procedure for Wes Roth Dear Dr. Osborne This procedure was performed on Tuesday, March 04, 2025. My impressions and recommendations are as follows: Impressions : - One small polyp in the rectum, removed with a hot snare. Resected and retrieved. - The examination was otherwise normal on direct and retroflexion views. Recommendations : - Discharge patient to home. - Resume previous diet. - Continue present medications. - Await pathology results. - Repeat colonoscopy in 5 years for surveillance. My findings are described in the full procedure note, which is enclosed. If I can be of further assistance, please feel free to contact me at Doctor phone number(s): , Work: . Sincerely, Juan Woodward MD 03/04/2025 10:48:27 AM This report has been signed electronically.
--- NOTE | 2025-03-04 10:53 | PCM.POST.ANE ---
Anesthesia: Postop Eval I Current Vital Signs Temperature: 97 F Pulse Rate: 84 Blood Pressure: 137/75 Respiratory Rate: 22 Pulse Ox: 94 Assessment Airway patent: Yes Spontaneous unlabored respirations: Yes nausea: No Vomiting: No Anesthesia Complication: No Fluid Hydration Crystalloid volume administer (ml): 500 Total IV fluid infused: 500 Progress Note Anesthesia document: Postop Eval 1 completed: Yes
--- NOTE | 2025-03-04 11:37 | POSTOPAN2_ITS ---
Anesthesia Postop Eval I Sum Postop Eval Completion status Anesthesia document: Postop Eval 1 completed: Yes Anesthesia Postop Eval I Summary Anesthesia Postop Eval I Summary: Anesthesia Postop Eval I: Assessment Summary Airway patent Yes 03/04/25 10:53 DANCE INSTRUCTOR.CSIR Spontaneous unlabored Yes 03/04/25 10:53 DANCE INSTRUCTOR.CSIR respirations Mental status nausea No 03/04/25 10:53 DANCE INSTRUCTOR.CSIR Vomiting No 03/04/25 10:53 DANCE INSTRUCTOR.CSIR Anesthesia Postop Eval I: Fluid Summary Crystalloid volume administer 500 03/04/25 10:53 DANCE INSTRUCTOR.CSIR (ml) Colloids volume administered ( ml) Blood Product volume administered (ml) Total IV fluid infused 500 03/04/25 10:53 DANCE INSTRUCTOR.CSIR Anesthesia Postop Eval I: Summary Notes Anesthesia Complication No 03/04/25 10:53 DANCE INSTRUCTOR.CSIR Anesthesia Complication Comment: Post-operative progress note Anesthesia: Postop Eval II Evaluation Mental status: Awake Pain Level: 0 nausea: No Vomiting: No
--- NOTE | 2025-03-04 11:37 | PCM.POSTANE2 ---
Anesthesia Postop Eval I Sum Postop Eval Completion status Anesthesia document: Postop Eval 1 completed: Yes Anesthesia Postop Eval I Summary Anesthesia Postop Eval I Summary: Anesthesia Postop Eval I: Assessment Summary Airway patent Yes 03/04/25 10:53 LOG CUT OFF [email or web address].CSIR Spontaneous unlabored Yes 03/04/25 10:53 LOG CUT OFF SAWYER.CSIR respirations Mental status nausea No 03/04/25 10:53 LOG CUT OFF SAWYER.CSIR Vomiting No 03/04/25 10:53 LOG CUT OFF SAWYER.CSIR Anesthesia Postop Eval I: Fluid Summary Crystalloid volume administer 500 03/04/25 10:53 LOG CUT OFF SAWYER.CSIR (ml) Colloids volume administered ( ml) Blood Product volume administered (ml) Total IV fluid infused 500 03/04/25 10:53 LOG CUT OFF SAWYER.CSIR Anesthesia Postop Eval I: Summary Notes Anesthesia Complication No 03/04/25 10:53 LOG CUT OFF SAWYER.CSIR Anesthesia Complication Comment: Post-operative progress note Anesthesia: Postop Eval II Evaluation Mental status: Awake Pain Level: 0 nausea: No Vomiting: No
== END 2025-03-04 11:20 | disposition home or self-care (01) ==
LOC: EN 09:03 → AC 09:06
PROVIDERS: PCP Family Medicine; Referring Provider Family Medicine; Visit Provider Surgery
PROC: 0DJD8ZZ Inspection of Lower Intestinal Tract, Via Natural or Artificial Opening Endoscopic (ICD-10-PCS; CPT 45378; principal; 2025-03-04 10:10)
DX: Z12.11 Encounter for screening for malignant neoplasm of colon (principal); E11.9 Type 2 diabetes mellitus without complications; E78.00 Pure hypercholesterolemia, unspecified; Z79.84 Long term (current) use of oral hypoglycemic drugs; I10 Essential (primary) hypertension; Z79.82 Long term (current) use of aspirin; Z79.02 Long term (current) use of antithrombotics/antiplatelets; Z79.85 Long-term (current) use of injectable non-insulin antidiabetic drugs; Z79.899 Other long term (current) drug therapy; Z79.01 Long term (current) use of anticoagulants; K21.9 Gastro-esophageal reflux disease without esophagitis; D12.8 Benign neoplasm of rectum
CPT/HCPCS: 45385; 88305; J2405

== ENCOUNTER → 2025-03-09 | Outpatient (CLI) | payer MEDICARE, OTHER, SELFPAY ==
[2025-03-09 19:00] LABS: Vitamin D,25 Hydroxy 37.7 ng/mL (30-100)
[2025-03-09 19:24] LABS: FOLATES,SERUM (FOLIC ACID) 25.00 ng/mL (4.60-34.80)
[2025-03-09 19:25] LABS: Vitamin B12 2235 pg/mL (180-914)
[2025-03-11 14:08] LABS: ANTINUCLEAR ANTIBODIES DIRECT Negative (Negative)
[2025-03-15 11:08] LABS: VITAMIN B6 12.5 ug/L (3.4-65.2); Vitamin B1, Thiamine 136.4 nmol/L (66.5-200.0)
== END | disposition home or self-care (01) ==
PROVIDERS: PCP Family Medicine; Referring Provider Podiatrist; Visit Provider Podiatrist
DX: G60.8 Other hereditary and idiopathic neuropathies (principal)
CPT/HCPCS: 36415; 82306; 82607; 82746; 84207; 84425; 86038; 86431

== ENCOUNTER → 2025-08-17 | Outpatient (CLI) | payer MEDICARE, OTHER, SELFPAY ==
[2025-08-17 20:24] LABS: Cholesterol 137 mg/dL (<=200); Low Density Lipoprotein Calc. 66 mg/dL; Triglycerides 218 mg/dL; Very Low Density Lipoprotein 44 mg/dL (5-40); cholesterol:hdl ratio screen 3.89
[2025-08-17 20:25] LABS: AST(SGOT) 31 U/L (<=37); Alanine Aminotransfer ALT/SGPT 23 U/L (<=46); Albumin, Serum 4.2 g/dL (3.4-4.8); Alkaline Phosphatase 108 U/L (40-129); Anion Gap 15 (5-15); BUN 15 mg/dL (4-19); BUN/Creat Ratio 17.3 RATIO (10-20); Calcium,Total 9.4 mg/dL (7.6-11.0); Carbon Dioxide 20.9 mmol/L (21.0-32.0); Chloride 102 mmol/L (98-108); Globulin 3.3 g/dL (2.2-4.2); Glucose 78 mg/dL (70-99); Potassium 4.3 mmol/L (3.3-5.1)
== END | disposition home or self-care (01) ==
LOC: MFPLAB 14:17
PROVIDERS: PCP Family Medicine; Visit Provider Family Medicine
DX: E11.9 Type 2 diabetes mellitus without complications (principal)
CPT/HCPCS: 36415; 80053; 80061